=== PATIENT | female | born 1935 | race Caucasian/White ===

== ENCOUNTER 2016-06-17 16:22 | Inpatient (IN) | payer OTHER, MEDICARE ==
[~2016-06-17] VITALS: Ht 157.5 cm; Wt 62.6 kg
[~2016-06-17 16:22] MED LIST changes: -AMIT10TA6 PO; -CNC1KV IJ; -DICL100G18 TOP; -GABA-486 PO; -HYDR-3812 PO; -LOSA50TA36 PO; -OMEG-160 PO; -SERT50TA9 PO
[2016-06-17 16:45] VITALS: BP 135/76
[2016-06-17] MEDS ORDERED: ACETAMINOPHEN 500 MG TAB (TYLENOL) PO PRN (16:45)
[2016-06-17] MEDS ORDERED: ONDANSETRON 4 MG (ZOFRAN) ORAL DISSOLVE TAB PO PRN (16:45)
[2016-06-17] MEDS ORDERED: ALPRAZolam 0.25 MG (XANAX) TAB PO PRN (16:45)
[2016-06-17] MEDS ORDERED: ONDANSETRON 4 MG/2 ML (SDV) Z0FRAN IVP PRN (16:45)
--- OUTSIDE RECORDS SUMMARY | 2016-06-17 16:53 | XMS REPORT | Continuity of Care Document ---
Author Author [facility] Organization [facility] Address Unknown Phone Unavailable Care Team Providers Care Healthcare Customer Service Name Role Phone SHARLENE RUDOLPH DO PCP Insurance Providers Payer Name Policy Number Subscriber Name Relationship Wps Medicare [id number] Charla Holland 20 Self / Same As Patient Advance Directives Directive Response Recorded Date/Time Advance Directives No 02/19/15 8:21am Health Care Power of Loan And Credit Manager No 02/19/15 8:21am Organ Donor Yes 02/19/15 [...] Discharge/Depart Date Attending Provider Registered Clinic [facility] 02/06/16 7:25am BIJU ROJAS MD Registered Clinic [facility] 01/28/16 10:29am BIJU ROJAS MD Discharged Recurring [facility] 11/26/15 10:42am 11:59pm BIJU ROJAS MD
[2016-06-17] MEDS ORDERED: CATHETER FLUSH 10 ML SYR IV PRN (17:00)
[2016-06-17] MEDS ORDERED: NS IV 500 ML 500 ML ONE (17:23)
[2016-06-17] MEDS: fentaNYL INJECTION 100 MCG/2 ML AMP IVP PRN ×3 (17:37→21:58)
[2016-06-17] MEDS: NS IV 1000 ML 1,000 ML IV SCH (17:38)
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
[2016-06-17 18:17] LABS: BASOPHILS # (AUTO) 0.1 10^3/uL (0.0-0.1); BASOPHILS % (AUTO) 1 % (0-10); EOSINOPHILS # (AUTO) 0.2 10^3/uL (0.0-0.3); EOSINOPHILS % (AUTO) 2 % (0-10); LYMPHOCYTES # (AUTO) 1.1 X 10^3 (1.0-4.0); LYMPHOCYTES % (AUTO) 9 % (12-44); MEAN CORPUSCULAR HEMOGLOBIN 31 PG (25-34); MEAN CORPUSCULAR HGB CONC 34 G/DL (32-36); MEAN CORPUSCULAR VOLUME 92 FL (80-99); MEAN PLATELET VOLUME 9.3 FL (7.4-10.4); MONOCYTES % (AUTO) 8 % (0-12); NEUTROPHILS # (AUTO) 10.5 X 10^3 (1.8-7.8); NEUTROPHILS % (AUTO) 82 % (42-75); PLATELET COUNT 201 10^3/uL (130-400); RED BLOOD COUNT 4.47 10^6/uL (4.35-5.85); RED CELL DISTRIBUTION WIDTH 12.7 % (10.0-14.5); WHITE BLOOD COUNT 12.8 10^3/uL (4.3-11.0)
[2016-06-17 18:38] LABS: ALANINE AMINOTRANSFERASE 18 U/L (0-55); ALBUMIN 4.1 G/DL (3.2-4.5); ANION GAP 9 MMOL/L (5-14); ASPARTATE AMINO TRANSFERASE 15 U/L (5-34); BILIRUBIN,TOTAL 0.3 MG/DL (0.1-1.0); BLOOD UREA NITROGEN 15 MG/DL (7-18); BUN/CREATININE RATIO 22; CALCIUM 9.1 MG/DL (8.5-10.1); CARBON DIOXIDE 25 MMOL/L (21-32); CHLORIDE 106 MMOL/L (98-107); CREATININE SERUM 0.68 MG/DL (0.60-1.30); GFR ESTIMATED > 60; GLUCOSE 113 MG/DL (70-105); POTASSIUM 3.7 MMOL/L (3.6-5.0); SODIUM 140 MMOL/L (135-145); TOTAL PROTEIN 6.7 G/DL (6.4-8.2)
[2016-06-17 20:00] VITALS: BP 165/80
[2016-06-17] MEDS: HYDROcodone/APAP 5 MG/325 MG (LORTAB) TAB PO PRN (20:10)
[2016-06-17] MEDS: POLYETHYLENE GLYCOL 17 GM (MIRALAX) PACK PO SCH (21:00)
[2016-06-17] MEDS: BISACODYL 10 MG SUPP (DULCOLAX) PR SCH (21:00)
[2016-06-18] VITALS: BP 179/84
[2016-06-18 04:00] VITALS: BP 130/84
[2016-06-18 05:55] LABS: BASOPHILS # (AUTO) 0.1 10^3/uL (0.0-0.1); BASOPHILS % (AUTO) 1 % (0-10); EOSINOPHILS # (AUTO) 0.6 10^3/uL (0.0-0.3); EOSINOPHILS % (AUTO) 6 % (0-10); LYMPHOCYTES # (AUTO) 1.2 X 10^3 (1.0-4.0); LYMPHOCYTES % (AUTO) 12 % (12-44); MEAN CORPUSCULAR HEMOGLOBIN 32 PG (25-34); MEAN CORPUSCULAR HGB CONC 34 G/DL (32-36); MEAN CORPUSCULAR VOLUME 92 FL (80-99); MEAN PLATELET VOLUME 9.7 FL (7.4-10.4); MONOCYTES # (AUTO) 0.9 X 10^3 (0.0-1.0); MONOCYTES % (AUTO) 8 % (0-12); NEUTROPHILS # (AUTO) 7.9 X 10^3 (1.8-7.8); NEUTROPHILS % (AUTO) 74 % (42-75); PLATELET COUNT 172 10^3/uL (130-400); RED BLOOD COUNT 4.06 10^6/uL (4.35-5.85); RED CELL DISTRIBUTION WIDTH 12.5 % (10.0-14.5); WHITE BLOOD COUNT 10.7 10^3/uL (4.3-11.0)
[2016-06-18] MEDS: NS IV 1000 ML 1,000 ML IV SCH (06:18)
[2016-06-18 06:19] LABS: ALANINE AMINOTRANSFERASE 12 U/L (0-55); ALBUMIN 3.7 G/DL (3.2-4.5); ANION GAP 8 MMOL/L (5-14); ASPARTATE AMINO TRANSFERASE 12 U/L (5-34); BILIRUBIN,TOTAL 0.7 MG/DL (0.1-1.0); BLOOD UREA NITROGEN 9 MG/DL (7-18); BUN/CREATININE RATIO 15; CALCIUM 8.4 MG/DL (8.5-10.1); CARBON DIOXIDE 22 MMOL/L (21-32); CHLORIDE 109 MMOL/L (98-107); CREATININE SERUM 0.62 MG/DL (0.60-1.30); GFR ESTIMATED > 60; GLUCOSE 107 MG/DL (70-105); POTASSIUM 3.5 MMOL/L (3.6-5.0); SODIUM 139 MMOL/L (135-145); TOTAL PROTEIN 5.7 G/DL (6.4-8.2)
[2016-06-18] MEDS: fentaNYL INJECTION 100 MCG/2 ML AMP IVP PRN ×5 (06:25→22:42)
[2016-06-18 08:00] VITALS: BP 115/74
[2016-06-18] MEDS: POLYETHYLENE GLYCOL 17 GM (MIRALAX) PACK PO SCH ×2 (09:00→21:00)
[2016-06-18] MEDS: BISACODYL 10 MG SUPP (DULCOLAX) PR SCH ×2 (09:00→21:00)
[2016-06-18] MEDS ORDERED: amLODIPine 5 MG (NORVASC) TAB PO NR (09:15)
[2016-06-18] MEDS: NS W/KCL 20 MEQ/L 1,000 ML IV SCH ×2 (09:30→21:46)
[2016-06-18] MEDS ORDERED: OMEG-160 PO (09:41)
[2016-06-18] MEDS ORDERED: SERT50TA9 PO (09:41)
[2016-06-18] MEDS ORDERED: AMIT10TA6 PO (09:41)
[2016-06-18] MEDS ORDERED: LOSA50TA36 PO (09:41)
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
[2016-06-18] MEDS: HYDROcodone/APAP 5 MG/325 MG (LORTAB) TAB PO PRN (09:47)
[2016-06-18] MEDS ORDERED: CNC1KV IJ (09:50)
--- NOTE | 2016-06-18 10:50 | Consultation-Cardiology ---
HPI-Cardiology Cardiology Consultation: Date of Consultation 06/18/16 Date of Admission Attending Physician Solange Valentin DO Admitting Physician Justus Hammonds DO Consulting Physician Saúl BARNES MD HPI: Chief Complaint: hip fracture this is a 80-year-old lady with no significant past cardiac history. She presents with a mechanical fall resulting in right hip fracture. Hip surgery under general anesthesia is planned today. She has no cardiac symptoms. She specifically denies chest pain, shortness of breath, syncope, near syncope. She has decent functional capacity. Review of Systems-Cardiology Review of Systems Constitutional: No As described under HPI, No no symptoms reported, No chills, No fever, No lightheadedness, No malaise, No tiredness, No weight loss, No weight gain, No other Eyes: No As described under HPI, No no symptoms reported, No blindness, No blurred vision, No contact lenses, No drainage, No decreased acuity, No foreign body sensation, No glasses, No inflammation, No pain, No photophobia, No previous injury, No shadows, No tunnel vision, No other, No vision change Ears/Nose/Throat: No As described under HPI, No no symptoms reported, No chronic hearing loss, No epistaxis, No ear discharge, No ear pain, No loose teeth, No mouth pain, No mouth swelling, No nasal drainage, No nose pain, No recent hearing loss, No throat pain, No throat swelling, No ulcerations, No other Respiratory: No no symptoms reported, No As described under HPI, No cough, No orthopnea, No shortness of breath, No SOB with excertion, No SOB at rest, No stridor, No wheezing, No other Cardiovascular: No no symptoms reported, No As described under HPI, No chest pain, No edema, No irregular heart rate, No lightheadedness, No palpitations, No syncope, No other Gastrointestinal: No no symptoms reported, No As described under HPI, No abdomen distended, No abdominal pain, No blood streaked bowels, No constipation , No diarrhea, No difficulty swallowing, No nausea, No poor appetite, No poor fluid intake, No rectal bleeding, No vomiting, No other, No nausea/vomiting/ diarrhea, No stool coloration changes Musculoskeletal: joint pain Skin: No no symptoms reported, No As described under HPI, No change in color, No change in hair/nails, No dryness, No lesions, No lumps, No rash, No other, No skin related problems, No ulcerations, No rash on exposed areas, No ulcerations on exposed areas Psychiatric/Neurological: No As described under HPI, No anxiety, No depression , No emotional problems, No focal weakness, No headache, No no symptoms reported , No numbness, No other, No pre-existing deficit, No seizure, No syncope, No tingling, No tremors, No weakness Hematologic: No no symptoms reported, No As described under HPI, No anemia, No blood clots, No easy bleeding, No easy bruising, No swollen glands, No other, No bleeding abnormalities All Other Systems Reviewed Negative Unless Noted: Yes NWD-Cvdwud-Hzdrca Hx Patient Social History Alcohol Use: Denies Use Recreational Drug Use: No Smoking Status: Never a Smoker Recent Foreign Travel: No Recent Infectious Disease Expo: No Physical Abuse Screen: No Sexual Abuse: No Immunizations Up To Date Date of Pneumonia Vaccine: Jun 17, 2013 Date of Influenza Vaccine: Mar 07, 2016 Past Medical History PMH As described under Assessment. Family Medical History Family History: CORNARY THROMBOSIS 19 MOTHER FH: coronary thrombosis Allergies and Home Medications Allergies Coded Allergies: No Known Drug Allergies (Verified , 02/19/15) Home Medications Amitriptyline HCl 10 Mg Tablet 10 MG PO HS (Reported) Aspirin 81 Mg Tablet.dr 81 MG PO HS (Reported) Cholecalciferol (Vitamin D3) 2,000 Unit Capsule 2,000 UNIT PO DAILY (Reported) Cyanocobalamin 1,000 Mcg/Ml Inj 1,000 MCG IJ MONTHLY (Reported) Dicyclomine HCl 20 Mg Tablet 20 MG PO TID PRN PRN ABDOMINAL PAIN (Reported) Glucosa Porter 2Kcl/Chondroitin Porter 1 Each Capsule 1 CAP PO BID (Reported) Losartan Potassium 50 Mg Tablet 50 MG PO DAILY (Reported) Multivitamin with Minerals 1 Each Tablet 1 TAB PO DAILY (Reported) [place]-3/Dha/Epa/Fish Oil 1 Each Capsule 1,000 MG PO DAILY (Reported) Sertraline HCl 50 Mg Tablet 25 MG PO DAILY (Reported) TAKES 1/2 OF A (50 MG) TABLET Simvastatin 20 Mg Tablet 20 MG PO HS (Reported) Ubidecarenone 400 Mg Capsule 400 MG PO DAILY (Reported) Physical Exam-Cardiology Physical Exam Vital Signs/I&O Vital Sign - Last 12Hours 06/18/16 06/18/16 06/18/16 06/18/16 00:00 04:00 08:00 10:08 Temp 98.0 97.2 96.4 Pulse 104 86 78 Resp 18 20 18 B/P 179/84 130/84 115/74 Pulse Ox 91 97 92 88 O2 Delivery Room Air Room Air Room Air 06/18/16 10:28 Pulse Ox 92 O2 Delivery Nasal Cannula FiO2 2 Intake and Output 06/18/16 00:00 Intake Total 620 ml Output Total 500 ml Balance 120 ml Capillary Refill : Less Than 3 Seconds Constitutional: No appears stated age, No AAO x 3, No apparent distress (mild pain), No PERRL, No well-developed, No well-nourished, No other HEENT: No PERRL, No normal ENT inspection, No TMs normal, No pharynx normal, No scleral icterus (R), No scleral icterus (L), No pale conjunctivae (R), No pale conjunctivae (L), No photophobia, No TM abnormal (R), No TM abnormal (L), No pharyngeal erythema, No tonsillar exudate, No other, No discharge, No EOMI, No hearing is well preserved, No hard of hearing, No oral hygience is good, No ulceration, No xanthelasmas are seen Neck: No non-tender, No full range of motion, No supple, No normal inspection, No carotid bruit, No limited range of motion, No lymphadenopathy (R), No lymphadenopathy (L), No tender lateral, No tender midline, No thyromegaly, No other, No carotid pulses are 2 + bilaterally, No with good upstrokes Respiratory: No accessory muscle use, No respiratory distress, No chest tender , No chest expansion is symmetric, No chest is bilaterally symmetric, No lungs clear to percussion, No lungs clear to auscultation, No crackles, No rhonchi, No rales, No stridor, No wheezing, No pleural rub, No other Cardiovascular: No regular rate-rhythm, No irregularly irregular, No extra beats, No parasternal heave is noted, No JVD, No edema, No bradycardia, No tachycardia, No point of maximal impulse, No cardiac thrills are palpable, No S1 and S2, No gallop/S3, No gallop/S4, No diastolic murmur, No systolic murmur, No friction rub, No click, No other Gastrointestinal: No tender, No soft, No round, No distended, No pulsatile mass , No organomegaly, No guarding, No rebound, No tenderness, No hernia, No mass, No audible bowel sounds, No abnormal bowel sounds, No abdominal bruits, No spleenomegaly, No other Rectal: deferred Extremities: other (right hip pain) Neurologic/Psychiatric: No training mgr II-XII nml as tested, No no motor/sensory deficits, No alert, No normal mood/affect, No oriented x 3, No abnormal cerebellar tests, No abnormal training mgr II-XII, No abnormal gait, No aphasia, No EOM palsy, No facial droop, No motor weakness, No sensory deficit, No depressed affect, No disoriented x 3, No other, No grossly intact, No power is 5/5 both on sides Data Review Labs Laboratory Tests 06/17/16 18:00: Alanine Aminotransferase (ALT/SGPT) 18, Albumin 4.1, Alkaline Phosphatase 94, Anion Gap 9, Aspartate Amino Transf (AST/SGOT) 15, BUN/Creatinine Ratio 22, Basophils # (Auto) 0.1, Basophils (%) (Auto) 1, Blood Urea Nitrogen 15, Calcium Level 9.1, Carbon Dioxide Level 25, Chloride Level 106, Creatinine 0.68, Eosinophils # (Auto) 0.2, Eosinophils (%) (Auto) 2, Estimat Glomerular Filtration Rate > 60, Glucose Level 113H, Hematocrit 41, Hemoglobin 14.0, Lymphocytes # (Auto) 1.1, Lymphocytes (%) (Auto) 9L, Mean Corpuscular Hemoglobin 31, Mean Corpuscular Hemoglobin Concent 34, Mean Corpuscular Volume 92, Mean Platelet Volume 9.3, Monocytes # (Auto) 1.0, Monocytes (%) (Auto) 8, Neutrophils # (Auto) 10.5H, Neutrophils (%) (Auto) 82H, Platelet Count 201, Potassium Level 3.7, Red Blood Count 4.47, Red Cell Distribution Width 12.7, Sodium Level 140, Total Bilirubin 0.3, Total Protein 6.7, White Blood Count 12.8H 06/18/16 05:39: Alanine Aminotransferase (ALT/SGPT) 12, Albumin 3.7, Alkaline Phosphatase 87, Anion Gap 8, Aspartate Amino Transf (AST/SGOT) 12, BUN/Creatinine Ratio 15, Basophils # (Auto) 0.1, Basophils (%) (Auto) 1, Blood Urea Nitrogen 9, Calcium Level 8.4L, Carbon Dioxide Level 22, Chloride Level 109H, Creatinine 0.62, Eosinophils # (Auto) 0.6H, Eosinophils (%) (Auto) 6, Estimat Glomerular Filtration Rate > 60, Glucose Level 107H, Hematocrit 37, Hemoglobin 12.8, Lymphocytes # (Auto) 1.2, Lymphocytes (%) (Auto) 12, Mean Corpuscular Hemoglobin 32, Mean Corpuscular Hemoglobin Concent 34, Mean Corpuscular Volume 92, Mean Platelet Volume 9.7, Monocytes # (Auto) 0.9, Monocytes (%) (Auto) 8, Neutrophils # (Auto) 7.9H, Neutrophils (%) (Auto) 74, Platelet Count 172, Potassium Level 3.5L, Red Blood Count 4.06L, Red Cell Distribution Width 12.5, Sodium Level 139, Total Bilirubin 0.7, Total Protein 5.7L, White Blood Count 10.7 ECG Impression ECG Initial ECG Rhythm: Normal Sinus A/P-Cardiology Assessment/Admission Diagnosis preoperative cardiac assessment, hip fracture Plan no significant cardiac history. No cardiac symptoms. Decent functional capacity. This patient is at low to intermediate risk for perioperative major adverse cardiac events undergoing moderate risk noncardiac surgery. There is no cardiac contraindication for the above-mentioned procedure. Thank you for your consultation. Please call me if you have any questions. Guillermo Barnes MD, FACP, FACC, FSCAI, FHRS, CCDS Interventional Cardiology Cardiac Electrophysiology Vascular Medicine and Endovascular Interventions Clinical Quality Measures DVT/VTE Risk/Contraindication: Risk Factor Score Per Nursin RFS Level Per Nursing on Admit: 4+=Very High Contraindications-Pharm: Other *list below* Other: surgery Saúl BARNES MD Jun 18, 2016 10:50 am
--- NOTE | 2016-06-18 11:28 | Occ Therapy Progress Note ---
Therapy Progress Note OT order received. However, pt. going in for surgery today of ORIF of right femoral neck. Will evaluation in a.m. after surgery. [id number] JJ DURAND OT Jun 18, 2016 11:28
[2016-06-18] MEDS: RT-ALBUTEROL SULF 2.5 MG/3 ML PRE-MIX VIAL INH SCH ×3 (11:38→19:04)
--- NOTE | 2016-06-18 11:51 | Diagnostic Imaging Report ---
EXAMINATION: PA and lateral views of the chest. INDICATION: Fever. FINDINGS: The heart size is mildly enlarged with suggestion of mild pulmonary vascular congestion. There is minimal left basilar atelectasis. No effusion or pneumothorax. Mediastinum and suad appear unremarkable. IMPRESSION: Cardiomegaly with minimal vascular congestion. Subsegmental left basilar atelectasis. Dictated by: Dictated on workstation # [id number]
[2016-06-18 12:45] VITALS: BP 146/67
[2016-06-18] MEDS ORDERED: GENTAMICIN 40 MG/ML 2 ML INJ SDV ONE (13:49)
[2016-06-18] MEDS ORDERED: ROCURONIUM 50 MG/5 ML (ZEMURON) VIAL IV ONE (14:16)
[2016-06-18] MEDS ORDERED: LIDOCAINE PF 2% 10 ML (XYLOCAINE) AMP ONE (14:16)
[2016-06-18] MEDS ORDERED: fentaNYL INJECTION 100 MCG/2 ML AMP ONE (14:16)
[2016-06-18] MEDS ORDERED: proPOfol 200 MG/20 ML (DIPRIVAN) VIAL IV ONE (14:16)
[2016-06-18] MEDS ORDERED: ONDANSETRON 4 MG/2 ML (SDV) Z0FRAN ONE (14:16)
[2016-06-18] MEDS ORDERED: LACTATED RINGERS 1,000 ML IV ONE ×2 (14:16→15:47)
[2016-06-18] MEDS ORDERED: MIDAZOLAM 2 MG/2 ML (VERSED) VIAL ONE (14:17)
[2016-06-18] MEDS ORDERED: ceFAZolin 1,000 MG (ANCEF) VIAL ONE (14:38)
[2016-06-18] MEDS ORDERED: SEVOFLURANE (ULTANE) 15 ML INHAL SOLN ONE ×3 (14:53→15:47)
[2016-06-18] MEDS ORDERED: RT-ALBUTEROL SULF 2.5 MG/3 ML PRE-MIX VIAL INH PRN (15:00)
[2016-06-18] MEDS ORDERED: ONDANSETRON 4 MG/2 ML (SDV) Z0FRAN IV PRN ×3 (15:15→16:00)
[2016-06-18] MEDS ORDERED: morphine INJ 10 MG/ML 1ML (SYR OR VIAL) IV PRN (15:15)
[2016-06-18] MEDS ORDERED: ceFAZolin 1,000 MG (ANCEF) VIAL IVP SCH (15:15)
[2016-06-18] MEDS ORDERED: LACTATED RINGERS 1,000 ML IV SCH (15:15)
--- NOTE | 2016-06-18 15:53 | Progress Note-Post Operative ---
Post-Operative Progess Note Construction Manager Asael Smith PA-C Pre-Operative Diagnosis right femoral neck fracture Post-Operative Diagnosis same Post-Op Procedure Note Date of Procedure: Jun 18, 2016 Name of Procedure: Bipolar hemiarthroplasty right hip Procedure Note/Findings Right subcapital femoral neck fracture Anesthesia Type General Estimated blood loss (mL): 50 ml Packing: none Specimen(s) collected none KWAME VALENTIN MD Jun 18, 2016 15:53
[2016-06-18] MEDS ORDERED: morphine INJ 4 MG/ML 1 ML (VIAL/SYRINGE) IVP PRN (16:00)
[2016-06-18] MEDS ORDERED: morphine INJ 10 MG/ML 1ML (SYR OR VIAL) ONE (16:09)
--- NOTE | 2016-06-18 16:14 | Diagnostic Imaging Report ---
INDICATION: Right hip pain. FINDINGS: AP view pelvis shows postop changes from right hip arthroplasty. Prosthesis in good position. Alignment is normal. IMPRESSION: Postop changes of right hip arthroplasty. No acute abnormality seen. Dictated by: Dictated on workstation # [id number]
[2016-06-18] MEDS: morphine INJ 10 MG/ML 1ML (SYR OR VIAL) IV PRN ×2 (16:18→16:25)
[2016-06-18 17:00] VITALS: BP 166/79
[2016-06-18] MEDS: 1/2 NS IV SOLUTION 1,000 ML IV SCH ×2 (18:50→21:44)
[2016-06-18 19:10] VITALS: BP 172/72
[2016-06-18] MEDS: oxyCODONE/APAP 5/325MG (PERCOCET 5) TABLET PO PRN (20:06)
[2016-06-18] MEDS: DOCUSATE SODIUM 100 MG (COLACE) CAP PO SCH (21:43)
[2016-06-18] MEDS: ceFAZolin 2 GM IV (SDC ONLY) 50 ML IV SCH (21:43)
[2016-06-18] MEDS ORDERED: ceFAZolin 2 GM IV (SDC ONLY) 50 ML IV SCH (22:00)
[2016-06-19] VITALS: BP 168/74
[2016-06-19] MEDS: fentaNYL INJECTION 100 MCG/2 ML AMP IVP PRN ×2 (01:12→06:59)
[2016-06-19] MEDS: HYDROcodone/APAP 5 MG/325 MG (LORTAB) TAB PO PRN ×3 (02:13→12:17)
[2016-06-19 04:00] VITALS: BP 171/80
[2016-06-19] MEDS: ceFAZolin 2 GM IV (SDC ONLY) 50 ML IV SCH (05:18)
[2016-06-19] MEDS: ACETAMINOPHEN 325 MG TABLET/CAPLET (TYLENOL) PO PRN ×2 (05:18→20:00)
[2016-06-19 06:22] LABS: BASOPHILS % (AUTO) 0 % (0-10); EOSINOPHILS # (AUTO) 0.2 10^3/uL (0.0-0.3); EOSINOPHILS % (AUTO) 1 % (0-10); LYMPHOCYTES # (AUTO) 0.9 X 10^3 (1.0-4.0); LYMPHOCYTES % (AUTO) 7 % (12-44); MEAN CORPUSCULAR HEMOGLOBIN 31 PG (25-34); MEAN CORPUSCULAR HGB CONC 34 G/DL (32-36); MEAN CORPUSCULAR VOLUME 92 FL (80-99); MEAN PLATELET VOLUME 9.6 FL (7.4-10.4); MONOCYTES # (AUTO) 1.2 X 10^3 (0.0-1.0); MONOCYTES % (AUTO) 9 % (0-12); NEUTROPHILS # (AUTO) 10.5 X 10^3 (1.8-7.8); NEUTROPHILS % (AUTO) 82 % (42-75); PLATELET COUNT 163 10^3/uL (130-400); RED BLOOD COUNT 3.69 10^6/uL (4.35-5.85); RED CELL DISTRIBUTION WIDTH 12.3 % (10.0-14.5); WHITE BLOOD COUNT 12.8 10^3/uL (4.3-11.0)
[2016-06-19 06:44] LABS: ALANINE AMINOTRANSFERASE 16 U/L (0-55); ALBUMIN 3.5 G/DL (3.2-4.5); ANION GAP 9 MMOL/L (5-14); ASPARTATE AMINO TRANSFERASE 23 U/L (5-34); BILIRUBIN,TOTAL 0.8 MG/DL (0.1-1.0); BLOOD UREA NITROGEN 7 MG/DL (7-18); BUN/CREATININE RATIO 11; CALCIUM 8.3 MG/DL (8.5-10.1); CARBON DIOXIDE 23 MMOL/L (21-32); CHLORIDE 98 MMOL/L (98-107); CREATININE SERUM 0.61 MG/DL (0.60-1.30); GFR ESTIMATED > 60; GLUCOSE 143 MG/DL (70-105); POTASSIUM 3.2 MMOL/L (3.6-5.0); SODIUM 130 MMOL/L (135-145); TOTAL PROTEIN 5.6 G/DL (6.4-8.2)
[2016-06-19] MEDS: RT-ALBUTEROL SULF 2.5 MG/3 ML PRE-MIX VIAL INH SCH ×4 (07:00→20:25)
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
[2016-06-19 08:00] VITALS: BP 169/73
--- NOTE | 2016-06-19 08:18 | OPERATIVE REPORT ---
PROCEDURE PHYSICIAN: KWAME VALENTIN DATE OF PROCEDURE: 06/18/2016 PREOPERATIVE DIAGNOSIS: Right femoral neck fracture. POSTOPERATIVE DIAGNOSIS: Right femoral neck fracture. PROCEDURE: Bipolar hemiarthroplasty right hip. SURGEON: Iza ASSISTING: LARA Acosta. Fast Food Crew Member surgeon duties: Patient positioning, retraction, wound closure, use of total joint instrumentation, application sterile dressings. Use of refinery operator assistant is medically indicated. COMPLICATIONS: None. BLOOD LOSS: 50 mL. SPECIMENS: None. IMPLANTS: DePuy Tri-Lock standard offset press-fit femoral stem with a standard femoral head, neck length and a 44 mm bipolar head. PROCEDURE IN DETAIL: After informed consent, the patient was transported to over the operating she was placed on the operating table in the supine position. General anesthesia was induced. She was then turned to the left lateral decubitus position on the peg board. An axillary roll was placed. The right lower extremity was prepped with ChloraPrep and draped in the sterile fashion and [place] was placed on the skin. A curvilinear incision was made on the lateral aspect of the right hip. It was carried out through subcutaneous tissues down to the deep fascia. The fascia roosevelt and gluteus fascia were divided in line with skin incision and the gluteus argentina was bluntly split. The [place] self-retaining hip retractor was placed. The direct lateral approach was utilized. The hip was excellently rotated. The abductors were taken down anteriorly off of the greater trochanter reflecting the medius and minimus tendons anteriorly and protecting them for repair. The abductors were split anteriorly and superiorly toward the iliac crest so that the muscle bellies could be retracted anteriorly. The joint capsule was opened and excised. Fracture hematoma extruded. The fracture was noted and the femoral neck was resected with a sagittal saw. The femoral head was removed from the acetabulum. The femoral head was measured appeared to be a 44. The acetabulum appeared to have good articular cartilage with no degenerative joint disease. The canal finder was utilized followed by the T-handle reamer and broaches up to a number 3 broach which obtained a good press-fit in the canal. The broach was left in place. I trialed a standard offset femoral neck, a standard neck length femoral head and the 44 bipolar head. The hip was reduced. It did not appear to 50 too tight and the leg lengths appeared to be equal and the hip was stable. The hip then was dislocated. Trial components were removed. The hip was thoroughly irrigated and a number 3 Tri-Lock stem was impacted for a good press-fit. It was placed at 15 degrees of anteversion. Standard neck length femoral head and 44 bipolar head were impacted on the stem. The hip was again reduced felt to be stable. The joint was thoroughly irrigated with pulse lavage. Joint capsule was repaired with interrupted 5-0 Ethibond followed by interrupted 5-0 Ethibond to repair of the gluteus medius and minimus tendons to the remaining tendon at the greater trochanter and directly through the greater trochanter through drill holes. This was reinforced with interrupted number 1 Vicryl suture for good stable repair. The gluteus fascia and fascia roosevelt were closed with a running double layered number 2 SRATAFIX suture followed by running and interrupted 2-0 Vicryl in subcuticular 3-0 SRATAFIX on the skin. Steri-Strips and sterile dressings were applied. The patient was then transported to the recovery room in stable condition. Job ID: [id number] Dictated Date: 06/18/2016 15:46:41 Nut Tapper Date: 06/19/2016 08:06:29 / naomy
[2016-06-19] MEDS: POLYETHYLENE GLYCOL 17 GM (MIRALAX) PACK PO SCH ×2 (08:20→19:54)
[2016-06-19] MEDS: DOCUSATE SODIUM 100 MG (COLACE) CAP PO SCH ×2 (08:20→20:00)
[2016-06-19] MEDS: ENOXAPARIN 40 MG/0.4 ML (LOVENOX) SYR SC SCH (08:20)
[2016-06-19] MEDS: BISACODYL 10 MG SUPP (DULCOLAX) PR SCH ×2 (10:43→19:54)
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
--- NOTE | 2016-06-19 11:51 | Progress Note-Hospitalist ---
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 Pt has requested breathing treatments. Plan: CXR Blood Cx MAT protocol Scribed by Ubaldo Garcia under the direct supervision of Dr. Valentin. Progress Notes/Assess & Plan Date Seen 06/19/16 Admission Dx/Process acute right hip fracture Hypertension Coarse breath sounds in the bases with history of pneumonia and atelectasis of the left lower lobe Anxiety Diagonsis/Assessment & Plan Patient having difficulty motivating to even get out of bed today Noted fever but she is receiving nebulizer treatments twice a day and using incentive spirometer I did speak with her daughter who is aware that she is not motivating Inpatient rehabilitation candidate except the patient on Wednesday if so chooses to do that We'll recheck chest x-ray and placed on fluid restriction stop the one half normal saline IV fluids and recheck labs tomorrow Fever 101.5 earlier today Pleasant, frail, thin, flat affect Regular rate and rhythm, clear to auscultation bilaterally but decreased breath since the bases but much improved from yesterday No edema Laboratory Tests 06/19/16 06:06 Assessment: Acute right hip fracture s/p repair POD # 1 Hyponatremia Hypertension Coarse breath sounds in the bases with history of pneumonia and atelectasis of the left lower lobe now w/fever so ordered Nebs and IS Anxiety Poor motivation currently Nebulizer treatments CXR today use incentive spirometer PT/OT to motivate patient to get out of bed Fluid restriction STEWART VALENTIN DO Jun 19, 2016 11:51
[2016-06-19 12:00] VITALS: BP 137/83
[2016-06-19] MEDS: KCL 20 MEQ TAB (K-DUR) PO SCH ×2 (12:17→20:00)
--- NOTE | 2016-06-19 12:59 | Progress Note (SOAP) ---
Subjective Subjective/Events-last exam Postop day one bipolar hemiarthroplasty right hip. She is up in a chair doing exercises with PT. She seems anxious and says she does not want to be on a lot of pain meds or xanax because she feels "doped up. " When I told her I could just give her tylenol she said she is not ready to stop the pain medications yet. She is alert and awake. Objective Exam Vital Signs Date Time Temp Pulse Resp B/P Pulse Ox O2 Delivery O2 Flow Rate FiO2 06/19/16 10:58 98 Nasal Cannula 3.00 06/19/16 09:00 Nasal Cannula 3.00 06/19/16 08:20 99.7 06/19/16 08:00 100.4 101 20 169/73 96 Nasal Cannula 3.00 06/19/16 06:00 99.7 06/19/16 05:18 101.5 06/19/16 04:00 101.2 106 20 171/80 95 Nasal Cannula 3.00 06/19/16 00:00 100.8 108 20 168/74 95 Nasal Cannula 3.00 06/18/16 21:00 Nasal Cannula 3.00 06/18/16 19:10 99.0 99 18 172/72 95 Nasal Cannula 3.00 06/18/16 19:04 94 Nasal Cannula 3.00 06/18/16 17:00 97.6 95 20 166/79 99 Nasal Cannula 3.00 06/18/16 16:25 98.2 06/18/16 16:18 98.2 I & O 06/19/16 07:00 Intake Total 1100 ml Output Total 2300 ml Balance -1200 ml Capillary Refill : Less Than 3 Seconds General Appearance: Anxious Extremity: Normal Capillary Refill Normal Inspection Non Tender No Calf Tenderness Other (Incision healing well.) Neurologic/Psychiatric: Oriented x3 No Motor/Sensory Deficits Results Lab Laboratory Tests 06/19/16 06:06: Alanine Aminotransferase (ALT/SGPT) 16, Albumin 3.5, Alkaline Phosphatase 68, Anion Gap 9, Aspartate Amino Transf (AST/SGOT) 23, BUN/Creatinine Ratio 11, Basophils # (Auto) 0.0, Basophils (%) (Auto) 0, Blood Urea Nitrogen 7, Calcium Level 8.3L, Carbon Dioxide Level 23, Chloride Level 98, Creatinine 0.61, Eosinophils # (Auto) 0.2, Eosinophils (%) (Auto) 1, Estimat Glomerular Filtration Rate > 60, Glucose Level 143H, Hematocrit 34L, Hemoglobin 11.6, Lymphocytes # (Auto) 0.9L, Lymphocytes (%) (Auto) 7L, Mean Corpuscular Hemoglobin 31, Mean Corpuscular Hemoglobin Concent 34, Mean Corpuscular Volume 92, Mean Platelet Volume 9.6, Monocytes # (Auto) 1.2H, Monocytes (%) (Auto) 9, Neutrophils # (Auto) 10.5H, Neutrophils (%) (Auto) 82H, Platelet Count 163, Potassium Level 3.2L, Red Blood Count 3.69L, Red Cell Distribution Width 12.3, Sodium Level 130L, Total Bilirubin 0.8, Total Protein 5.6L, White Blood Count 12.8H Microbiology 06/17/16 MRSA Screen - Final, Complete MRSA not isolated Assessment/Plan Assessment/Plan Assess & Plan/Chief Complaint Right femoral neck fracture, postop hemiarthroplasty-- continue PT. Rehab consult. Daily dressing changes. Diagnosis/Problems: (1) Hip fracture, right Qualifiers: Qualified Code: S72.001D - Fracture of unspecified part of neck of right femur, subsequent encounter for closed fracture with routine healing Clinical Quality Measures DVT/VTE Risk/Contraindication: Risk Factor Score Per Nursin RFS Level Per Nursing on Admit: 4+=Very High Contraindications-Pharm: Other *list below* Other: surgery KWAME VALENTIN MD Jun 19, 2016 12:59
--- NOTE | 2016-06-19 13:28 | Physical Therapy Daily Note ---
PT Daily Note-Current Subjective Agrees. Prefers to stay up in the chair. Pain Numeric Pain Scale: 3 Location: Right Location Body Site: Hip Pain Description: Ache Transfers Functional [place] Measure 0=Not Assessed/NA 4=Minimal Assistance 1=Total Assistance 5=Supervision or Setup 2=Maximal Assistance 6=Modified [place] 3=Moderate Assistance 7=Complete IndependenceIRFPAI Quality Coding Scale 6 Independent with activity with or without an assistive device 5 Patient requires set up or clean up by helper. Patient completes activity by themselves 4 Supervision or touching assist (CGA). [place] provide cues , steadying assist 3 The helper provides less than half the effort to complete the activity 2 The helper provides more than half the effort to complete the activity 1 Dependent. The helper does all the effort to complete an activity 7 Patient refused to complete or attempt activity 9 The patient did not perform the activity before the current illness or injury 88 Not attempted due to Medical conditions or safety concerns sit to stand with CGA and cues; takes extra time to scoot forward in chair and relies heavily on B UE's to push to a stand. Sit to stand x 2 reps. WBAT. Gait Training Pt took 4-5 steps forward and then back to chair. WBAT. Exercises Seated Therapy Exercises: Ankle pumps, Long arc quads, Hamstring Curls Seated Reps: [address] Couch, standard hip precautions such as no hip flexion past 90 degrees, no IR and no adduction; he also requested no SLR. Assessment Current Status: Good Progress Progressing as expected. PT Railroad Wheels And Axles Inspector Goals Railroad Wheels And Axles Inspector Goals PT Usp Goals Time Frame: Jun 24, 2016 Transfers (B,C,W/C) (FIM): 5 Gait (FIM): 2 Gait distance (FIM): 1=up to 49 ft Gait Assistive Device: FWW PT Plan Problem List Problem List: Activity Tolerance, Functional Strength, Safety, Balance, Gait, Transfer, Bed Mobility Treatment/Plan Treatment Plan: Continue Plan of Care Treatment Plan: Bed Mobility, Education, Functional Activity Anup, Functional Strength, Gait, Safety, Therapeutic Exercise, Transfers Treatment Duration: Jun 24, 2016 Visits Per Week: 11-12 Safety Risks/Education Patient Education: Transfer Techniques Teaching Recipient: Patient Teaching Methods: Discussion Response to Teaching: Reinforcement Needed Time/GCodes Time In: 1240 Time Out: 1304 Total Billed Treatment Time: 24 Total Billed Treatment visit EX 10 FA 14 GINI ACEVES PT Jun 19, 2016 13:28
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
--- NOTE | 2016-06-19 14:20 | Anesthesia-General Post-Op ---
General Patient Condition Mental Status/LOC: Same as Preop Cardiovascular: Satisfactory Nausea/Vomiting: Absent Respiratory: Satisfactory Pain: Controlled Complications: Absent Post Op Complications Complications None Follow Up Care/Instructions Patient Instructions None needed. Anesthesia/Patient Condition Patient Condition Patient is doing well, no complaints, stable vital signs, no apparent adverse anesthesia problems. No complications reported per nursing. ROBYN GARCIA CRNA Jun 19, 2016 14:20
--- NOTE | 2016-06-19 15:37 | Diagnostic Imaging Report ---
INDICATION: Fever. TECHNIQUE: Two view chest 1:17 p.m. CORRELATION STUDY: 06/18/2016. FINDINGS: Heart size again noted to be enlarged. Vasculature is near normal on followup. Unchanged elevation of left hemidiaphragm. Some crowding of left lung base. No definitive infiltrate. Probable granuloma of the left lung base. No significant effusion. Significant gaseous distention of the stomach below the left hemidiaphragm with air-fluid level. IMPRESSION: 1. Stable cardiac enlargement with vasculature relatively normal on followup. No infiltrate or findings to suggest etiology for underlying fever. Dictated by: Dictated on workstation # [id number]
[2016-06-19 16:05] VITALS: BP 135/67
[2016-06-19 19:45] VITALS: BP 127/70
[2016-06-20] VITALS: BP 143/62
[2016-06-20] MEDS: HYDROcodone/APAP 5 MG/325 MG (LORTAB) TAB PO PRN ×4 (01:07→22:17)
[2016-06-20 04:00] VITALS: BP 138/84
[2016-06-20 06:44] LABS: BASOPHILS % (AUTO) 0 % (0-10); EOSINOPHILS # (AUTO) 0.3 10^3/uL (0.0-0.3); EOSINOPHILS % (AUTO) 3 % (0-10); LYMPHOCYTES # (AUTO) 1.2 X 10^3 (1.0-4.0); LYMPHOCYTES % (AUTO) 10 % (12-44); MEAN CORPUSCULAR HEMOGLOBIN 31 PG (25-34); MEAN CORPUSCULAR HGB CONC 33 G/DL (32-36); MEAN CORPUSCULAR VOLUME 93 FL (80-99); MEAN PLATELET VOLUME 9.6 FL (7.4-10.4); MONOCYTES # (AUTO) 1.4 X 10^3 (0.0-1.0); MONOCYTES % (AUTO) 11 % (0-12); NEUTROPHILS # (AUTO) 9.2 X 10^3 (1.8-7.8); NEUTROPHILS % (AUTO) 76 % (42-75); PLATELET COUNT 162 10^3/uL (130-400); RED BLOOD COUNT 3.66 10^6/uL (4.35-5.85); RED CELL DISTRIBUTION WIDTH 12.8 % (10.0-14.5); WHITE BLOOD COUNT 12.2 10^3/uL (4.3-11.0)
[2016-06-20] MEDS: RT-ALBUTEROL SULF 2.5 MG/3 ML PRE-MIX VIAL INH SCH ×4 (06:44→19:10)
[2016-06-20 07:03] LABS: ALANINE AMINOTRANSFERASE 17 U/L (0-55); ALBUMIN 3.4 G/DL (3.2-4.5); ANION GAP 8 MMOL/L (5-14); ASPARTATE AMINO TRANSFERASE 21 U/L (5-34); BLOOD UREA NITROGEN 10 MG/DL (7-18); BUN/CREATININE RATIO 15; CALCIUM 8.8 MG/DL (8.5-10.1); CARBON DIOXIDE 26 MMOL/L (21-32); CHLORIDE 100 MMOL/L (98-107); CREATININE SERUM 0.67 MG/DL (0.60-1.30); GFR ESTIMATED > 60; GLUCOSE 118 MG/DL (70-105); POTASSIUM 3.9 MMOL/L (3.6-5.0); SODIUM 134 MMOL/L (135-145); TOTAL PROTEIN 5.8 G/DL (6.4-8.2)
[2016-06-20 08:30] VITALS: BP 131/63
[2016-06-20] MEDS: DOCUSATE SODIUM 100 MG (COLACE) CAP PO SCH ×2 (08:32→21:04)
[2016-06-20] MEDS: ENOXAPARIN 40 MG/0.4 ML (LOVENOX) SYR SC SCH (08:32)
[2016-06-20] MEDS: KCL 20 MEQ TAB (K-DUR) PO SCH ×2 (08:32→21:04)
[2016-06-20] MEDS: POLYETHYLENE GLYCOL 17 GM (MIRALAX) PACK PO SCH ×2 (08:32→21:04)
[2016-06-20] MEDS: BISACODYL 10 MG SUPP (DULCOLAX) PR SCH ×2 (08:40→21:00)
--- NOTE | 2016-06-20 10:08 | Physical Therapy Daily Note ---
PT Daily Note-Current Subjective Pt. up in chair, agrees to therapy. Pt. reports "some" pain but says she recently had pain medication, does not give objective pain rating. Mental Status Patient Orientation: Person, Place, Time, Situation Transfers Functional [place] Measure 0=Not Assessed/NA 4=Minimal Assistance 1=Total Assistance 5=Supervision or Setup 2=Maximal Assistance 6=Modified [place] 3=Moderate Assistance 7=Complete IndependenceIRFPAI Quality Coding Scale 6 Independent with activity with or without an assistive device 5 Patient requires set up or clean up by helper. Patient completes activity by themselves 4 Supervision or touching assist (CGA). [place] provide cues , steadying assist 3 The helper provides less than half the effort to complete the activity 2 The helper provides more than half the effort to complete the activity 1 Dependent. The helper does all the effort to complete an activity 7 Patient refused to complete or attempt activity 9 The patient did not perform the activity before the current illness or injury 88 Not attempted due to Medical conditions or safety concerns Transfers (B, C, W/C) (FIM): 3 Supine to/from Sit: 3 Sit to/from Stand: 3 toilet transfer: mod A, dependent with pericare Weight Bearing Weight Bearing Restriction: Weight Bearing/Tolerated Gait Training Gait (FIM): 1 Distance (FIM): 1=up to 49 ft Distance: 10 ft Gait Level of Assist: 3 Gait Persons Needed: 1 Gait Assistive Device: FWW assist to advance R LE during gait Exercises Supine Ex: Ankle pumps Seated Therapy Exercises: Long arc quads Seated Reps: 10 Treatments toileting, transfers, gait Assessment Current Status: Good Progress Pt. is showing gradual improvement in mobility but continues to need mod-min A with transfers. She has difficulty advancing the R LE during transfers and gait. Pt. would be a good candidate for ARU for extended therapy. Pt. in bed post session with call light and all needs met. PT Mcc Goals Mcc Goals PT Mcc Goals Time Frame: Jun 24, 2016 Transfers (B,C,W/C) (FIM): 5 Gait (FIM): 2 Gait distance (FIM): 1=up to 49 ft Gait Assistive Device: FWW PT Plan Treatment/Plan Treatment Plan: Continue Plan of Care Treatment Plan: Bed Mobility, Education, Functional Activity Anup, Functional Strength, Gait, Safety, Therapeutic Exercise, Transfers Treatment Duration: Jun 24, 2016 Visits Per Week: 11-12 Time/GCodes Time In: 847 Time Out: 915 Total Billed Treatment Time: 28 Total Billed Treatment 1, FA x 28' KIANNA CUELLAR PT Jun 20, 2016 10:08
--- NOTE | 2016-06-20 10:27 | Progress Note (SOAP) ---
Subjective Subjective/Events-last exam Doing better today. She been up and walking twice this morning. Objective Exam Vital Signs Date Time Temp Pulse Resp B/P Pulse Ox O2 Delivery O2 Flow Rate FiO2 06/20/16 09:00 92 Room Air 06/20/16 08:30 97.8 105 20 131/63 92 Nasal Cannula 2.00 06/20/16 06:46 98 Nasal Cannula 2.00 06/20/16 04:00 97.8 82 17 138/84 94 Nasal Cannula 2.00 06/20/16 00:00 99.2 87 18 143/62 100 Nasal Cannula 2.00 06/19/16 21:10 97.5 06/19/16 21:09 97.5 06/19/16 21:00 Nasal Cannula 3.00 06/19/16 20:25 98 Nasal Cannula 2.00 06/19/16 20:00 100.6 06/19/16 19:45 100.6 95 16 127/70 99 Nasal Cannula 2.00 06/19/16 16:05 99.1 97 20 135/67 97 Nasal Cannula 2.00 06/19/16 15:20 96 Nasal Cannula 2.00 06/19/16 12:00 99.1 103 15 137/83 98 Nasal Cannula 3.00 06/19/16 10:58 98 Nasal Cannula 3.00 I & O 06/20/16 07:00 Intake Total 3160 ml Output Total 2850 ml Balance 310 ml Capillary Refill : Less Than 3 Seconds General Appearance: No Apparent Distress WD/WN Extremity: Normal Capillary Refill Normal Inspection Normal Range of Motion Non Tender No Calf Tenderness No Pedal Edema Other comments Dressing dry clean and intact with no drainage. Results Lab Laboratory Tests 06/20/16 06:31: Alanine Aminotransferase (ALT/SGPT) 17, Albumin 3.4, Alkaline Phosphatase 75, Anion Gap 8, Aspartate Amino Transf (AST/SGOT) 21, BUN/Creatinine Ratio 15, Basophils # (Auto) 0.0, Basophils (%) (Auto) 0, Blood Urea Nitrogen 10, Calcium Level 8.8, Carbon Dioxide Level 26, Chloride Level 100, Creatinine 0.67, Eosinophils # (Auto) 0.3, Eosinophils (%) (Auto) 3, Estimat Glomerular Filtration Rate > 60, Glucose Level 118H, Hematocrit 34L, Hemoglobin 11.4L, Lymphocytes # (Auto) 1.2, Lymphocytes (%) (Auto) 10L, Mean Corpuscular Hemoglobin 31, Mean Corpuscular Hemoglobin Concent 33, Mean Corpuscular Volume 93, Mean Platelet Volume 9.6, Monocytes # (Auto) 1.4H, Monocytes (%) (Auto) 11, Neutrophils # (Auto) 9.2H, Neutrophils (%) (Auto) 76H, Platelet Count 162, Potassium Level 3.9, Red Blood Count 3.66L, Red Cell Distribution Width 12.8, Sodium Level 134L, Total Bilirubin 1.0, Total Protein 5.8L, White Blood Count 12.2H Microbiology 06/18/16 Blood Culture - Preliminary, Resulted No growth 06/17/16 MRSA Screen - Final, Complete MRSA not isolated Assessment/Plan Assessment/Plan Assess & Plan/Chief Complaint Femoral neck fracture with hemiarthroplasty with bipolar Patient doing much better today and may go to SNU tomorrow. Diagnosis/Problems: Clinical Quality Measures DVT/VTE Risk/Contraindication: Risk Factor Score Per Nursin RFS Level Per Nursing on Admit: 4+=Very High Contraindications-Pharm: Other *list below* Other: surgery IRA MILLER Jun 20, 2016 10:27
--- NOTE | 2016-06-20 10:55 | Progress Note-Hospitalist ---
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 Pt has requested breathing treatments. Plan: CXR Blood Cx MAT protocol Scribed by Ubaldo Garcia under the direct supervision of Dr. Valentin. Date Seen 06/20/16 Subjective/Events-last exam she reports she's feeling better and voices no complaints of than right hip discomfort with movement. She denies chest pain cough shortness of breath. She denies increased urinary frequency or dysuria, denies abdominal pain. She had had some postoperative fever but had not felt unwell with it and had had no associated chills. Objective Exam Vital Signs Vital Sign - Last 12Hours 06/17/16 06/18/16 06/18/16 16:45 09:00 10:28 Temp 99.1 Pulse 87 Resp 16 B/P 135/76 Pulse Ox 94 O2 Delivery Room Air O2 Flow Rate 3.00 FiO2 1 Capillary Refill : Less Than 3 Seconds General Appearance: No Apparent Distress Respiratory: Chest Non Tender Lungs Clear Normal Breath Sounds No Accessory Muscle Use No Respiratory Distress Cardiovascular: Regular Rate, Rhythm No Edema No Gallop No JVD No Murmur Normal Peripheral Pulses Gastrointestinal: Normal Bowel Sounds No Organomegaly No Pulsatile Mass Non Tender Soft Extremity: No Pedal Edema Neurologic/Psychiatric: Alert Oriented x3 Comments Laboratory Tests 06/20/16 06:31 Results/Procedures Lab Laboratory Tests 06/20/16 06:31 Assessment/Plan Assessment and Plan Assess & Plan/Chief Complaint 1. Status post right hip replacement complicated by some postoperative fever. The fact the patient's blood sugar is not become elevated and that she has not felt unwell suggest we may not be dealing with an infectious etiology. Her white count is coming down as well. I did not see a UA so will obtain one. Chest x-ray reveals no acute infiltrates and her physical examination of than usual postop hip swelling is unremarkable. Diagnosis/Problems Diagnosis/Problems (1) Hip fracture, right Status: Acute Qualifiers: Qualified Code: S72.001D - Fracture of unspecified part of neck of right femur, subsequent encounter for closed fracture with routine healing WILLIAM BALDWIN MD Jun 20, 2016 10:55
[2016-06-20] MEDS: oxyCODONE/APAP 5/325MG (PERCOCET 5) TABLET PO PRN (10:59)
[2016-06-20 11:09] LABS: BILIRUBIN,URINE NEGATIVE (NEGATIVE); KETONES,URINE NEGATIVE (NEGATIVE); LEUKOCYTE ESTERASE ,URINE 1+ (NEGATIVE); NITRITE,URINE NEGATIVE (NEGATIVE); PH,URINE 7 (5-9); PROTEIN,URINE NEGATIVE (NEGATIVE); UROBILINOGEN,URINE NORMAL (NORMAL)
[2016-06-20 11:16] LABS: SQUAMOUS EPITHELIAL CELL,UR 0-2 /HPF; WBC,URINE 0-2 /HPF
[2016-06-20 12:15] VITALS: BP 132/62
[2016-06-20] MEDS ORDERED: SERTRALINE 50 MG (ZOLOFT) TABLET PO NR (12:58)
[2016-06-20 16:38] VITALS: BP 144/65
[2016-06-20 20:39] VITALS: BP 146/61
[2016-06-21] VITALS: BP 134/58
[2016-06-21] MEDS: HYDROcodone/APAP 5 MG/325 MG (LORTAB) TAB PO PRN ×2 (04:52→09:25)
[2016-06-21] MEDS: RT-ALBUTEROL SULF 2.5 MG/3 ML PRE-MIX VIAL INH SCH (07:14)
[2016-06-21 08:00] VITALS: BP 159/69
[2016-06-21] MEDS: BISACODYL 10 MG SUPP (DULCOLAX) PR SCH (09:00)
[2016-06-21] MEDS: POLYETHYLENE GLYCOL 17 GM (MIRALAX) PACK PO SCH (09:00)
[2016-06-21] MEDS: DOCUSATE SODIUM 100 MG (COLACE) CAP PO SCH (09:00)
--- NOTE | 2016-06-21 09:13 | Physical Therapy Daily Note ---
PT Daily Note-Current Subjective Pt. up in chair and agrees to PT. Pt. has no c/o pain prior to session, post session pt. requests a pain pill. Mental Status Patient Orientation: Normal For Age Transfers Functional [place] Measure 0=Not Assessed/NA 4=Minimal Assistance 1=Total Assistance 5=Supervision or Setup 2=Maximal Assistance 6=Modified [place] 3=Moderate Assistance 7=Complete IndependenceIRFPAI Quality Coding Scale 6 Independent with activity with or without an assistive device 5 Patient requires set up or clean up by helper. Patient completes activity by themselves 4 Supervision or touching assist (CGA). [place] provide cues , steadying assist 3 The helper provides less than half the effort to complete the activity 2 The helper provides more than half the effort to complete the activity 1 Dependent. The helper does all the effort to complete an activity 7 Patient refused to complete or attempt activity 9 The patient did not perform the activity before the current illness or injury 88 Not attempted due to Medical conditions or safety concerns Transfers (B, C, W/C) (FIM): 4 Sit to/from Stand: 4 toilet transfer: min A; dependent for pericare Weight Bearing Weight Bearing Restriction: Weight Bearing/Tolerated Location Restriction: R LE Gait Training Gait (FIM): 1 Distance (FIM): 1=up to 49 ft Distance: 20 ft Gait Level of Assist: 4 Gait Persons Needed: 1 Gait Assistive Device: FWW frequent cues needed for gait sequence and therapist assist to advance R LE Exercises Seated Therapy Exercises: Ankle pumps, Long arc quads Treatments gait, toileting Assessment Current Status: Good Progress Able to increase ambulation distance today but pt. continues to need assistance to advance R LE. Pt. is incontinent of bowel during ambulation, dependent for pericare. Pt. returned to bedside chair post session with call light and all needs met, nurse notified of pt. request for pain meds. Overall gradual improvement in transfers and gait this date. PT Cash Applications Specialist Goals Cash Applications Specialist Goals PT Mcfp Goals Time Frame: Jun 24, 2016 Transfers (B,C,W/C) (FIM): 5 Gait (FIM): 2 Gait distance (FIM): 1=up to 49 ft Gait Assistive Device: FWW PT Plan Treatment/Plan Treatment Plan: Continue Plan of Care Treatment Plan: Bed Mobility, Education, Functional Activity Anup, Functional Strength, Gait, Safety, Therapeutic Exercise, Transfers Treatment Duration: Jun 24, 2016 Visits Per Week: 11-12 Time/GCodes Time In: 835 Time Out: 900 Total Billed Treatment Time: 25 Total Billed Treatment 1, GT 15', FA 10' KIANNA CUELLAR PT Jun 21, 2016 09:13
[2016-06-21] MEDS: KCL 20 MEQ TAB (K-DUR) PO SCH (09:24)
[2016-06-21] MEDS: ENOXAPARIN 40 MG/0.4 ML (LOVENOX) SYR SC SCH (09:24)
[2016-06-21] MEDS ORDERED: HYDR-3812 PO (10:41)
--- NOTE | 2016-06-21 10:47 | Discharge Summary-Hospitalist ---
Diagnosis/Chief Complaint Date of Admission Jun 17, 2016 at 16:49 Date of Discharge Discharge Date: Jun 21, 2016 Admission Diagnosis acute right hip fracture Hypertension Coarse breath sounds in the bases with history of pneumonia and atelectasis of the left lower lobe Anxiety Discharge Diagnosis 1. Status post right hip replacement complicated by some postoperative fever. The fact the patient's blood sugar is not become elevated and that she has not felt unwell suggest we may not be dealing with an infectious etiology. Her white count is coming down as well. I did not see a UA so will obtain one. Chest x-ray reveals no acute infiltrates and her physical examination of than usual postop hip swelling is unremarkable. (1) Hip fracture, right Status: Acute Reason Hospital Visit/Course patient apparently fell at home suffering a right subcapital hip fracture. Dr. Couch was consulted and the patient underwent right bipolar hip arthroplasty without significant complication. She had symptoms compatible with bronchitis with a chest x-ray revealing no acute abnormalities. She had some low-grade temperature postoperatively that cleared. Other than soreness at the surgery site she voices no other complaints on the day of her discharge. She was transferred to acute rehabilitation to continue postoperative rehabilitation. Previous home medications were continued in addition to when necessary 5/325 hydrocodone. Discharge Summary Discharge Physical Examination Allergies: Coded Allergies: No Known Drug Allergies (Verified , 02/19/15) Vitals & I&Os Vital Signs Date Time Temp Pulse Resp B/P Pulse Ox O2 Delivery O2 Flow Rate FiO2 06/21/16 08:00 96.2 90 22 159/69 93 Nasal Cannula 2.00 06/18/16 11:38 1 Hospital Course Labs (last 24 hrs) Laboratory Tests 06/20/16 10:50: Urine Bacteria NEGATIVE, Urine Bilirubin NEGATIVE, Urine Casts NONE, Urine Clarity CLEAR, Urine Color YELLOW, Urine Crystals NONE, Urine Culture Indicated NO, Urine Glucose (UA) NEGATIVE, Urine Ketones NEGATIVE, Urine Leukocyte Esterase 1+H, Urine Mucus NEGATIVE, Urine Nitrite NEGATIVE, Urine Protein NEGATIVE, Urine RBC RARE, Urine RBC (Auto) 1+H, Urine Specific [place] 1.005L, Urine Squamous Epithelial Cells 0-2, Urine Urobilinogen NORMAL, Urine WBC 0-2, Urine pH 7 06/21/16 04:42: Hematocrit 33L, Hemoglobin 11.1L Microbiology 06/18/16 Blood Culture - Preliminary, Resulted No growth 06/17/16 MRSA Screen - Final, Complete MRSA not isolated Pending Labs Laboratory Tests 06/21/16 04:42: Hematocrit 33, Hemoglobin 11.1 Discharge Home Medications: Active Scripts Active Hydrocodon -Acetaminophen 5-325 (Hydrocodone/Acetaminophen) 1 Each Tablet 1 Each PO Q4H PRN Reported Cyanocobalamin Injection (Cyanocobalamin) 1,000 Mcg/Ml Inj 1,000 Mcg IJ MONTHLY Amitriptyline HCl 10 Mg Tablet 10 Mg PO HS Fish Oil 1,000 mg Softgel ([place]-3/Dha/Epa/Fish Oil) 1 Each Capsule 1,000 Mg PO DAILY Losartan Potassium 50 Mg Tablet 50 Mg PO DAILY Sertraline HCl 50 Mg Tablet 25 Mg PO DAILY TAKES 1/2 OF A (50 MG) TABLET Vitamin D-3 (Cholecalciferol (Vitamin D3)) 2,000 Unit Capsule 2,000 Unit PO DAILY Aspirin EC (Aspirin) 81 Mg Tablet.dr 81 Mg PO HS Co Q-10 (Ubidecarenone) 400 Mg Capsule 400 Mg PO DAILY Glucosamine & Chondroitin Cap (Glucosa [place] 2Kcl/Chondroitin [place]) 1 Each Capsule 1 Cap PO BID Multiple Vitamin (Multivitamin with Minerals) 1 Each Tablet 1 Tab PO DAILY Zocor (Simvastatin) 20 Mg Tablet 20 Mg PO HS Dicyclomine HCl 20 Mg Tablet 20 Mg PO TID PRN Instructions to patient/family Please see electonic discharge instructions given to patient. Clinical Quality Measures DVT/VTE Risk/Contraindication: Risk Factor Score Per Nursin RFS Level Per Nursing on Admit: 4+=Very High Contraindications-Pharm: Other *list below* Other: surgery Copy Copies To 2: SHARLENE RUDOLPH DO Problem Qualifiers (1) Hip fracture, right: Encounter type: subsequent encounter Fracture type: closed Fracture healing : with routine healing Qualified Code: S72.001D - Fracture of unspecified part of neck of right femur, subsequent encounter for closed fracture with routine healing WILLIAM BALDWIN MD Jun 21, 2016 10:47
--- NOTE | 2016-06-21 13:03 | Progress Note (SOAP) ---
Subjective Subjective/Events-last exam Hospital day #4/Postop day #3 Bipolar hemiarthroplasty right hip She is without complaints. Her pain is controlled. Her anxiety is better. She asked about going on Zoloft for anxiety which is what she takes at home. She is making good progress with PT. Objective Exam Vital Signs Date Time Temp Pulse Resp B/P Pulse Ox O2 Delivery O2 Flow Rate FiO2 06/21/16 08:00 96.2 90 22 159/69 93 Nasal Cannula 2.00 06/21/16 07:17 94 06/21/16 07:15 94 Room Air 06/21/16 04:00 94 Room Air 06/21/16 00:00 99.5 103 20 134/58 92 Nasal Cannula 2.00 06/20/16 20:39 98.1 94 22 146/61 100 Nasal Cannula 2.00 06/20/16 20:10 94 Room Air 06/20/16 19:11 93 Room Air 06/20/16 16:38 97.4 108 22 144/65 95 Nasal Cannula 2.00 06/20/16 14:05 95 Nasal Cannula 0.50 I & O 06/21/16 07:00 Intake Total 2830 ml Output Total 3230 ml Balance -400 ml Capillary Refill : Less Than 3 Seconds General Appearance: No Apparent Distress WD/WN Extremity: Normal Capillary Refill Normal Range of Motion Non Tender No Calf Tenderness Other (Right hip incision healing with no drainage noted.) Neurologic/Psychiatric: Oriented x3 No Motor/Sensory Deficits Skin: Normal Color Warm/Dry Results Lab Laboratory Tests 06/21/16 04:42: Hematocrit 33L, Hemoglobin 11.1L Microbiology 06/18/16 Blood Culture - Preliminary, Resulted No growth 06/17/16 MRSA Screen - Final, Complete MRSA not isolated Assessment/Plan Assessment/Plan Assess & Plan/Chief Complaint Right femoral neck fracture, postop hemiarthroplasty-- Doing excellent. Will continue PT. Rehab consult. I told her I would look into the Zoloft for her. Diagnosis/Problems: (1) Hip fracture, right Qualifiers: Qualified Code: S72.001D - Fracture of unspecified part of neck of right femur, subsequent encounter for closed fracture with routine healing Clinical Quality Measures DVT/VTE Risk/Contraindication: Risk Factor Score Per Nursin RFS Level Per Nursing on Admit: 4+=Very High Contraindications-Pharm: Other *list below* Other: surgery KWAME VALENTIN MD Jun 21, 2016 13:03
[2016-06-21 13:05] VITALS: BP 159/69
[2016-06-21] MEDS ORDERED: RT-ALBUTEROL/IPRATROPIUM 3 ML (DUONEB) VIAL INH SCH (15:00)
[2016-07-01] MEDS ORDERED: DICL100G18 TOP (08:54)
[2016-07-01] MEDS ORDERED: HYDR-3812 PO (08:54)
[2016-07-01] MEDS ORDERED: GABA-486 PO (08:54)
== END 2016-06-21 13:30 | DRG 470 ==
LOC: 4TH 16:49
PROVIDERS: ADMIT Internal Medicine; ATTEND Internal Medicine
PROC: 0SRR01A Replacement of Right Hip Joint, Femoral Surface with Metal Synthetic Substitute, Uncemented, Open Approach (ICD-10-PCS; principal; 2016-06-18 14:29)
DX: S72.011A Unspecified intracapsular fracture of right femur, initial encounter for closed fracture (principal); S50.311A Abrasion of right elbow, initial encounter; I10 Essential (primary) hypertension; M19.90 Unspecified osteoarthritis, unspecified site; F41.9 Anxiety disorder, unspecified; E87.6 Hypokalemia; E83.51 Hypocalcemia; E78.00 Pure hypercholesterolemia, unspecified; E87.1 Hypo-osmolality and hyponatremia; W20.8XXA Other cause of strike by thrown, projected or falling object, initial encounter; J98.11 Atelectasis; W19.XXXA Unspecified fall, initial encounter; Y92.29 Other specified public building as the place of occurrence of the external cause
CPT/HCPCS: 36415; 71020; 72170; 73502; 73562; 73700; 80053; 81000; 83605; 85014; 85018; 85025; 87040; 87081; 94640; 94664; 94760

== ENCOUNTER → 2016-06-17 | Outpatient (CLI) | payer MEDICARE ==
[~2016-06-17] MED LIST: AMIT10TA6 PO; ASPI-983 PO; CHOL20002 PO; CNC1KV IJ; DICL100G18 TOP; DICY20TA10 PO; DOCU-143 PO; GABA-486 PO; GLUC1CAP37 PO; HYDR-3812 PO; HYOS0.1283 SL; LOSA100T28 PO; LOSA50TA36 PO; MULT-593 PO; OMEG-160 PO; SERT25TA PO; SERT50TA9 PO; SIMV20TA PO; UBID400C6 PO
--- OUTSIDE RECORDS SUMMARY | 2016-06-17 14:25 | XMS REPORT | Continuity of Care Document ---
Author Author [facility] Organization [facility] Address Unknown Phone Unavailable Care Team Providers Care Production Line Technician Name Role Phone SHARLENE RUDOLPH DO PCP Insurance Providers Payer Name Policy Number Subscriber Name Relationship W[employer] Medicare [id number] Charla Holland 20 Self / Same As Patient Advance Directives Directive Response Recorded Date/Time Advance Directives No 02/19/15 8:21am Health Care Power of Chemist Instrumentation No 02/19/15 8:21am Organ Donor Yes 02/19/15 8:21am Problems No problem information available. Medications Current Home Medications Medication Dose Units Route Directions Days/Qty Instructions Start Date Sertraline Hcl 25 Mg 25 Mg Oral Daily 02/19/15 Dicyclomine Hcl 20 Mg 20 Mg Oral Three Times A Day 02/19/15 Simvastatin 20 Mg 20 Mg Oral Daily 02/19/15 Losartan Potassium 100 Mg 100 Mg Oral Daily 02/19/15 Multivitamin With Minerals 1 Each 1 Each Oral Daily 02/19/15 Glucosa Porter 2KCL/Chondroitin Porter 1 Each 1 Each Oral Twice A Day Ubidecarenone 400 Mg 400 Mg Oral Daily 02/19/15 Aspirin 81 Mg 81 Mg Oral Daily 02/19/15 Cholecalciferol (Vitamin D3) 2,000 Unit 2,000 Unit Oral Daily Hyoscyamine Sulfate 0.125 Mg 0.125 Mg Sublingual Every 4HRS as needed for Cramps 02/19/15 Docusate Sodium 100 Mg 100 Mg Oral Bedtime 02/19/15 Social History Social History Problem Response Recorded Date/Time Recent Foreign Travel No 02/06/2016 7:24am Do you dip or chew tobacco? No 02/19/2015 8:26am Hospital Discharge Instructions Current inpatient/outpatient. Discharge instructions are currently unavailable. Plan of Care Prescriptions Functional Status No functional status results. Allergies, Adverse Reactions, Alerts No known allergies. Immunizations No immunization records. Vital Signs No known vital signs results. Results Laboratory Results Test Name Result Units Flags Reference Collection Date/Time Result Date/ Time Comments White Blood Count 9.5 10^3/uL 4.3-11.0 11/19/2015 11:11/19/2015 11 :25am Red Blood Count 4.55 10^6/uL 4.35-5.85 11/19/2015 11:11/19/2015 11 :25am Hemoglobin 14.2 G/DL 11.5-16.0 11/19/2015 11:11/19/2015 11:25am Hematocrit 42 % 35-52 11/19/2015 11:11/19/2015 11:25am Mean Corpuscular Volume 93 FL 80-99 11/19/2015 11:11/19/2015 11: 25am Mean Corpuscular Hemoglobin 31 PG 25-34 11/19/2015 11:11/19/2015 11:25am Mean Corpuscular Hemoglobin Concent 34 G/DL 32-36 11/19/2015 11: 11:25am Red Cell Distribution Width 13.6 % 10.0-14.5 11/19/2015 11:2015 11:25am Platelet Count 242 10^3/uL 130-400 11/19/2015 11:11/19/2015 11: 25am Mean Platelet Volume 9.6 FL 7.4-10.4 11/19/2015 11:11/19/2015 11: 25am Neutrophils (%) (Auto) 62 % 42-75 11/19/2015 11:11/19/2015 11: 25am Lymphocytes (%) (Auto) 24 % 12-44 11/19/2015 11:11/19/2015 11: 25am Monocytes (%) (Auto) 9 % 0-12 11/19/2015 11:11/19/2015 11:25am Eosinophils (%) (Auto) 3 % 0-10 11/19/2015 11:11/19/2015 11:25am Basophils (%) (Auto) 1 % 0-10 11/19/2015 11:11/19/2015 11:25am Neutrophils # (Auto) 5.9 X 10^3 1.8-7.8 11/19/2015 11:11/19/2015 11:25am Lymphocytes # (Auto) 2.3 X 10^3 1.0-4.0 11/19/2015 11:11/19/2015 11:25am Monocytes # (Auto) 0.8 X 10^3 0.0-1.0 11/19/2015 11:11/19/2015 11: 25am Eosinophils # (Auto) 0.3 10^3/uL 0.0-0.3 11/19/2015 11:11/19/2015 11:25am Basophils # (Auto) 0.1 10^3/uL 0.0-0.1 11/19/2015 11:11/19/2015 11 :25am Sodium Level 142 MMOL/L 135-145 11/19/2015 11:11/19/2015 11:53am Potassium Level 3.8 MMOL/L 3.6-5.0 11/19/2015 11:11/19/2015 11: 53am Chloride Level 104 MMOL/L 98-107 11/19/2015 11:11/19/2015 11:53am Carbon Dioxide Level 31 MMOL/L 21-11/19/2015 11:11/19/2015 11: 53am Anion Gap 7 MMOL/L -14 11/19/2015 11:11/19/2015 11:53am Blood Urea Nitrogen 11 MG/DL -11/19/2015 11:11/19/2015 11: 53am Creatinine 0.75 MG/DL 0.60-1.30 11/19/2015 11:11/19/2015 11:53am BUN/Creatinine Ratio 15 11/19/2015 11:11/19/2015 11:53am Estimat Glomerular Filtration Rate > 60 11/19/2015 11:24am 2015 11:53am GFR INTERPRETIVE DATA UNITS FOR ESTIMATED GFR (eGFR): mL/min/1.73 M2 REFERENCE RANGE FOR ESTIMATED GFR (eGFR) eGFR NORMAL eGFR >60 MODERATELY DECREASED eGFR 30-59 SEVERLY DECREASED eGFR 15-29 KIDNEY FAILURE <15 (OR DIALYSIS) Glucose Level 94 MG/DL 70-105 11/19/2015 11:24am 11/19/2015 11:53am Calcium Level 9.8 MG/DL 8.5-10.1 11/19/2015 11:24am 11/19/2015 11:53am Total Bilirubin 0.5 MG/DL 0.1-1.0 11/19/2015 11:24am 11/19/2015 11: 53am Alkaline Phosphatase 94 U/L 40-136 11/19/2015 11:24am 11/19/2015 11: 53am Aspartate Amino Transf (AST/SGOT) 15 U/L 5-34 11/19/2015 11:24am 2015 11:53am Alanine Aminotransferase (ALT/SGPT) 14 U/L 0-55 11/19/2015 11:24am 11:53am Total Protein 6.7 G/DL 6.4-8.2 11/19/2015 11:24am 11/19/2015 11:53am Albumin 4.3 G/DL 3.2-4.5 11/19/2015 11:24am 11/19/2015 11:53am Procedures No known history of procedures. Encounters Encounter Location Arrival/Admit Date Discharge/Depart Date Attending Provider Registered Clinic [facility] 02/06/16 7:25am BIJU ROJAS MD Registered Clinic [facility] 01/28/16 10:29am BIJU ROJAS MD Discharged Recurring [facility] 11/26/15 10:42am 11:59pm BIJU ROJAS MD
--- NOTE | 2016-06-17 15:07 | Diagnostic Imaging Report ---
EXAMINATION: Three views of the right knee. INDICATION: Injury. FINDINGS: No fracture, dislocation, or radiopaque foreign body. There are prominent lateral compartment osteophytes and osteophyte formation in the patellofemoral compartment without significant joint space loss identified. There is no radiopaque foreign body. No suprapatellar effusion seen. IMPRESSION: Ltld-fs-ymabrawr osteoarthritic changes, mostly involving the lateral and patellofemoral compartments. Dictated by: Dictated on workstation # [id number]
--- NOTE | 2016-06-17 15:22 | Diagnostic Imaging Report ---
EXAMINATION: AP view of the pelvis. INDICATION: Injury. The right hip pain. FINDINGS: There is a subtle sclerotic line seen at the subcapital right femoral neck. A nondisplaced fracture is not ruled out. There is no dislocation or radiopaque foreign body. The hip joints demonstrate mild degenerative changes, bilaterally. There is lower lumbar spine fusion hardware seen. IMPRESSION: Indeterminate sclerotic line of the right femoral neck. A nondisplaced fracture is not ruled out. Evaluation with CT is recommended. Findings were discussed with with Ms. Hammonds, the nurse practitioner taking care of the patient, by Dr. Howard at time of dictation. Dictated by: Dictated on workstation # [id number]
--- NOTE | 2016-06-17 15:22 | Diagnostic Imaging Report ---
EXAMINATION: AP and frog-leg lateral views of the right hip. INDICATION: Right hip pain after injury. FINDINGS: There is a subtle sclerotic line seen at the femoral neck, indeterminate with no displaced fracture seen. No dislocation or radiopaque foreign body. IMPRESSION: Indeterminate sclerotic line at the subcapital femoral neck. A nondisplaced fracture is not ruled out. CT evaluation is suggested. Findings were called and discussed with Ms. Hammonds, the nurse practitioner taking care of the patient, by Dr. Osuna at the time of dictation. Dictated by: Dictated on workstation # [id number]
--- NOTE | 2016-06-17 16:32 | Diagnostic Imaging Report ---
PROCEDURE: CT right lower extremity without contrast. TECHNIQUE: An axially acquired CT was obtained through the right lower extremity without intravenous contrast. Coronal and sagittal reformations were also performed. INDICATION: Injury. Right hip pain. FINDINGS: There is a minimally impacted nondisplaced subcapital right femoral neck fracture. There is no dislocation. There are mild degenerative changes. The SI joint is normally aligned with minimal degenerative sclerosis. Minimal degenerative sclerosis is seen also in the symphysis pubis. There is no significant soft tissue abnormality or large hematoma identified. IMPRESSION: Minimally impacted nondisplaced subcapital right femoral neck fracture. The findings were called to Dr. Justus Hammonds by Dr. Osuna at the time of dictation. Dictated by: Dictated on workstation # [id number]
== END ==
LOC: RAD 14:17
PROVIDERS: ATTEND Internal Medicine
DX: S72.011A Unspecified intracapsular fracture of right femur, initial encounter for closed fracture (principal); S89.91XA Unspecified injury of right lower leg, initial encounter; W19.XXXA Unspecified fall, initial encounter; Y92.248 Other public administrative building as the place of occurrence of the external cause; Y99.8 Other external cause status
CPT/HCPCS: 72170; 73502; 73562; 73700

== ENCOUNTER → 2016-06-17 | Outpatient (CLI) | payer MEDICARE ==
--- OUTSIDE RECORDS SUMMARY | 2016-06-17 15:45 | XMS REPORT | Continuity of Care Document ---
Author Author [facility] Organization [facility] Address Unknown Phone Unavailable Care Team Providers Care Automobile Parker Name Role Phone SHARLENE RUDOLPH DO PCP Insurance Providers Payer Name Policy Number Subscriber Name Relationship [employer] [id number] Charla Holland 20 Self / Same As Patient Advance Directives Directive Response Recorded Date/Time Advance Directives No 02/19/15 8:21am Health Care Power of Paper Carrier No 02/19/15 8:21am Organ Donor Yes 02/19/15 [...] Discharge/Depart Date Attending Provider Registered Clinic [facility] 02/06/16 7:25am BIJU ROJAS MD Registered Clinic [facility] 01/28/16 10:29am BIJU ROJAS MD Discharged Recurring [facility] 11/26/15 10:42am 11:59pm BIJU ROAJS MD
== END ==
LOC: RAD 15:40
PROVIDERS: ATTEND Nurse Practitioner Family
DX: R93.7 Abnormal findings on diagnostic imaging of other parts of musculoskeletal system (principal)

== ENCOUNTER 2016-06-21 13:55 | Inpatient (IN) | payer OTHER, MEDICARE ==
[~2016-06-21] VITALS: Ht 157.5 cm; Wt 65.1 kg
[2016-06-21 13:45] VITALS: BP 126/65
[~2016-06-21 13:55] MED LIST changes: +AMIT10TA6 PO; +CNC1KV IJ; +HYDR-3812 PO; +LOSA50TA36 PO; +OMEG-160 PO; +SERT50TA9 PO
--- OUTSIDE RECORDS SUMMARY | 2016-06-21 14:11 | XMS REPORT | Continuity of Care Document ---
Author Author [facility] Organization [facility] Address Unknown Phone Unavailable Care Team Providers Care Naphthalene Operator Name Role Phone SHARLENE RUDOLPH DO PCP Insurance Providers Payer Name Policy Number Subscriber Name Relationship [employer] [id number] Charla Holland 18 Self / Same As Patient Advance Directives Directive Response Recorded Date/Time Advance Directives No 02/19/15 8:21am Health Care Power of Instructor Modeling No 02/19/15 8:21am Organ Donor Yes 02/19/15 [...] Discharge/Depart Date Attending Provider Registered Clinic [facility] 02/06/16 7:25am BIJU ROJAS MD Registered Clinic [facility] 01/28/16 10:29am BIJU ROJAS MD Discharged Recurring [facility] 11/26/15 10:42am 11:59pm BIJU ROJAS MD
[2016-06-21] MEDS ORDERED: DICYCLOMINE 10 MG (BENTYL) CAP PO PRN (14:30)
[2016-06-21] MEDS: HYDROcodone/APAP 5 MG/325 MG (LORTAB) TAB PO PRN ×2 (15:50→20:31)
[2016-06-21 18:00] VITALS: BP 151/67
[2016-06-21] MEDS: DOCUSATE SODIUM 100 MG (COLACE) CAP PO SCH (20:28)
[2016-06-21] MEDS: SIMvastatin 20 MG (ZOCOR) TAB PO SCH (20:28)
[2016-06-21] MEDS: AMITRIPTYLINE 10 MG (ELAVIL) TAB PO SCH (20:28)
[2016-06-22] MEDS: HYDROcodone/APAP 5 MG/325 MG (LORTAB) TAB PO PRN ×4 (03:41→17:12)
[2016-06-22 06:00] VITALS: BP 155/79
[2016-06-22] MEDS: MULTIVIT W/MINERALS TAB (THERAGRAN M) PO SCH (06:45)
[2016-06-22] MEDS: VITAMIN D3 1,000 UNITS (CHOLECALCIFEROL) TABLET PO SCH (08:46)
[2016-06-22] MEDS: ENOXAPARIN 40 MG/0.4 ML (LOVENOX) SYR SC SCH (08:46)
[2016-06-22] MEDS: LOSARTAN 50 MG (COZAAR) TAB PO SCH (08:46)
[2016-06-22] MEDS: OMEGA 3 (FISH OIL) 1000 MG CAP PO SCH (08:47)
[2016-06-22] MEDS: ASPIRIN E.C. 81 MG (ECOTRIN) TAB PO SCH (08:47)
[2016-06-22] MEDS: SERTRALINE 50 MG (ZOLOFT) TABLET PO SCH (08:47)
[2016-06-22] MEDS: DOCUSATE SODIUM 100 MG (COLACE) CAP PO SCH ×2 (08:47→19:39)
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
--- NOTE | 2016-06-22 10:24 | ST Cognitive Linguistic Eval ---
Speech Evaluation-General Medical Diagnosis Right Hip Fracture Onset Date: Jun 21, 2016 Therapy Diagnosis Therapy Diagnosis: Questionable Cognitive Impairment Precautions Precautions/Isolations: Fall Prevention, Standard Precautions Referral Referring Physician: Dr. Balta Horner Reason for Referral: Evaluation/Treatment Cognitive Screen Medical History Pertinent Medical History: Arthritis, HTN, OA Reviewed History: Yes Speech PLF-Current Status Prior Level of Function The patient denied cognitive linguistic challenges prior to admission. The patient kept a notebook with her and wrote reminders throughout the assessment. Subjective The patient was recently admitted to [facility] with a diagnosis of a right hip fracture. The patient greeted the clinician appropriately and agreed to participate in the cognitive assessment on this date. Language Eval: Auditory Comprehends Simple Yes/No Ques: Functional Indent/Objects Multiple [place]: Functional Ident/Pics in Multiple [place]: Functional Follows 1-Step Commands: Functional Follows General Conversations: Functional Language Eval: Verbal Language Completes Spontaneous Greeting: Functional Produces Auto, Serial Info: Functional Imitates Simple Words/Phrases: Functional Word Finding: Functional Requests Basic Needs: Functional States Basic Personal Info: Functional Expresses Complex Ideas: Functional Cognitive Patient Orientation The patient was oriented to location, month, day of week, year, and date independently. Objective Cognitive Domain Attention: WNL Memory: WNL Problem Solving: Functional Objective Impression The patient demonstrated cognitive linguistic skills grossly within normal limits for completion of ADL's. Communication/Social Cognition Comprehension: 6 Expression: 6 Social Interaction: 6 Problem Solvin Memory: 6 Speech Patient Assess Expression of Ideas/Wants: Expression (4) Understanding [place] Content: Understands (4) Brief Interview-Mental Status: Yes Repetition of Three Words: Three (3) Temporal Orientation: Year: Correct (3) Temporal Orientation: Day: Correct (1) Recall : Wear: Yes, no cue required (2) Recall : Color: Yes, no cue required (2) Recall : Bed: Yes, no cue required (2) Speech-Plan Treatment Plan Speech Therapy Treatment Plan: Discontinue ST (Eval, only.) Rehab Potential: Good Safety Risks/Education Teaching Recipient: Patient Teaching Methods: Discussion Response to Teaching: Verbalize Understanding Education Topics Provided: Plan of Care Time Speech Therapy Time In: 08:45 Speech Therapy Time Out: 09:00 Total Billed Time: 15 Billed Treatment Time 1, JOSUE BELLO Jun 22, 2016 10:24
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
--- NOTE | 2016-06-22 12:43 | Occupational Therapy Eval ---
OT Evaluation-General/PLF Medical Diagnosis Admission Date Jun 21, 2016 at 13:55 Medical Diagnosis: Right Hip Fracture Onset Date: Jun 21, 2016 Therapy Diagnosis Therapy Diagnosis: decreased self care Height/Weight Height (Feet): 5 Height (Inches): 2.00 Weight (Pounds): 143 Weight (Ounces): 8.0 Precautions Precautions/Isolations: Fall Prevention, Standard Precautions Comments Hip precautions Weight Bear Status Weight Bearing Restriction: Weight Bearing/Tolerated Location Restriction: R LE Referral Physician: Evens Medical History Pertinent Medical History: Arthritis, HTN, OA Additional Medical History Anxiety, 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 Had bipolar hemiarthroplasty on 05-23 Reviewed History: Yes Social History Home: Apartment Current Living Status: Alone Entry Into Home: Level Entry ADL-Prior Level of Function ADL PLOF Comments Pt states she lives in [facility] [address]ments. Does her own cooking and cleaning. Drives. Does not use any assistive devices for mobility. DME/Equipment: Bath Chair, Grab Bars, Shower Hose Box Fabricator, Tub/Shower Drive Self: Yes OT Current Status Subjective Pt sitting in chair, agrees to treatment. Pt reports 7/10 pain in right hip. Mental Status/Objective Patient Orientation: Person, Place, Situation Current Glasses/Contacts: Yes (reading) Hearing Aids: No Dentures/Partials: Yes Hand Dominance: Right Upper Extremity ROM Grossly WFL Upper Extremity Coordination Intact Upper Extremity Strength Grossly 4/5 ADL-Treatment ADL-Current Pt sit to stand and transfer to [facility] with FWW, increased time for mobility. Pt requires assist for toileting hygiene and clothing management. Pt requests shower this morning. Transfer to walk in shower with bench with minimal assistance and cues for safety using grab bars. Pt able to bathe upper body with set up. Stood with minimal assistance for balance while washing buttocks and radha area. Pt able to wash bilateral upper legs, but unable to wash lower legs/feet without adaptive equipment. Pt donned button up shirt with set up. Pt requires assist to start pants over feet. Sit to stand with minimal assistance for pant hike. Assist required to pull pants up over hips. Pt has decreased balance during task. Pt unable to don socks without adaptive equipment, requires assist for task. Pt combed hair after set up. Pt states she has already cleaned dentures and is able to complete task after set up. Pt requests to return to bed after session. Sit to supine with assist for bilateral LE. Pt requires increased time for all ADLs and mobility. Pt in bed with needs met after session. Functional [place] Measure 0=Not Assessed/NA 4=Minimal Assistance 1=Total Assistance 5=Supervision or Setup 2=Maximal Assistance 6=Modified [place] 3=Moderate Assistance 7=Complete IndependenceIRFPAI Quality Coding Scale 6 Independent with activity with or without an assistive device 5 Patient requires set up or clean up by helper. Patient completes activity by themselves 4 Supervision or touching assist (CGA). [place] provide cues , steadying assist 3 The helper provides less than half the effort to complete the activity 2 The helper provides more than half the effort to complete the activity 1 Dependent. The helper does all the effort to complete an activity 7 Patient refused to complete or attempt activity 9 The patient did not perform the activity before the current illness or injury 88 Not attempted due to Medical conditions or safety concerns Eating (FIM): 5 Eating (QC): 5 Grooming (FIM): 5 Oral Hygiene (QC): 5 Bathing (FIM): 3 Bathing Location: L Arm, R Arm, L Upper Leg, R Upper Leg, Chest, Abdomen Shower/Bathe Self (QC): 3 Upper Body Dressing (FIM): 5 Upper Body Dressing (QC): 5 Lower Body Dressing (FIM): 2 Lower Body Dressing (QC): 2 On/Off Footwear (QC): 1 Toileting (FIM): 1 Toileting Hygiene (QC): 1 Toilet/Commode Transfer (FIM): 4 Toilet Transfer (QC): 3 Shower Transfer (FIM): 4 Education OT Patient Education: Rehab process Teaching Recipient: Patient Teaching Methods: Discussion Response to Teaching: Verbalize Understanding OT Short Term Goals Short Term Goals Time Frame: Jun 29, 2016 Bathing(FIM): 4 Lower Body Dressing(FIM): 3 Toileting(FIM): 3 Tub Transfer(FIM): 4 (CGA) Additional Short Term Goals: 1-Demonstrate ADL Tasks, 2-Verbalize Understanding , 3-ImproveStrength/Anup 1=Demonstrate adherence to instructed precautions during ADL tasks. 2=Patient will verbalize/demonstrate understanding of assistive devices/ modifications for ADL. 3=Patient will improve strength/tolerance for activity to enable patient to perform ADL's. OT [facility] Goals [facility] Goals Time Frame: Jul 13, 2016 Eating (FIM): 6 Eating (QC): 6 Oral Hygiene (QC): 6 Grooming(FIM): 6 Bathing(FIM): 5 Shower/Bathe Self (QC): 5 Upper Body Dressing(FIM): 6 Upper Body Dressing (QC): 6 Lower Body Dressing(FIM): 5 Lower Body Dressing (QC): 5 On/Off Footwear (QC): 6 Toileting(FIM): 5 Toileting Hygiene (QC): 5 Toilet/Commode Transfer(FIM): 6 Toilet/Commode Transfer (QC): 6 Shower Transfer(FIM): 5 Additional Goals: 1-Demonstrate ADL Tasks, 2-Verbalize Understanding, 3- ImproveStrength/Anup 1=Demonstrate adherence to instructed precautions during ADL tasks. 2=Patient will verbalize/demonstrate understanding of assistive devices/ modifications for ADL. 3=Patient will improve strength/tolerance for activity to enable patient to perform ADL's. Goals established to increase functional performance and allow safe discharge. OT Education/Plan Problem List/Assessment Assessment: Decreased Activ Tolerance, Decreased Safety Aware, Dependent Transfers, Impaired Self-Care Skills Pt to benefit from skilled OT intervention for ADL training, transfers, strengthening, and adaptive equipment education to maximize level of function and allow safe discharge. Discharge Recommendations Plan/Recommendations: Continue POC Treatment Plan/Plan of Care Treatment,Training & Education: Yes Patient would benefit from OT for education, treatment and training to promote independence in ADL's, mobility, safety and/or upper extremity function for ADL' s. Plan of Care: ADL Retraining, Functional Mobility, Group Exercise/Act as Ind, UE Funct Exercise/Act Treatment Duration: Jul 13, 2016 # of days/week 5-6 Minutes/Day (M-F): 60-90 Minutes/Day (Sat/Porter): PRN Agreement: Yes Rehab Potential: Fair Time/GCodes Start Time: 09:00 Stop Time: 10:30 Total Time Billed (hr/min): 90 Billed Treatment Time 1 visit, EVL(15minutes), ADLx5(75minutes) SHAWN WHITEHEAD OT Jun 22, 2016 12:43
--- NOTE | 2016-06-22 14:06 | Physical Therapy Daily Note ---
PT Daily Note-Current Subjective Agreeable. "Let me show you what I can do!" Mental Status Patient Orientation: Person, Place, Time, Situation Transfers Functional [place] Measure 0=Not Assessed/NA 4=Minimal Assistance 1=Total Assistance 5=Supervision or Setup 2=Maximal Assistance 6=Modified [place] 3=Moderate Assistance 7=Complete IndependenceIRFPAI Quality Coding Scale 6 Independent with activity with or without an assistive device 5 Patient requires set up or clean up by helper. Patient completes activity by themselves 4 Supervision or touching assist (CGA). [place] provide cues , steadying assist 3 The helper provides less than half the effort to complete the activity 2 The helper provides more than half the effort to complete the activity 1 Dependent. The helper does all the effort to complete an activity 7 Patient refused to complete or attempt activity 9 The patient did not perform the activity before the current illness or injury 88 Not attempted due to Medical conditions or safety concerns Pt able to transfer sup to sit EOB with SBA, slowly, but does so without assist. sit to stand x 5 reps with FWW with SB-CGA and skilled cues for hand placement and sequencing. Requires cues to not "plop" into chair when sitting. Weight Bearing Weight Bearing Restriction: Weight Bearing/Tolerated Location Restriction: R LE Gait Training Pt ambulated 40 ft with FWW with CGA and skilled cues for sequencing of steps with walker. Pt tends to walk on her toes on the right and take short steps with the right. Treatments Bed mobility, transfers and functional gait. Pt slow with activity and takes extra time to complete. Assessment Current Status: Good Progress Progressing. PT Short Term Goals Short Term Goals Time Frame: Jun 29, 2016 Gait (FIM): 2 Gait Distance Comment: 50' Gait Level of Assist: 4 Gait Assistive Device: FWW Wheelchair (FIM): 4 Wheelchair Distance: 150' Wheelchair Level of Assist: 4 (cga) PT Recovery Auditor Goals Recovery Auditor Goals PT Recovery Auditor Goals Time Frame: Jul 13, 2016 Transfers (B,C,W/C) (FIM): 5 Sit to Lying (QC): 4 Lying-Sitting on Side/Bed(QC): 4 Sit to Stand (QC): 4 Rollin Roll Left to Right (QC): 4 Chair/Veu-jj-Txtek Xfer(QC): 4 Car Transfer (QC): 4 Does the Patient Walk: Yes Gait (FIM): 5 Distance: 150' Walk 10 feet (QC): 4 Walk 10ft-Uneven Surface(QC): 4 Walk 50ft with 2 Turns (QC): 4 Walk 150 ft (QC): 4 Gait Level of Assist: 5 Gait Assistive Device: FWW Wheelchair (FIM): 6 Distance: 150' Wheel 50 feet with 2 turns (QC: 6 Stairs (FIM): 2 # of Steps: 4 1 Step (curb) (QC): 4 4 Steps (QC): 4 12 Steps (QC): 88 Stairs Level Of Assist: 4 (CGA) Picking up an Object (QC): 88 PT Plan Problem List Problem List: Activity Tolerance, Functional Strength, Safety, Balance, Gait, Transfer, Bed Mobility Treatment/Plan Treatment Plan: Continue Plan of Care Treatment Plan: Bed Mobility, Education, Functional Activity Anup, Functional Strength, Group Therapy, Gait, Safety, Therapeutic Exercise, Transfers Treatment Duration: Jul 13, 2016 Visits Per Week: 10-11 Minutes/Day (M-F): 60-90 Minutes/Day (Sat/Porter): 15-30 Safety Risks/Education Patient Education: Transfer Techniques Teaching Recipient: Patient Teaching Methods: Discussion Response to Teaching: Reinforcement Needed Time/GCodes Time In: 1315 Time Out: 1345 Total Billed Treatment Time: 30 Total Billed Treatment vsiit GT 30 GINI ACEVES PT Jun 22, 2016 14:06
[2016-06-22 18:15] VITALS: BP 128/61
[2016-06-22] MEDS: SIMvastatin 20 MG (ZOCOR) TAB PO SCH (19:38)
[2016-06-22] MEDS: AMITRIPTYLINE 10 MG (ELAVIL) TAB PO SCH (19:39)
[2016-06-22] MEDS: ACETAMINOPHEN 500 MG TAB (TYLENOL) PO PRN (19:41)
[2016-06-22] MEDS: DICLOFENAC 1% GEL 100 GM (VOLTAREN) TUBE TOP SCH (20:23)
[2016-06-23] MEDS: HYDROcodone/APAP 5 MG/325 MG (LORTAB) TAB PO PRN ×4 (00:30→18:37)
[2016-06-23 06:00] VITALS: BP 133/73
[2016-06-23] MEDS: MULTIVIT W/MINERALS TAB (THERAGRAN M) PO SCH (06:01)
--- NOTE | 2016-06-23 08:53 | Progress Note-Hospitalist ---
Progress Note Progress Notes/Assess & Plan Date Seen 06/23/16 Diagonsis/Assessment & Plan Patient doing very well overall Has loose stools after constipation resolved No fever Coarse breath sounds in left lower lobe is still noted but still working on IS and no evidence of pneumonia On fluid restriction so we'll check labs AFVSS, Ple[place], O x 3 RRR, CTAB except coarse BS LLL No edema Laboratory Tests 06/22/16 12:20 Assessment: acute right hip fracture POD # 5 Hypertension Coarse breath sounds in the bases with history of pneumonia and atelectasis of the left lower lobe Anxiety Plan: Check labs in order to entertain discontinuation of fluid restriction due to hyponatremia STEWART RASHEED DO Jun 23, 2016 08:53
[2016-06-23] MEDS: OMEGA 3 (FISH OIL) 1000 MG CAP PO SCH (08:56)
[2016-06-23] MEDS: ENOXAPARIN 40 MG/0.4 ML (LOVENOX) SYR SC SCH (08:56)
[2016-06-23] MEDS: ASPIRIN E.C. 81 MG (ECOTRIN) TAB PO SCH (08:56)
[2016-06-23] MEDS: VITAMIN D3 1,000 UNITS (CHOLECALCIFEROL) TABLET PO SCH (08:57)
[2016-06-23] MEDS: DOCUSATE SODIUM 100 MG (COLACE) CAP PO SCH ×2 (08:57→20:00)
[2016-06-23] MEDS: SERTRALINE 50 MG (ZOLOFT) TABLET PO SCH (08:57)
[2016-06-23] MEDS: LOSARTAN 50 MG (COZAAR) TAB PO SCH (08:57)
[2016-06-23] MEDS: DICLOFENAC 1% GEL 100 GM (VOLTAREN) TUBE TOP SCH ×5 (08:58→20:00)
[2016-06-23 09:41] LABS: BASOPHILS # (AUTO) 0.1 10^3/uL (0.0-0.1); BASOPHILS % (AUTO) 1 % (0-10); EOSINOPHILS # (AUTO) 0.5 10^3/uL (0.0-0.3); EOSINOPHILS % (AUTO) 6 % (0-10); LYMPHOCYTES # (AUTO) 1.6 X 10^3 (1.0-4.0); LYMPHOCYTES % (AUTO) 18 % (12-44); MEAN CORPUSCULAR HEMOGLOBIN 31 PG (25-34); MEAN CORPUSCULAR HGB CONC 33 G/DL (32-36); MEAN CORPUSCULAR VOLUME 95 FL (80-99); MEAN PLATELET VOLUME 9.4 FL (7.4-10.4); MONOCYTES % (AUTO) 11 % (0-12); NEUTROPHILS # (AUTO) 5.8 X 10^3 (1.8-7.8); NEUTROPHILS % (AUTO) 64 % (42-75); PLATELET COUNT 241 10^3/uL (130-400); RED BLOOD COUNT 3.57 10^6/uL (4.35-5.85); RED CELL DISTRIBUTION WIDTH 12.8 % (10.0-14.5); WHITE BLOOD COUNT 9.1 10^3/uL (4.3-11.0)
[2016-06-23 10:13] LABS: ALANINE AMINOTRANSFERASE 37 U/L (0-55); ALBUMIN 3.4 G/DL (3.2-4.5); ANION GAP 11 MMOL/L (5-14); ASPARTATE AMINO TRANSFERASE 25 U/L (5-34); BILIRUBIN,TOTAL 0.7 MG/DL (0.1-1.0); BLOOD UREA NITROGEN 15 MG/DL (7-18); BUN/CREATININE RATIO 20; CALCIUM 8.8 MG/DL (8.5-10.1); CARBON DIOXIDE 25 MMOL/L (21-32); CHLORIDE 101 MMOL/L (98-107); CREATININE SERUM 0.74 MG/DL (0.60-1.30); GFR ESTIMATED > 60; GLUCOSE 90 MG/DL (70-105); POTASSIUM 3.7 MMOL/L (3.6-5.0); SODIUM 137 MMOL/L (135-145); TOTAL PROTEIN 5.9 G/DL (6.4-8.2)
--- NOTE | 2016-06-23 12:06 | Physical Therapy Daily Note ---
PT Daily Note-Current Subjective Pt. c/o she is tired but is willing to participate in Rx. Denies pain a t this time Pain Numeric Pain Scale: 0-No Pain Mental Status Patient Orientation: Normal For Age Transfers Functional [place] Measure 0=Not Assessed/NA 4=Minimal Assistance 1=Total Assistance 5=Supervision or Setup 2=Maximal Assistance 6=Modified [place] 3=Moderate Assistance 7=Complete IndependenceIRFPAI Quality Coding Scale 6 Independent with activity with or without an assistive device 5 Patient requires set up or clean up by helper. Patient completes activity by themselves 4 Supervision or touching assist (CGA). [place] provide cues , steadying assist 3 The helper provides less than half the effort to complete the activity 2 The helper provides more than half the effort to complete the activity 1 Dependent. The helper does all the effort to complete an activity 7 Patient refused to complete or attempt activity 9 The patient did not perform the activity before the current illness or injury 88 Not attempted due to Medical conditions or safety concerns Transfers (B, C, W/C) (FIM): 4 Scootin Rollin Supine to/from Sit: 4 Sit to/from Stand: 5 Bed to/from Chair: 5 Weight Bearing Weight Bearing Restriction: Weight Bearing/Tolerated Location Restriction: R LE Gait Training Does the Patient Walk?: Yes Gait (FIM): 2 Distance (FIM): 2=473-53 ft (50ft,25ft) Gait Level of Assist: 4 Gait Persons Needed: 1 Gait Assistive Device: FWW Exercises Supine Ex: Ankle pumps, Quad Set, Rolling, Glut sets, Heel Slides, Short Arc Quads, Scooting, Straight leg raise (assist), Hip abd/add (assist) Supine Reps: 20 Assessment Current Status: Good Progress fatigued PT Short Term Goals Short Term Goals Time Frame: Jun 29, 2016 Gait (FIM): 2 Gait Distance Comment: 50' Gait Level of Assist: 4 Gait Assistive Device: FWW Wheelchair (FIM): 4 Wheelchair Distance: 150' Wheelchair Level of Assist: 4 (cga) PT [facility] Goals Fpc Goals PT [facility] Goals Time Frame: Jul 13, 2016 Transfers (B,C,W/C) (FIM): 5 Sit to Lying (QC): 4 Lying-Sitting on Side/Bed(QC): 4 Sit to Stand (QC): 4 Rollin Roll Left to Right (QC): 4 Chair/Xsl-tz-Sqprc Xfer(QC): 4 Car Transfer (QC): 4 Does the Patient Walk: Yes Gait (FIM): 5 Distance: 150' Walk 10 feet (QC): 4 Walk 10ft-Uneven Surface(QC): 4 Walk 50ft with 2 Turns (QC): 4 Walk 150 ft (QC): 4 Gait Level of Assist: 5 Gait Assistive Device: FWW Wheelchair (FIM): 6 Distance: 150' Wheel 50 feet with 2 turns (QC: 6 Stairs (FIM): 2 # of Steps: 4 1 Step (curb) (QC): 4 4 Steps (QC): 4 12 Steps (QC): 88 Stairs Level Of Assist: 4 (CGA) Picking up an Object (QC): 88 PT Plan Treatment/Plan Treatment Plan: Continue Plan of Care Treatment Plan: Bed Mobility, Education, Functional Activity Anup, Functional Strength, Group Therapy, Gait, Safety, Therapeutic Exercise, Transfers Treatment Duration: Jul 13, 2016 Visits Per Week: 10-11 Minutes/Day (M-F): 60-90 Minutes/Day (Sat/Porter): 15-30 Safety Risks/Education Patient Education: Gait Training, Transfer Techniques, Issued Written HEP, Correct Positioning, Disease Process, Safety Issues Teaching Recipient: Patient Teaching Methods: Demonstration, Discussion Response to Teaching: Return Demonstration, Reinforcement Needed Time/GCodes Time In: 110 Time Out: 1200 Total Billed Treatment Time: 60 Total Billed Treatment 1,EX25m,FA35m G Codes Necessary: BRITTON Pfeiffer HOSE MAKER Jun 23, 2016 12:06
--- NOTE | 2016-06-23 13:42 | Physical Therapy Daily Note ---
PT Daily Note-Current Subjective Pt. agrees to Rx. States she is fatigued but stats she has learned so much about how to "walk again" Pain Numeric Pain Scale: 0-No Pain Mental Status Patient Orientation: Normal For Age Transfers Functional [place] Measure 0=Not Assessed/NA 4=Minimal Assistance 1=Total Assistance 5=Supervision or Setup 2=Maximal Assistance 6=Modified [place] 3=Moderate Assistance 7=Complete IndependenceIRFPAI Quality Coding Scale 6 Independent with activity with or without an assistive device 5 Patient requires set up or clean up by helper. Patient completes activity by themselves 4 Supervision or touching assist (CGA). [place] provide cues , steadying assist 3 The helper provides less than half the effort to complete the activity 2 The helper provides more than half the effort to complete the activity 1 Dependent. The helper does all the effort to complete an activity 7 Patient refused to complete or attempt activity 9 The patient did not perform the activity before the current illness or injury 88 Not attempted due to Medical conditions or safety concerns sit to stand with cuing and reminders to push from the surface she is sitting on etc. sup to sit with min to CGA RLE Weight Bearing Weight Bearing Restriction: Weight Bearing/Tolerated Location Restriction: R LE Gait Training Does the Patient Walk?: Yes Gait (FIM): 2 Distance (FIM): 7=136-81 ft ([id number]) Gait Level of Assist: 5 Gait Persons Needed: 1 Gait Assistive Device: FWW needs skilled verbal instruction for sequence and heel strike etc. Exercises Seated Therapy Exercises: Ankle pumps, Sit to stand, Long arc quads, Hip abd/ add Seated Reps: 12 Assessment Current Status: Good Progress fatigued, in bed after Rx PT Short Term Goals Short Term Goals Time Frame: Jun 29, 2016 Gait (FIM): 2 Gait Distance Comment: 50' Gait Level of Assist: 4 Gait Assistive Device: FWW Wheelchair (FIM): 4 Wheelchair Distance: 150' Wheelchair Level of Assist: 4 (cga) PT Senior Care Goals Manager [employer] Goals PT Manager [employer] Goals Time Frame: Jul 13, 2016 Transfers (B,C,W/C) (FIM): 5 Sit to Lying (QC): 4 Lying-Sitting on Side/Bed(QC): 4 Sit to Stand (QC): 4 Rollin Roll Left to Right (QC): 4 Chair/Dhj-oa-Syajj Xfer(QC): 4 Car Transfer (QC): 4 Does the Patient Walk: Yes Gait (FIM): 5 Distance: 150' Walk 10 feet (QC): 4 Walk 10ft-Uneven Surface(QC): 4 Walk 50ft with 2 Turns (QC): 4 Walk 150 ft (QC): 4 Gait Level of Assist: 5 Gait Assistive Device: FWW Wheelchair (FIM): 6 Distance: 150' Wheel 50 feet with 2 turns (QC: 6 Stairs (FIM): 2 # of Steps: 4 1 Step (curb) (QC): 4 4 Steps (QC): 4 12 Steps (QC): 88 Stairs Level Of Assist: 4 (CGA) Picking up an Object (QC): 88 PT Plan Treatment/Plan Treatment Plan: Continue Plan of Care Treatment Plan: Bed Mobility, Education, Functional Activity Anup, Functional Strength, Group Therapy, Gait, Safety, Therapeutic Exercise, Transfers Treatment Duration: Jul 13, 2016 Visits Per Week: 10-11 Minutes/Day (M-F): 60-90 Minutes/Day (Sat/Porter): 15-30 Safety Risks/Education Patient Education: Gait Training, Transfer Techniques, Correct Positioning, Disease Process, Safety Issues Teaching Recipient: Patient Teaching Methods: Demonstration, Discussion Response to Teaching: Verbalize Understanding, Return Demonstration, Reinforcement Needed Time/GCodes Time In: 1300 Time Out: 1330 Total Billed Treatment Time: 30 Total Billed Treatment 1,EX12,GT13 G Codes Necessary: BRITTON Pfeiffer ELECTRONICS REPAIR TECHNICIAN Jun 23, 2016 13:42
--- NOTE | 2016-06-23 14:37 | Occupational Ther Daily Note ---
OT Current Status-Daily Note Subjective Pt sitting in chair, agrees to treatment. Pt reports 9/10 right hip pain, RN notified and provided pain medication when it was due. Pt reports decrease in pain to 7/10. Mental Status/Objective Functional [place] Measure 0=Not Assessed/NA 4=Minimal Assistance 1=Total Assistance 5=Supervision or Setup 2=Maximal Assistance 6=Modified [place] 3=Moderate Assistance 7=Complete [place] ADL-Treatment Pt declined bathing today, but requests to get dressed. Pt donned bra and pullover shirt with set up. Instruction provided in use of adaptive equipment for LE dressing. Pt donned pants with minimal assistance to start pants over feet using shearing machine operator. Stood with minimal assistance for balance during pant hike. Pt doffed socks with SBA using dressing stick. Donned socks with SBA and verbal cues using sock aid. Increased time for LE dressing. Transfer to [facility] with minimal assistance. Pt able to pull pants down and complete toileting hygiene, but requires some assist to pull pants back up. Uses FWW for balance and safety. Transfer to w/c with CGA using FWW. Functional [place] Measure 0=Not Assessed/NA 4=Minimal Assistance 1=Total Assistance 5=Supervision or Setup 2=Maximal Assistance 6=Modified [place] 3=Moderate Assistance 7=Complete IndependenceIRFPAI Quality Coding Scale 6 Independent with activity with or without an assistive device 5 Patient requires set up or clean up by helper. Patient completes activity by themselves 4 Supervision or touching assist (CGA). [place] provide cues , steadying assist 3 The helper provides less than half the effort to complete the activity 2 The helper provides more than half the effort to complete the activity 1 Dependent. The helper does all the effort to complete an activity 7 Patient refused to complete or attempt activity 9 The patient did not perform the activity before the current illness or injury 88 Not attempted due to Medical conditions or safety concerns Upper Body (FIM): 5 Lower Body Dressing (FIM): 4 Toileting (FIM): 3 Toilet/Commode Transfer (FIM): 4 Other Treatment Pt performed w/c mobility to therapy gym with increased time. Arm bike x8 minutes to increase overall strength and activity tolerance needed for functional tasks. Pt performed task with minimal resistance and steady pace. No rest breaks needed. Pt completed bilateral UE exercises to increase strength needed for ADLs and transfers. Pt performed shoulder flexion, forward press, biceps curls, and wrist flex/ext x20 reps with dowel brea. Rest breaks between exercises. Graded clothespin activity with bilateral hands to increase inspector machine cut glass/ pinch strength. Putty activity to increase hand strength and coordination. Pt able to remove small beads from putty using bilateral hands. Pt returned to room , sitting in w/c with needs met after session. Education OT Patient Education: Modified ADL techniques Teaching Recipient: Patient Teaching Methods: Demonstration, Discussion Response to Teaching: Verbalize Understanding OT Short Term Goals Short Term Goals Time Frame: Jun 29, 2016 Bathing(FIM): 4 Lower Body Dressing(FIM): 3 Toileting(FIM): 3 Tub Transfer(FIM): 4 (CGA) Additional Short Term Goals: 1-Demonstrate ADL Tasks, 2-Verbalize Understanding , 3-ImproveStrength/Anup 1=Demonstrate adherence to instructed precautions during ADL tasks. 2=Patient will verbalize/demonstrate understanding of assistive devices/ modifications for ADL. 3=Patient will improve strength/tolerance for activity to enable patient to perform ADL's. OT Cath Lab Radiological Technologist Goals Shelter Goals Time Frame: Jul 13, 2016 Eating (FIM): 6 Eating (QC): 6 Oral Hygiene (QC): 6 Grooming(FIM): 6 Bathing(FIM): 5 Shower/Bathe Self (QC): 5 Upper Body Dressing(FIM): 6 Upper Body Dressing (QC): 6 Lower Body Dressing(FIM): 5 Lower Body Dressing (QC): 5 On/Off Footwear (QC): 6 Toileting(FIM): 5 Toileting Hygiene (QC): 5 Toilet/Commode Transfer(FIM): 6 Toilet/Commode Transfer (QC): 6 Shower Transfer(FIM): 5 Additional Goals: 1-Demonstrate ADL Tasks, 2-Verbalize Understanding, 3- ImproveStrength/Anup 1=Demonstrate adherence to instructed precautions during ADL tasks. 2=Patient will verbalize/demonstrate understanding of assistive devices/ modifications for ADL. 3=Patient will improve strength/tolerance for activity to enable patient to perform ADL's. OT Education/Plan Problem List/Assessment Pt to benefit from skilled OT intervention for ADL training, transfers, strengthening, and adaptive equipment education to maximize level of function and allow safe discharge. Discharge Recommendations Plan/Recommendations: Continue POC Treatment Plan/Plan of Care Patient would benefit from OT for education, treatment and training to promote independence in ADL's, mobility, safety and/or upper extremity function for ADL' s. Plan of Care: ADL Retraining, Functional Mobility, Group Exercise/Act as Ind, UE Funct Exercise/Act Treatment Duration: Jul 13, 2016 Minutes/Day (M-F): 60-90 Minutes/Day (Sat/Porter): PRN Agreement: Yes Rehab Potential: Fair Time/GCodes Start Time: 09:30 Stop Time: 11:00 Total Time Billed (hr/min): 90 Billed Treatment Time 1 visit, ADLx3(45minutes), EXx3(45minutes) SHAWN WHITEHEAD OT Jun 23, 2016 14:37
[2016-06-23 18:07] VITALS: BP 145/78
--- NOTE | 2016-06-23 18:17 | PM & R (SOAP) Progress Note ---
Subjective Subjective/Events-last exam Patient was seen in her room this noonhour Appreciate Dr Hendrix notes and current labs Patient min assist for gait Patient feels that Voltaran gel helping with rt knee pain Objective Exam Last Set of Vital Signs Vital Signs Date Time Temp Pulse Resp B/P Pulse Ox O2 Delivery O2 Flow Rate FiO2 06/23/16 09:00 Room Air 06/23/16 06:00 98.3 99 18 133/73 97 Capillary Refill : Less Than 3 Seconds I&O Intake and Output 06/23/16 00:00 Intake Total 900 ml Balance 900 ml Intake Oral 900 ml # Voids 4 # Bowel Movements 3 General: Alert, Oriented X3, Cooperative, No Acute Distress HEENT: Atraumatic, PERRLA, EOMI, Mucous Memb Moist/[place] Neck: Supple, No JVD Lungs: Other (course breath sounds left base) Heart: Regular Rate Abdomen: Normal Bowel Sounds, Soft, No Tenderness Extremities: Other (trace edema rt ankle) Neuro: Other (decreased strength rt hip) Results Lab Laboratory Tests 06/22/16 12:20: Potassium Level 4.3 06/23/16 09:30: Potassium Level 3.7, Alanine Aminotransferase (ALT/SGPT) 37, Albumin 3.4, Alkaline Phosphatase 95, Anion Gap 11, Aspartate Amino Transf (AST/SGOT) 25, BUN /Creatinine Ratio 20, Basophils # (Auto) 0.1, Basophils (%) (Auto) 1, Blood Urea Nitrogen 15, Calcium Level 8.8, Carbon Dioxide Level 25, Chloride Level 101 , Creatinine 0.74, Eosinophils # (Auto) 0.5H, Eosinophils (%) (Auto) 6, Estimat Glomerular Filtration Rate > 60, Glucose Level 90, Hematocrit 34L, Hemoglobin 11.2L, Lymphocytes # (Auto) 1.6, Lymphocytes (%) (Auto) 18, Mean Corpuscular Hemoglobin 31, Mean Corpuscular Hemoglobin Concent 33, Mean Corpuscular Volume 95, Mean Platelet Volume 9.4, Monocytes # (Auto) 1.0, Monocytes (%) (Auto) 11, Neutrophils # (Auto) 5.8, Neutrophils (%) (Auto) 64, Platelet Count 241, Red Blood Count 3.57L, Red Cell Distribution Width 12.8, Sodium Level 137, Total Bilirubin 0.7, Total Protein 5.9L, White Blood Count 9.1 Assessment/Plan Assessment rt hip frx s/p repair Ortho Postop anemia DJD rt knee HTN controlled DVT prophylaxis on Lovenox SQ Plan Continue PT/OT Team Conference tomorrow Pain management Continue Current meds. Hyponatremia resolved. STACEY DUMONT MD Jun 23, 2016 18:17
--- NOTE | 2016-06-23 18:24 | Individualized Plan of Care ---
Individualized Plan of Care Rehab Nursing IPOC Order Admission Date Jun 21, 2016 at 13:55 Current Orders Orders-STACEY DUMONT MD Patient Visit (06/22/16 ) Speech Sound Ralph Comp (06/22/16 ) Patient Visit (06/22/16 ) Pt Eval Low Complexity (06/22/16 ) Wheelchair Mgmt/Propulsn 15min (06/22/16 ) Functional Activities, Ea 15 (06/22/16 ) Gait Training, Ea 15 Min (06/22/16 ) Patient Visit (06/22/16 ) Gait Training, Ea 15 Min (06/22/16 ) Admission-Acute Rehab Unit (06/22/16 19:29) Diclofenac 1% Gel (Voltaren 1% Gel) (06/22/16 21:00) Patient Visit (06/23/16 ) Exercise Therap, Ea 15 Min (06/23/16 ) Functional Activities, Ea 15 (06/23/16 ) Gait Training, Ea 15 Min (06/23/16 ) PT IPOC Problem List: Activity Tolerance, Functional Strength, Safety, Balance, Gait, Transfer, Bed Mobility Treatment Plan: Continue Plan of Care Bed Mobility, Education, Functional Activity Anup, Functional Strength, Group Therapy, Gait, Safety, Therapeutic Exercise, Transfers Treatment Duration: Jul 13, 2016 Visits Per Week: 10-11 Minutes/Day (M-F): 60-90 Minutes/Day (Sat/Porter): 15-30 OT IPOC Problems: Decreased Activ Tolerance, Decreased Safety Aware, Dependent Transfers, Impaired Self-Care Skills OT Problems Pt to benefit from skilled OT intervention for ADL training, transfers, strengthening, and adaptive equipment education to maximize level of function and allow safe discharge. Plan of Care: ADL Retraining, Functional Mobility, Group Exercise/Act as Ind, UE Funct Exercise/Act Treatment Duration: Jul 13, 2016 Visits Per Week: 10-11 Minutes/Day (M-F): 60-90 Minutes/Day (Sat/Porter): PRN ST IPOC Speech Therapy Treatment Plan: Discontinue ST (Eval, only.) Physician IPOC Medical Issues being managed closely and that require the 24 hour availability of a physician:Hyponatremia Pain management HTN Medical Issues: DVT Prophylaxis, Falls Precautions, Fluid/Electrolyte/ Nutrition Balance, Infection Protection, Pain Management, Wound Care, Other ( List) (as per above) Brief Synthesis of Preadmission Screen, Post-Admission Evaluation, and Therapy Evaluations: 80 yo female who had been Independent and living in community who fell after being hit by an outside door with resulting hip frx had repair with ortho referred to IRU due to decline in functional [place] [facility] Prognosis: good Anticipated Length of Stay: 2 weeks Rehab Goals Modified [place] for adls and mobility skills or supervision as needed prior to discharge to home with family and [facility] Has supportive family that live nearby Anticipated discharge destinat: Home with [facility] STACEY DUMONT MD Jun 23, 2016 18:24
[2016-06-23] MEDS: SIMvastatin 20 MG (ZOCOR) TAB PO SCH (20:00)
[2016-06-23] MEDS: AMITRIPTYLINE 10 MG (ELAVIL) TAB PO SCH (20:00)
[2016-06-24] MEDS: HYDROcodone/APAP 5 MG/325 MG (LORTAB) TAB PO PRN ×3 (01:57→20:15)
[2016-06-24 04:33] VITALS: BP 158/77
[2016-06-24] MEDS: MULTIVIT W/MINERALS TAB (THERAGRAN M) PO SCH (06:47)
[2016-06-24] MEDS: DICLOFENAC 1% GEL 100 GM (VOLTAREN) TUBE TOP SCH ×4 (06:54→20:15)
[2016-06-24] MEDS: LOSARTAN 50 MG (COZAAR) TAB PO SCH (08:11)
[2016-06-24] MEDS: ENOXAPARIN 40 MG/0.4 ML (LOVENOX) SYR SC SCH (08:12)
[2016-06-24] MEDS: DOCUSATE SODIUM 100 MG (COLACE) CAP PO SCH ×2 (08:12→20:15)
[2016-06-24] MEDS: VITAMIN D3 1,000 UNITS (CHOLECALCIFEROL) TABLET PO SCH (08:12)
[2016-06-24] MEDS: SERTRALINE 50 MG (ZOLOFT) TABLET PO SCH (08:12)
[2016-06-24] MEDS: OMEGA 3 (FISH OIL) 1000 MG CAP PO SCH (08:12)
[2016-06-24] MEDS: ASPIRIN E.C. 81 MG (ECOTRIN) TAB PO SCH (08:13)
--- NOTE | 2016-06-24 09:15 | Occupational Ther Daily Note ---
OT Current Status-Daily Note Subjective Pt alert, sitting in recliner with legs up. Pt agreed to therapy. C/o pain, rated 9/10, nrsg brought pain meds then during therapy pain rated at 7/10 Mental Status/Objective Functional [place] Measure 0=Not Assessed/NA 4=Minimal Assistance 1=Total Assistance 5=Supervision or Setup 2=Maximal Assistance 6=Modified [place] 3=Moderate Assistance 7=Complete [place] ADL-Treatment Pt ambulated into bathroom with CGA using FWW. Pt transferred onto toilet using FWW and grabbars with CGA then toileted self with CGA. Pt transferred into shower with CGA using grabbars, FWW and shower bench. Pt asked about her hip precautions for confirmation before her shower. Pt was able to bathe self using long handle sponge, bench, hand held shower and grabbars SBA then when standing CGA. Pt able to doff pants and socks with compliance quality performance analyst then used sock aide to don socks and compliance quality performance analyst to don pants with CGA. OT donned TEOFILO hose. Pt was able to maintain hip precautions, she did ask if she was doing it correctly. After therapy, pt sitting up in recliner with call light/phone in reach. All needs met in room. Functional [place] Measure 0=Not Assessed/NA 4=Minimal Assistance 1=Total Assistance 5=Supervision or Setup 2=Maximal Assistance 6=Modified [place] 3=Moderate Assistance 7=Complete IndependenceIRFPAI Quality Coding Scale 6 Independent with activity with or without an assistive device 5 Patient requires set up or clean up by helper. Patient completes activity by themselves 4 Supervision or touching assist (CGA). [place] provide cues , steadying assist 3 The helper provides less than half the effort to complete the activity 2 The helper provides more than half the effort to complete the activity 1 Dependent. The helper does all the effort to complete an activity 7 Patient refused to complete or attempt activity 9 The patient did not perform the activity before the current illness or injury 88 Not attempted due to Medical conditions or safety concerns Toileting Hygiene (QC): 4 Bathing (FIM): 4 Bathing Location: L Arm, R Arm, L Upper Leg, R Upper Leg, L Lower Leg ( including foot), R Lower Leg (including foot), Chest, Abdomen, Buttocks, Perineal Area Upper Body (FIM): 5 Lower Body Dressing (FIM): 4 Toileting (FIM): 4 Transfers (B, C, W/C) (FIM): 4 Toilet/Commode Transfer (FIM): 4 Shower Transfer(FIM): 4 Education OT Patient Education: Modified ADL techniques, Reviewed precautions Teaching Recipient: Patient Teaching Methods: Demonstration, Discussion Response to Teaching: Verbalize Understanding, Return Demonstration OT Short Term Goals Short Term Goals Time Frame: Jun 29, 2016 Bathing(FIM): 4 Lower Body Dressing(FIM): 3 Toileting(FIM): 3 Tub Transfer(FIM): 4 (CGA) Additional Short Term Goals: 1-Demonstrate ADL Tasks, 2-Verbalize Understanding , 3-ImproveStrength/Anup 1=Demonstrate adherence to instructed precautions during ADL tasks. 2=Patient will verbalize/demonstrate understanding of assistive devices/ modifications for ADL. 3=Patient will improve strength/tolerance for activity to enable patient to perform ADL's. OT Half-Way Goals Manager Front Office Goals Time Frame: Jul 13, 2016 Eating (FIM): 6 Eating (QC): 6 Oral Hygiene (QC): 6 Grooming(FIM): 6 Bathing(FIM): 5 Shower/Bathe Self (QC): 5 Upper Body Dressing(FIM): 6 Upper Body Dressing (QC): 6 Lower Body Dressing(FIM): 5 Lower Body Dressing (QC): 5 On/Off Footwear (QC): 6 Toileting(FIM): 5 Toileting Hygiene (QC): 5 Toilet/Commode Transfer(FIM): 6 Toilet/Commode Transfer (QC): 6 Shower Transfer(FIM): 5 Additional Goals: 1-Demonstrate ADL Tasks, 2-Verbalize Understanding, 3- ImproveStrength/Anup 1=Demonstrate adherence to instructed precautions during ADL tasks. 2=Patient will verbalize/demonstrate understanding of assistive devices/ modifications for ADL. 3=Patient will improve strength/tolerance for activity to enable patient to perform ADL's. OT Education/Plan Problem List/Assessment Pt to benefit from skilled OT intervention for ADL training, transfers, strengthening, and adaptive equipment education to maximize level of function and allow safe discharge. Discharge Recommendations Plan/Recommendations: Continue POC Treatment Plan/Plan of Care Patient would benefit from OT for education, treatment and training to promote independence in ADL's, mobility, safety and/or upper extremity function for ADL' s. Plan of Care: ADL Retraining, Functional Mobility, Group Exercise/Act as Ind, UE Funct Exercise/Act Treatment Duration: Jul 13, 2016 Visits Per Week: 10-11 Minutes/Day (M-F): 60-90 Minutes/Day (Sat/Porter): PRN Agreement: Yes Rehab Potential: Fair Time/GCodes Start Time: 08:00 Stop Time: 09:00 Total Time Billed (hr/min): 60 Billed Treatment Time 1 visit-ADL 4 (60 min) GINI DELONG Jun 24, 2016 09:15
--- NOTE | 2016-06-24 10:16 | Physical Therapy Daily Note ---
PT Daily Note-Current Subjective Pt. c/o 9/10 pain in right knee christel with attempts to bend it as well as in conjunction with her hip. Pain Numeric Pain Scale: 9 Location: Right Location Body Site: Knee Pain Description: Pressure Mental Status Patient Orientation: Normal For Age Transfers Functional [place] Measure 0=Not Assessed/NA 4=Minimal Assistance 1=Total Assistance 5=Supervision or Setup 2=Maximal Assistance 6=Modified [place] 3=Moderate Assistance 7=Complete IndependenceIRFPAI Quality Coding Scale 6 Independent with activity with or without an assistive device 5 Patient requires set up or clean up by helper. Patient completes activity by themselves 4 Supervision or touching assist (CGA). [place] provide cues , steadying assist 3 The helper provides less than half the effort to complete the activity 2 The helper provides more than half the effort to complete the activity 1 Dependent. The helper does all the effort to complete an activity 7 Patient refused to complete or attempt activity 9 The patient did not perform the activity before the current illness or injury 88 Not attempted due to Medical conditions or safety concerns Transfers (B, C, W/C) (FIM): 4 Scootin Rollin Supine to/from Sit: 4 Sit to/from Stand: 5 Bed to/from Chair: 5 assist for RLE required in out bed Weight Bearing Weight Bearing Restriction: Weight Bearing/Tolerated Location Restriction: R LE Gait Training Does the Patient Walk?: Yes Gait (FIM): 2 Distance (FIM): 7=362-91 ft (100x3) Gait Level of Assist: 5 Gait Persons Needed: 1 Gait Assistive Device: FWW Exercises Supine Ex: Heel Slides (with assist), Short Arc Quads, Straight leg raise ( with assist), Hip abd/add (with assit) Supine Reps: 12 Seated Therapy Exercises: Ankle pumps, Sit to stand, Long arc quads Seated Reps: 15 Assessment Current Status: Fair Progress pain in right knee limits ther ex PT Short Term Goals Short Term Goals Time Frame: Jun 29, 2016 Gait (FIM): 2 Gait Distance Comment: 50' Gait Level of Assist: 4 Gait Assistive Device: FWW Wheelchair (FIM): 4 Wheelchair Distance: 150' Wheelchair Level of Assist: 4 (cga) PT Halfway Goals Rv Service Technician Goals PT Halfway Goals Time Frame: Jul 13, 2016 Transfers (B,C,W/C) (FIM): 5 Sit to Lying (QC): 4 Lying-Sitting on Side/Bed(QC): 4 Sit to Stand (QC): 4 Rollin Roll Left to Right (QC): 4 Chair/Olh-yd-Kotsj Xfer(QC): 4 Car Transfer (QC): 4 Does the Patient Walk: Yes Gait (FIM): 5 Distance: 150' Walk 10 feet (QC): 4 Walk 10ft-Uneven Surface(QC): 4 Walk 50ft with 2 Turns (QC): 4 Walk 150 ft (QC): 4 Gait Level of Assist: 5 Gait Assistive Device: FWW Wheelchair (FIM): 6 Distance: 150' Wheel 50 feet with 2 turns (QC: 6 Stairs (FIM): 2 # of Steps: 4 1 Step (curb) (QC): 4 4 Steps (QC): 4 12 Steps (QC): 88 Stairs Level Of Assist: 4 (CGA) Picking up an Object (QC): 88 PT Plan Treatment/Plan Treatment Plan: Continue Plan of Care Treatment Plan: Bed Mobility, Education, Functional Activity Anup, Functional Strength, Group Therapy, Gait, Safety, Therapeutic Exercise, Transfers Treatment Duration: Jul 13, 2016 Visits Per Week: 10-11 Minutes/Day (M-F): 60-90 Minutes/Day (Sat/Porter): 15-30 Safety Risks/Education Patient Education: Gait Training, Transfer Techniques, Issued Written HEP, Correct Positioning, Disease Process, Safety Issues Teaching Recipient: Patient Teaching Methods: Demonstration, Discussion Response to Teaching: Verbalize Understanding, Return Demonstration, Reinforcement Needed Time/GCodes Time In: 915 Time Out: 1015 Total Billed Treatment Time: 60 Total Billed Treatment 1,GT30m,EX30m G Codes Necessary: BRITTON Pfeiffer SENIOR SSIS DEVELOPER Jun 24, 2016 10:16
--- NOTE | 2016-06-24 11:04 | Progress Note-Hospitalist ---
Progress Note Progress Notes/Assess & Plan Date Seen 06/24/16 Diagonsis/Assessment & Plan Chart Review: Na+ 137 Max fever 100 but none currently WBC and CMP normal yesterday first line production supervisor: Dr. Valentin informs RN of fluid restriction DC Patient Interview: Pt has been ambulating. Pt states that she still has pain in her right knee. Pt states that Dr. Hammonds saw pt yesterday and discussed getting a shot in her knee for the pain. Pt would not like to have an injection now, but may in the near future. Physical exam was stable. Pt states that she is no longer taking bowel meds because she is having regular BMs. Pt is still taking breathing treatments. Scribed by Ubaldo Garcia under the direct supervision of Dr. Valentin. AFVSS, [place], O x 3 RRR, CTAB except coarse BS LLL but much improved No edema Assessment: acute right hip fracture POD # 7 Hypertension Coarse breath sounds in the bases with history of pneumonia and atelectasis of the left lower lobe much improved Anxiety Plan: DC fluid restriction Continue breathing treatments STEWART VALENTIN DO Jun 24, 2016 11:04 the left lower lobe Anxiety Plan: Check labs in order to entertain discontinuation of fluid restriction due to hyponatremia STEWART VALENTIN DO Jun 24, 2016 11:04
--- NOTE | 2016-06-24 14:19 | PM & R (SOAP) Progress Note ---
Subjective Subjective/Events-last exam Patient was seen in her room this AM Appreciate DR Hendrix note and current labs and orders.Patient min assist for transfers.Feels that the Voltaran gel is helping with pain Objective Exam Last Set of Vital Signs Vital Signs Date Time Temp Pulse Resp B/P Pulse Ox O2 Delivery O2 Flow Rate FiO2 06/24/16 09:00 Room Air 06/24/16 04:33 97.4 91 16 158/77 96 Capillary Refill : Less Than 3 Seconds I&O Intake and Output 06/24/16 00:00 Intake Total 1160 ml Balance 1160 ml Intake Oral 1160 ml # Voids 7 # Bowel Movements 3 General: Alert, Oriented X3, Cooperative, No Acute Distress HEENT: Atraumatic, PERRLA, EOMI, Mucous Memb Moist/[place] Neck: Supple, No JVD Lungs: Other (course breath sounds left base) Heart: Regular Rate Abdomen: Normal Bowel Sounds, Soft, No Tenderness Extremities: Other (trace edema rt ankle) Neuro: Other (decreased strength rt hip) Results Lab Laboratory Tests 06/22/16 12:20: Potassium Level 4.3 06/23/16 09:30: Potassium Level 3.7, Alanine Aminotransferase (ALT/SGPT) 37, Albumin 3.4, Alkaline Phosphatase 95, Anion Gap 11, Aspartate Amino Transf (AST/SGOT) 25, BUN /Creatinine Ratio 20, Basophils # (Auto) 0.1, Basophils (%) (Auto) 1, Blood Urea Nitrogen 15, Calcium Level 8.8, Carbon Dioxide Level 25, Chloride Level 101 , Creatinine 0.74, Eosinophils # (Auto) 0.5H, Eosinophils (%) (Auto) 6, Estimat Glomerular Filtration Rate > 60, Glucose Level 90, Hematocrit 34L, Hemoglobin 11.2L, Lymphocytes # (Auto) 1.6, Lymphocytes (%) (Auto) 18, Mean Corpuscular Hemoglobin 31, Mean Corpuscular Hemoglobin Concent 33, Mean Corpuscular Volume 95, Mean Platelet Volume 9.4, Monocytes # (Auto) 1.0, Monocytes (%) (Auto) 11, Neutrophils # (Auto) 5.8, Neutrophils (%) (Auto) 64, Platelet Count 241, Red Blood Count 3.57L, Red Cell Distribution Width 12.8, Sodium Level 137, Total Bilirubin 0.7, Total Protein 5.9L, White Blood Count 9.1 Assessment/Plan Assessment rt hip frx s/p repair Ortho Postop anemia DJD rt knee HTN controlled DVT prophylaxis on Lovenox SQ Hyponatremia improved Plan Continue PT/OT Pain management Continue Current meds. Hyponatremia resolved.-fluid restriction d/cd Team Conference held earlier today -See report for full functional update and POC and STACEY ROBERTS MD Jun 24, 2016 14:18
--- NOTE | 2016-06-24 14:40 | Therapy Group Daily Note ---
Therapy Daily Group Note Patient Education Topic Home Safety, Fall Prevention, Exercises, Other List Below (ARU expectations and description) Exercises LE Seated Exercise, UE Exercise Other/Notes Pt ambulated to therapy [facility], [facility], [facility]. Pt participated in peer interaction, socializing by introducing self and place of currently living. Problem solving used to answer questions to complete cognitive activity. UE,LE exercise seated in chair. Balloon used for eye hand coordination. Pt ambulated back to room, [facility], [facility]. Pt lest sitting up right in recliner, call light in reach. All needs met. Start Time: 13:00 Stop Time: 14:00 Total Billed Treatment Time: 60 Total Billed Treatment 1-GRP GINI DELONG Jun 24, 2016 14:40
[2016-06-24 18:00] VITALS: BP 166/68
[2016-06-24] MEDS: SIMvastatin 20 MG (ZOCOR) TAB PO SCH (20:15)
[2016-06-24] MEDS: AMITRIPTYLINE 10 MG (ELAVIL) TAB PO SCH (20:15)
[2016-06-25 06:00] VITALS: BP 157/75
[2016-06-25] MEDS: MULTIVIT W/MINERALS TAB (THERAGRAN M) PO SCH (06:11)
[2016-06-25] MEDS: HYDROcodone/APAP 5 MG/325 MG (LORTAB) TAB PO PRN ×2 (06:47→15:43)
[2016-06-25] MEDS: DICLOFENAC 1% GEL 100 GM (VOLTAREN) TUBE TOP SCH ×4 (08:15→21:18)
[2016-06-25] MEDS: ASPIRIN E.C. 81 MG (ECOTRIN) TAB PO SCH (08:25)
[2016-06-25] MEDS: ENOXAPARIN 40 MG/0.4 ML (LOVENOX) SYR SC SCH (08:25)
[2016-06-25] MEDS: LOSARTAN 50 MG (COZAAR) TAB PO SCH (08:25)
[2016-06-25] MEDS: VITAMIN D3 1,000 UNITS (CHOLECALCIFEROL) TABLET PO SCH (08:25)
[2016-06-25] MEDS: SERTRALINE 50 MG (ZOLOFT) TABLET PO SCH (08:25)
[2016-06-25] MEDS: OMEGA 3 (FISH OIL) 1000 MG CAP PO SCH (08:25)
[2016-06-25] MEDS: DOCUSATE SODIUM 100 MG (COLACE) CAP PO SCH ×2 (08:25→21:00)
--- NOTE | 2016-06-25 09:16 | Occupational Ther Daily Note ---
OT Current Status-Daily Note Subjective Pt alert, sitting in recliner with feet up. Pt agreed to therapy. C/o pain in R hip and knee, 02/14. Pt stated that she had pain meds already, but needed her cream on her knee. Nrsg called then nrsg applied cream. Mental Status/Objective Patient Orientation: Person, Place, Time, Situation Functional [place] Measure 0=Not Assessed/NA 4=Minimal Assistance 1=Total Assistance 5=Supervision or Setup 2=Maximal Assistance 6=Modified [place] 3=Moderate Assistance 7=Complete [place] ADL-Treatment Pt declined bathing today. Pt requested to use toilet. Ambulated to bathroom with CGA due to increased pain in knee. Pt able to transfer on/off toilet using FWW and grabbars with SBA. SBA for toileting hygiene. After set up, pt able to don/doff socks and pants using AE. SBA when standing to hike pants over hips. OT donned TEOFILO hose. Pt did not like what she chose to wear so she changed her outfit. After therapy, pt sitting in recliner with feet up. Call light/phone in reach. All needs met in room. Functional [place] Measure 0=Not Assessed/NA 4=Minimal Assistance 1=Total Assistance 5=Supervision or Setup 2=Maximal Assistance 6=Modified [place] 3=Moderate Assistance 7=Complete IndependenceIRFPAI Quality Coding Scale 6 Independent with activity with or without an assistive device 5 Patient requires set up or clean up by helper. Patient completes activity by themselves 4 Supervision or touching assist (CGA). [place] provide cues , steadying assist 3 The helper provides less than half the effort to complete the activity 2 The helper provides more than half the effort to complete the activity 1 Dependent. The helper does all the effort to complete an activity 7 Patient refused to complete or attempt activity 9 The patient did not perform the activity before the current illness or injury 88 Not attempted due to Medical conditions or safety concerns Upper Body (FIM): 5 Lower Body Dressing (FIM): 5 Toileting (FIM): 5 Transfers (B, C, W/C) (FIM): 4 Toilet/Commode Transfer (FIM): 5 OT Short Term Goals Short Term Goals Time Frame: Jun 29, 2016 Bathing(FIM): 4 Lower Body Dressing(FIM): 3 Toileting(FIM): 3 Tub Transfer(FIM): 4 (CGA) Additional Short Term Goals: 1-Demonstrate ADL Tasks, 2-Verbalize Understanding , 3-ImproveStrength/Anup 1=Demonstrate adherence to instructed precautions during ADL tasks. 2=Patient will verbalize/demonstrate understanding of assistive devices/ modifications for ADL. 3=Patient will improve strength/tolerance for activity to enable patient to perform ADL's. OT Barber Shop Manager Goals Halfway Goals Time Frame: Jul 13, 2016 Eating (FIM): 6 Eating (QC): 6 Oral Hygiene (QC): 6 Grooming(FIM): 6 Bathing(FIM): 5 Shower/Bathe Self (QC): 5 Upper Body Dressing(FIM): 6 Upper Body Dressing (QC): 6 Lower Body Dressing(FIM): 5 Lower Body Dressing (QC): 5 On/Off Footwear (QC): 6 Toileting(FIM): 5 Toileting Hygiene (QC): 5 Toilet/Commode Transfer(FIM): 6 Toilet/Commode Transfer (QC): 6 Shower Transfer(FIM): 5 Additional Goals: 1-Demonstrate ADL Tasks, 2-Verbalize Understanding, 3- ImproveStrength/Anup 1=Demonstrate adherence to instructed precautions during ADL tasks. 2=Patient will verbalize/demonstrate understanding of assistive devices/ modifications for ADL. 3=Patient will improve strength/tolerance for activity to enable patient to perform ADL's. OT Education/Plan Problem List/Assessment Pt to benefit from skilled OT intervention for ADL training, transfers, strengthening, and adaptive equipment education to maximize level of function and allow safe discharge. Discharge Recommendations Plan/Recommendations: Continue POC Treatment Plan/Plan of Care Patient would benefit from OT for education, treatment and training to promote independence in ADL's, mobility, safety and/or upper extremity function for ADL' s. Plan of Care: ADL Retraining, Functional Mobility, Group Exercise/Act as Ind, UE Funct Exercise/Act Treatment Duration: Jul 13, 2016 Visits Per Week: 10-11 Minutes/Day (M-F): 60-90 Minutes/Day (Sat/Porter): PRN Agreement: Yes Rehab Potential: Fair Time/GCodes Start Time: 08:00 Stop Time: 09:00 Total Time Billed (hr/min): 60 Billed Treatment Time 1 visit-ADL 4 (60 min) GINI DELONG Jun 25, 2016 09:15
--- NOTE | 2016-06-25 10:10 | Physical Therapy Daily Note ---
PT Daily Note-Current Subjective Pt. initially states that she doesnt feel as well as she did yesterday, and that her right knee still giving her problems. States she is hoping to have Ortho consult on her knee about possible injection Pain Numeric Pain Scale: 3 Location: Right Location Body Site: Knee Pain Description: Ache Mental Status Patient Orientation: Normal For Age Transfers Functional [place] Measure 0=Not Assessed/NA 4=Minimal Assistance 1=Total Assistance 5=Supervision or Setup 2=Maximal Assistance 6=Modified [place] 3=Moderate Assistance 7=Complete IndependenceIRFPAI Quality Coding Scale 6 Independent with activity with or without an assistive device 5 Patient requires set up or clean up by helper. Patient completes activity by themselves 4 Supervision or touching assist (CGA). [place] provide cues , steadying assist 3 The helper provides less than half the effort to complete the activity 2 The helper provides more than half the effort to complete the activity 1 Dependent. The helper does all the effort to complete an activity 7 Patient refused to complete or attempt activity 9 The patient did not perform the activity before the current illness or injury 88 Not attempted due to Medical conditions or safety concerns Transfers (B, C, W/C) (FIM): 4 Scootin Rollin Supine to/from Sit: 4 Sit to/from Stand: 5 Bed to/from Chair: 5 pt. required min assist RLE sup to sit. sit to sup is SBA , slow careful Weight Bearing Weight Bearing Restriction: Weight Bearing/Tolerated Location Restriction: R LE Gait Training Does the Patient Walk?: Yes Gait (FIM): 5 Distance (FIM): 3=150 ft (x2) Gait Level of Assist: 5 Gait Persons Needed: 1 Gait Assistive Device: FWW slow, careful w/c to f/u Exercises Supine Ex: Ankle pumps, Quad Set, Rolling, Glut sets, Heel Slides, Short Arc Quads, Scooting, Straight leg raise, Hip abd/add Supine Reps: 15 Seated Therapy Exercises: Ankle pumps, Sit to stand, Long arc quads Seated Reps: 10 Assessment Current Status: Good Progress pt. felt some pain relief after moving and having therapy, discussed the importance of activity in preventing other problems etc PT Short Term Goals Short Term Goals Time Frame: Jun 29, 2016 Gait (FIM): 2 Gait Distance Comment: 50' Gait Level of Assist: 4 Gait Assistive Device: FWW Wheelchair (FIM): 4 Wheelchair Distance: 150' Wheelchair Level of Assist: 4 (cga) PT Speech Clinician Goals Speech Clinician Goals PT Speech Clinician Goals Time Frame: Jul 13, 2016 Transfers (B,C,W/C) (FIM): 5 Sit to Lying (QC): 4 Lying-Sitting on Side/Bed(QC): 4 Sit to Stand (QC): 4 Rollin Roll Left to Right (QC): 4 Chair/Cza-np-Rikos Xfer(QC): 4 Car Transfer (QC): 4 Does the Patient Walk: Yes Gait (FIM): 5 Distance: 150' Walk 10 feet (QC): 4 Walk 10ft-Uneven Surface(QC): 4 Walk 50ft with 2 Turns (QC): 4 Walk 150 ft (QC): 4 Gait Level of Assist: 5 Gait Assistive Device: FWW Wheelchair (FIM): 6 Distance: 150' Wheel 50 feet with 2 turns (QC: 6 Stairs (FIM): 2 # of Steps: 4 1 Step (curb) (QC): 4 4 Steps (QC): 4 12 Steps (QC): 88 Stairs Level Of Assist: 4 (CGA) Picking up an Object (QC): 88 PT Plan Treatment/Plan Treatment Plan: Continue Plan of Care Treatment Plan: Bed Mobility, Education, Functional Activity Anup, Functional Strength, Group Therapy, Gait, Safety, Therapeutic Exercise, Transfers Treatment Duration: Jul 13, 2016 Visits Per Week: 10-11 Minutes/Day (M-F): 60-90 Minutes/Day (Sat/Porter): 15-30 Safety Risks/Education Patient Education: Gait Training, Transfer Techniques, Correct Positioning, Disease Process, Safety Issues Teaching Recipient: Patient Teaching Methods: Demonstration, Discussion Response to Teaching: Verbalize Understanding, Return Demonstration, Reinforcement Needed Time/GCodes Time In: 915 Time Out: 1015 Total Billed Treatment Time: 60 Total Billed Treatment 1,EX30m,GT15m, FA15m G Codes Necessary: BRITTON Pfeiffer UNIT EDUCATOR Jun 25, 2016 10:10
--- NOTE | 2016-06-25 10:19 | PM & R (SOAP) Progress Note ---
Subjective Subjective/Events-last exam Patient was seen in her room this AM Progressing well with therapies Patient min assist for transfers Ortho to f/u repossible rt knee injection for painful OA In the meanwhile Voltaran gel helping.Discussed case with Patients daughter this AM re patient resuming her home supplement of chondroitin sulfate. Review of Systems Musculoskeletal: : leg pain Objective Exam Last Set of Vital Signs Vital Signs Date Time Temp Pulse Resp B/P Pulse Ox O2 Delivery O2 Flow Rate FiO2 06/25/16 07:31 98.9 06/25/16 06:00 90 20 157/75 97 Room Air Capillary Refill : Less Than 3 Seconds I&O Intake and Output 06/25/16 00:00 Intake Total 1010 ml Balance 1010 ml Intake Oral 1010 ml # Voids 6 # Bowel Movements 1 General: Alert, Oriented X3, Cooperative, No Acute Distress HEENT: Atraumatic, PERRLA, EOMI, Mucous Memb Moist/[place] Neck: Supple, No JVD Lungs: Other (course breath sounds left base) Heart: Regular Rate Abdomen: Normal Bowel Sounds, Soft, No Tenderness Extremities: Other (trace edema rt ankle) Neuro: Other (decreased strength rt hip) Results Lab Laboratory Tests 06/22/16 12:20: Potassium Level 4.3 06/23/16 09:30: Potassium Level 3.7, Alanine Aminotransferase (ALT/SGPT) 37, Albumin 3.4, Alkaline Phosphatase 95, Anion Gap 11, Aspartate Amino Transf (AST/SGOT) 25, BUN /Creatinine Ratio 20, Basophils # (Auto) 0.1, Basophils (%) (Auto) 1, Blood Urea Nitrogen 15, Calcium Level 8.8, Carbon Dioxide Level 25, Chloride Level 101 , Creatinine 0.74, Eosinophils # (Auto) 0.5H, Eosinophils (%) (Auto) 6, Estimat Glomerular Filtration Rate > 60, Glucose Level 90, Hematocrit 34L, Hemoglobin 11.2L, Lymphocytes # (Auto) 1.6, Lymphocytes (%) (Auto) 18, Mean Corpuscular Hemoglobin 31, Mean Corpuscular Hemoglobin Concent 33, Mean Corpuscular Volume 95, Mean Platelet Volume 9.4, Monocytes # (Auto) 1.0, Monocytes (%) (Auto) 11, Neutrophils # (Auto) 5.8, Neutrophils (%) (Auto) 64, Platelet Count 241, Red Blood Count 3.57L, Red Cell Distribution Width 12.8, Sodium Level 137, Total Bilirubin 0.7, Total Protein 5.9L, White Blood Count 9.1 Assessment/Plan Assessment rt hip frx s/p repair Ortho Postop anemia DJD rt knee HTN controlled DVT prophylaxis on Lovenox SQ Hyponatremia improved Plan Continue PT/OT Pain management Continue Current meds. Hyponatremia resolved.-fluid restriction d/cd Team Conference held yesterday -See report for full functional update and POC and ELOS Possible f/u with ortho re injection rt knee for painful OA STACEY DUMONT MD Jun 25, 2016 10:19
[2016-06-25] MEDS: GLUCOSAMINE PO SCH ×2 (12:17→21:00)
[2016-06-25] MEDS: CHONDROITIN PO SCH ×2 (12:17→21:00)
--- NOTE | 2016-06-25 13:58 | Occupational Ther Daily Note ---
OT Current Status-Daily Note Subjective Pt alert, sitting in recliner. Pt stated that she had thought that she had to go to longterm from ARU, staff corrected her that she would be able to go home as long as she was safe enough to do so. Pt agreed to therapy. Mental Status/Objective Patient Orientation: Person, Place, Time, Situation Functional [place] Measure 0=Not Assessed/NA 4=Minimal Assistance 1=Total Assistance 5=Supervision or Setup 2=Maximal Assistance 6=Modified [place] 3=Moderate Assistance 7=Complete [place] ADL-Treatment Pt requested to go to bathroom and don shoes prior to going to therapy gym. Pt was able to ambulated with CGA using FWW then SBA for transfer to toilet using grabbars. Pt then was able to cleanse self and manipulate clothing with SBA. Pt ambulated to sink to wash hands using FWW for stability. Pt then ambulated back to chair to doff socks with nuclear control operator then slid own foot into each shoe. Pt then ambulated to therapy ARU kitchen and was able to reach into cabinet to retrieve cup standing at counter with close SBA. Pt then poured own cup of coffee and placed lid for transportation to table. Close SBA when ambulating to table while using FWW and carrying coffee cup. Functional [place] Measure 0=Not Assessed/NA 4=Minimal Assistance 1=Total Assistance 5=Supervision or Setup 2=Maximal Assistance 6=Modified [place] 3=Moderate Assistance 7=Complete IndependenceIRFPAI Quality Coding Scale 6 Independent with activity with or without an assistive device 5 Patient requires set up or clean up by helper. Patient completes activity by themselves 4 Supervision or touching assist (CGA). [place] provide cues , steadying assist 3 The helper provides less than half the effort to complete the activity 2 The helper provides more than half the effort to complete the activity 1 Dependent. The helper does all the effort to complete an activity 7 Patient refused to complete or attempt activity 9 The patient did not perform the activity before the current illness or injury 88 Not attempted due to Medical conditions or safety concerns Other Treatment Pt then complete red (medium resistance) theraputty to increase strength for men's basketball coach, wrist and forearm, 10x's each hand. Then ambulated back to room to sit in recliner. Call light/phone in reach. All needs met in room. OT Short Term Goals Short Term Goals Time Frame: Jun 29, 2016 Bathing(FIM): 4 Lower Body Dressing(FIM): 3 Toileting(FIM): 3 Tub Transfer(FIM): 4 (CGA) Additional Short Term Goals: 1-Demonstrate ADL Tasks, 2-Verbalize Understanding , 3-ImproveStrength/Anup 1=Demonstrate adherence to instructed precautions during ADL tasks. 2=Patient will verbalize/demonstrate understanding of assistive devices/ modifications for ADL. 3=Patient will improve strength/tolerance for activity to enable patient to perform ADL's. OT Shelter Goals Webbing Inspector Goals Time Frame: Jul 13, 2016 Eating (FIM): 6 Eating (QC): 6 Oral Hygiene (QC): 6 Grooming(FIM): 6 Bathing(FIM): 5 Shower/Bathe Self (QC): 5 Upper Body Dressing(FIM): 6 Upper Body Dressing (QC): 6 Lower Body Dressing(FIM): 5 Lower Body Dressing (QC): 5 On/Off Footwear (QC): 6 Toileting(FIM): 5 Toileting Hygiene (QC): 5 Toilet/Commode Transfer(FIM): 6 Toilet/Commode Transfer (QC): 6 Shower Transfer(FIM): 5 Additional Goals: 1-Demonstrate ADL Tasks, 2-Verbalize Understanding, 3- ImproveStrength/Anup 1=Demonstrate adherence to instructed precautions during ADL tasks. 2=Patient will verbalize/demonstrate understanding of assistive devices/ modifications for ADL. 3=Patient will improve strength/tolerance for activity to enable patient to perform ADL's. OT Education/Plan Problem List/Assessment Pt to benefit from skilled OT intervention for ADL training, transfers, strengthening, and adaptive equipment education to maximize level of function and allow safe discharge. Discharge Recommendations Plan/Recommendations: Continue POC Treatment Plan/Plan of Care Patient would benefit from OT for education, treatment and training to promote independence in ADL's, mobility, safety and/or upper extremity function for ADL' s. Plan of Care: ADL Retraining, Functional Mobility, Group Exercise/Act as Ind, UE Funct Exercise/Act Treatment Duration: Jul 13, 2016 Visits Per Week: 10-11 Minutes/Day (M-F): 60-90 Minutes/Day (Sat/Porter): PRN Agreement: Yes Rehab Potential: Fair Time/GCodes Start Time: 11:30 Stop Time: 12:00 Total Time Billed (hr/min): 30 Billed Treatment Time 1 visit-FA 2 (30 min) GINI DELONG Jun 25, 2016 13:58
--- NOTE | 2016-06-25 15:31 | Physical Therapy Daily Note ---
PT Daily Note-Current Subjective Pt. states she is feeling much better. Her knee is much better, less pain and she is much encouraged b/c she now realizes she can make it back home. Pain Numeric Pain Scale: 0-No Pain Mental Status Patient Orientation: Normal For Age Transfers Functional [place] Measure 0=Not Assessed/NA 4=Minimal Assistance 1=Total Assistance 5=Supervision or Setup 2=Maximal Assistance 6=Modified [place] 3=Moderate Assistance 7=Complete IndependenceIRFPAI Quality Coding Scale 6 Independent with activity with or without an assistive device 5 Patient requires set up or clean up by helper. Patient completes activity by themselves 4 Supervision or touching assist (CGA). [place] provide cues , steadying assist 3 The helper provides less than half the effort to complete the activity 2 The helper provides more than half the effort to complete the activity 1 Dependent. The helper does all the effort to complete an activity 7 Patient refused to complete or attempt activity 9 The patient did not perform the activity before the current illness or injury 88 Not attempted due to Medical conditions or safety concerns all TRFs slow but SBA Gait Training Gait Assistive Device: FWW 160 ft x2 FWW WBAT RLE with improved heels strike , knee flexion and toe off improved , better flow with gait, pt. does still heavy wt bear on UEs Stair Training Stair Training: Handrails/: 2 handrails Stairs (FIM): 5 #of Steps: 4 Stairs: Pattern: Step to Level of Assist: 5 household exception, skilled verbal instruction for sequence and safety , pt. very proud she achieved this goal Treatments up in chair after Rx , joshi at hand Assessment Current Status: Good Progress pt. is motivated, progress noted all aspects of Rx PT Short Term Goals Short Term Goals Time Frame: Jun 29, 2016 Gait (FIM): 2 Gait Distance Comment: 50' Gait Level of Assist: 4 Gait Assistive Device: FWW Wheelchair (FIM): 4 Wheelchair Distance: 150' Wheelchair Level of Assist: 4 (cga) PT Forestry Faculty Member Goals Forestry Faculty Member Goals PT Forestry Faculty Member Goals Time Frame: Jul 13, 2016 Transfers (B,C,W/C) (FIM): 5 Sit to Lying (QC): 4 Lying-Sitting on Side/Bed(QC): 4 Sit to Stand (QC): 4 Rollin Roll Left to Right (QC): 4 Chair/Qvw-dg-Ellum Xfer(QC): 4 Car Transfer (QC): 4 Does the Patient Walk: Yes Gait (FIM): 5 Distance: 150' Walk 10 feet (QC): 4 Walk 10ft-Uneven Surface(QC): 4 Walk 50ft with 2 Turns (QC): 4 Walk 150 ft (QC): 4 Gait Level of Assist: 5 Gait Assistive Device: FWW Wheelchair (FIM): 6 Distance: 150' Wheel 50 feet with 2 turns (QC: 6 Stairs (FIM): 2 # of Steps: 4 1 Step (curb) (QC): 4 4 Steps (QC): 4 12 Steps (QC): 88 Stairs Level Of Assist: 4 (CGA) Picking up an Object (QC): 88 PT Plan Treatment/Plan Treatment Plan: Continue Plan of Care Treatment Plan: Bed Mobility, Education, Functional Activity Anup, Functional Strength, Group Therapy, Gait, Safety, Therapeutic Exercise, Transfers Treatment Duration: Jul 13, 2016 Visits Per Week: 10-11 Minutes/Day (M-F): 60-90 Minutes/Day (Sat/Porter): 15-30 Safety Risks/Education Patient Education: Gait Training, Transfer Techniques, Steps, Correct Positioning, Safety Issues Teaching Recipient: Patient Teaching Methods: Demonstration, Discussion Response to Teaching: Verbalize Understanding, Return Demonstration, Reinforcement Needed Time/GCodes Time In: 1405 Time Out: 1435 Total Billed Treatment Time: 30 Total Billed Treatment 1,GT20m,FA10m G Codes Necessary: BRITTON Pfeiffer BLUE LINE TRIMMER Jun 25, 2016 15:31
--- NOTE | 2016-06-25 16:41 | Consultation ---
History of Present Illness History of Present Illness Patient Consulted On([place]/time) 06/25/16 16:36 Date of Admission Reason for Visit: Right knee pain History of Present Illness Charla is a 80 year old female who is s/p ORIF Right hip fracture who is now complaining of right knee pain. Her pain began nearly 3 days prior and has been intermittent since. She says her knee pain runs all the way down her leg and at times is even on the left side, but mostly focused in her right knee. Orthopedics was consulted addictions counselor assistant Wednesday06/24/2016 for evaluation of this knee pain. Knee films were reviewed and show advanced arthritis of the left knee. Allergies and Home Medications Allergies Coded Allergies: No Known Drug Allergies (Verified , 02/19/15) Home Medications Amitriptyline HCl 10 Mg Tablet 10 MG PO HS (Reported) Aspirin 81 Mg Tablet.dr 81 MG PO HS (Reported) Cholecalciferol (Vitamin D3) 2,000 Unit Capsule 2,000 UNIT PO DAILY (Reported) Cyanocobalamin 1,000 Mcg/Ml Inj 1,000 MCG IJ MONTHLY (Reported) Dicyclomine HCl 20 Mg Tablet 20 MG PO TID PRN PRN ABDOMINAL PAIN (Reported) Hydrocodone/Acetaminophen 1 Each Tablet #20 1 EACH PO Q4H PRN PRN PAIN Prescribed by: WILLIAM BALDWIN on 06/21/16 1041 Losartan Potassium 50 Mg Tablet 50 MG PO DAILY (Reported) Multivitamin with Minerals 1 Each Tablet 1 TAB PO DAILY (Reported) [place]-3/Dha/Epa/Fish Oil 1 Each Capsule 1,000 MG PO DAILY (Reported) Sertraline HCl 50 Mg Tablet 25 MG PO DAILY (Reported) TAKES 1/2 OF A (50 MG) TABLET Simvastatin 20 Mg Tablet 20 MG PO HS (Reported) Past Dtuguzj-Nmiegl-Xljzyw Hx Patient Social History Alcohol Use: Denies Use Recreational Drug Use: No Smoking Status: Never a Smoker Recent Foreign Travel: No Contact w/Someone Who Travel: No Recent Infectious Disease Expo: No Physical Abuse Screen: No Sexual Abuse: No Immunizations Up To Date PED Vaccines UTD: No Date of Pneumonia Vaccine: Jun 17, 2013 Date of Influenza Vaccine: Mar 07, 2016 Seasonal Allergies Seasonal Allergies: No Surgeries HX Surgeries: No Respiratory Hx Respiratory Disorders: Yes Respiratory Disorders: Pneumonia Cardiovascular Hx Cardiac Disorders: Yes Cardiac Disorders: High Cholesterol, Hypertension Neurological Hx Neurological Disorders: No Reproductive System Sexually Transmitted Disease: No HIV/AIDS: No Genitourinary Hx Genitourinary Disorders: No Gastrointestinal Hx Gastrointestinal Disorders: No Musculoskeletal Hx Musculoskeletal Disorders: No Musculoskeletal Disorders: Osteoporosis Endocrine Hx Endocrine Disorders: No HEENT HX ENT Disorders: No HEENT Disorders: Cataract Cancer Hx Cancer: No Cancer: Breast Psychosocial Behavioral Health Disorders: Anxiety Family Medical History Family Medial History: CORNARY THROMBOSIS 19 MOTHER FH: coronary thrombosis Physical Exam-General Problems Physical Exam Vital Signs Vital Sign - Last 12Hours 06/21/16 13:45 Temp 98.9 Pulse 104 Resp 20 B/P 126/65 Pulse Ox 92 O2 Delivery Room Air Capillary Refill : Less Than 3 Seconds General Appearance: WD/WN no apparent distress Extremities: normal range of motion no calf tenderness other (Tenderness to medial and lateral palpation of Right knee, right knee effussion, positive crepitus, no pain IR/ER Right hip, positive stright leg raise right LE) Skin: normal color warm/dry Assessment/Plan Assessment/Plan Admission Diagnosis/Plan A) Right knee OA Right knee effussion L5 radiculopathy bilaterally, worse on the Right P) Right knee IAS injection Add neurontin 100mg po q TID for radiculopathy Clinical Quality Measures DVT/VTE Risk/Contraindication: Risk Factor Score Per Nursin RFS Level Per Nursing on Admit: 4+=Very High JUDITH DAVIDSON Jun 25, 2016 16:41
[2016-06-25] MEDS ORDERED: LIDOCAINE 1% INJ 20 ML (XYLOCAINE) VIAL INJ NR (16:45)
[2016-06-25] MEDS ORDERED: BETAMETHASONE ACE/NA PHOS 6 MG/ML (CELESTONE SOLUSPAN) IM ONE (16:45)
--- NOTE | 2016-06-25 16:50 | Procedure Note ---
Procedure Note Vital Signs Vital Signs Date Time Temp Pulse Resp B/P Pulse Ox O2 Delivery O2 Flow Rate FiO2 06/25/16 07:31 98.9 06/25/16 06:00 90 20 157/75 97 Room Air Procedure Note The right knee anterolateral arthroscopic port was prepped in sterile fashion with chlorhexidine swab and allowed to dry. A 25g needle was then introduced and 6 mg of betamethasone and 2 cc of 1% lidocaine were injected into the knee. The needle was then removed and the knee was cleaned of prep with an alcohol swab. Finally, a band-aid was applied to the injection site. The patient tolerated this procedure well with no complications. JUDITH DAVIDSON Jun 25, 2016 16:50
[2016-06-25 18:32] VITALS: BP 107/58
[2016-06-25] MEDS: SIMvastatin 20 MG (ZOCOR) TAB PO SCH (21:16)
[2016-06-25] MEDS: GABAPENTIN 100 MG (NEURONTIN) CAP PO SCH (21:16)
[2016-06-25] MEDS: AMITRIPTYLINE 10 MG (ELAVIL) TAB PO SCH (21:16)
[2016-06-26] MEDS: MULTIVIT W/MINERALS TAB (THERAGRAN M) PO SCH (06:22)
[2016-06-26] MEDS: HYDROcodone/APAP 5 MG/325 MG (LORTAB) TAB PO PRN ×2 (06:23→12:47)
[2016-06-26 06:45] VITALS: BP 126/77
[2016-06-26] MEDS: ENOXAPARIN 40 MG/0.4 ML (LOVENOX) SYR SC SCH (08:16)
[2016-06-26] MEDS: DOCUSATE SODIUM 100 MG (COLACE) CAP PO SCH ×2 (08:17→20:25)
[2016-06-26] MEDS: ASPIRIN E.C. 81 MG (ECOTRIN) TAB PO SCH (08:17)
[2016-06-26] MEDS: LOSARTAN 50 MG (COZAAR) TAB PO SCH (08:17)
[2016-06-26] MEDS: OMEGA 3 (FISH OIL) 1000 MG CAP PO SCH (08:17)
[2016-06-26] MEDS: VITAMIN D3 1,000 UNITS (CHOLECALCIFEROL) TABLET PO SCH (08:18)
[2016-06-26] MEDS: GABAPENTIN 100 MG (NEURONTIN) CAP PO SCH ×3 (08:18→20:25)
[2016-06-26] MEDS: GLUCOSAMINE PO SCH ×2 (08:18→20:24)
[2016-06-26] MEDS: CHONDROITIN PO SCH ×2 (08:18→20:24)
[2016-06-26] MEDS: SERTRALINE 50 MG (ZOLOFT) TABLET PO SCH (08:19)
[2016-06-26] MEDS: DICLOFENAC 1% GEL 100 GM (VOLTAREN) TUBE TOP SCH ×4 (08:19→20:25)
--- NOTE | 2016-06-26 08:33 | PM & R (SOAP) Progress Note ---
Subjective Subjective/Events-last exam Patient was seen in her room this am and reports that injection rt knee has helped with pain down.Appreciate ortho procedure note. Patient min assist for transfers Objective Exam Last Set of Vital Signs Vital Signs Date Time Temp Pulse Resp B/P Pulse Ox O2 Delivery O2 Flow Rate FiO2 06/26/16 06:45 98.7 99 18 126/77 Room Air 06/25/16 18:32 97 Capillary Refill : Less Than 3 Seconds I&O Intake and Output 06/26/16 00:00 Intake Total 1100 ml Balance 1100 ml Intake Oral 1100 ml # Voids 9 # Bowel Movements 3 General: Alert, Oriented X3, Cooperative, No Acute Distress HEENT: Atraumatic, PERRLA, EOMI, Mucous Memb Moist/[place]ck: Supple, No JVD Lungs: Other (course breath sounds left base) Heart: Regular Rate Abdomen: Normal Bowel Sounds, Soft, No Tenderness Extremities: Other (trace edema rt ankle) Neuro: Other (decreased strength rt hip) Results Lab Laboratory Tests 06/23/16 09:30: Alanine Aminotransferase (ALT/SGPT) 37, Albumin 3.4, Alkaline Phosphatase 95, Anion Gap 11, Aspartate Amino Transf (AST/SGOT) 25, BUN/Creatinine Ratio 20, Basophils # (Auto) 0.1, Basophils (%) (Auto) 1, Blood Urea Nitrogen 15, Calcium Level 8.8, Carbon Dioxide Level 25, Chloride Level 101, Creatinine 0.74, Eosinophils # (Auto) 0.5H, Eosinophils (%) (Auto) 6, Estimat Glomerular Filtration Rate > 60, Glucose Level 90, Hematocrit 34L, Hemoglobin 11.2L, Lymphocytes # (Auto) 1.6, Lymphocytes (%) (Auto) 18, Mean Corpuscular Hemoglobin 31, Mean Corpuscular Hemoglobin Concent 33, Mean Corpuscular Volume 95, Mean Platelet Volume 9.4, Monocytes # (Auto) 1.0, Monocytes (%) (Auto) 11, Neutrophils # (Auto) 5.8, Neutrophils (%) (Auto) 64, Platelet Count 241, Potassium Level 3.7, Red Blood Count 3.57L, Red Cell Distribution Width 12.8, Sodium Level 137, Total Bilirubin 0.7, Total Protein 5.9L, White Blood Count 9.1 Assessment/Plan Assessment rt hip frx s/p repair Ortho Postop anemia DJD rt knee with pain improved with injection HTN controlled DVT prophylaxis on Lovenox SQ Hyponatremia improved Plan Continue PT/OT Pain management Continue Current meds. Hyponatremia resolved.-fluid restriction d/cd Team Conference held 06-24-16-See report for full functional update and POC and STACEY ROBERTS MD Jun 26, 2016 08:33
--- NOTE | 2016-06-26 10:17 | Physical Therapy Daily Note ---
PT Daily Note-Current Subjective Pt. feels well, still having some slight pain in her right knee but had an injection last night. Pt. expresses frustration with gait training and equalizing step length Mental Status Patient Orientation: Normal For Age Transfers Functional [place] Measure 0=Not Assessed/NA 4=Minimal Assistance 1=Total Assistance 5=Supervision or Setup 2=Maximal Assistance 6=Modified [place] 3=Moderate Assistance 7=Complete IndependenceIRFPAI Quality Coding Scale 6 Independent with activity with or without an assistive device 5 Patient requires set up or clean up by helper. Patient completes activity by themselves 4 Supervision or touching assist (CGA). [place] provide cues , steadying assist 3 The helper provides less than half the effort to complete the activity 2 The helper provides more than half the effort to complete the activity 1 Dependent. The helper does all the effort to complete an activity 7 Patient refused to complete or attempt activity 9 The patient did not perform the activity before the current illness or injury 88 Not attempted due to Medical conditions or safety concerns Transfers (B, C, W/C) (FIM): 5 Scootin Rollin Supine to/from Sit: 5 Sit to/from Stand: 5 Bed to/from Chair: 5 Weight Bearing Weight Bearing Restriction: Weight Bearing/Tolerated Location Restriction: R LE Gait Training Does the Patient Walk?: Yes Gait (FIM): 5 Distance (FIM): 3=150 ft (200x3) Gait Level of Assist: 5 Gait Persons Needed: 1 Gait Assistive Device: FWW worked a great deal this date on attempt to equalize step length. pt. takes large step right foot and much less left and hag difficulty noting her antalgia and assymetry of gait Stair Training Stair Training: Handrails/: 2 handrails Stairs (FIM): 5 #of Steps: 4 Stairs: Pattern: Step to Level of Assist: 5 household exception Exercises Supine Ex: Ankle pumps, Quad Set, Rolling, Glut sets, Heel Slides, Short Arc Quads, Scooting, Straight leg raise, Hip abd/add Supine Reps: 15 Treatments TEOFILO acevedo mod to max assist Assessment Current Status: Good Progress progressing well PT Short Term Goals Short Term Goals Time Frame: Jun 29, 2016 Gait (FIM): 2 Gait Distance Comment: 50' Gait Level of Assist: 4 Gait Assistive Device: FWW Wheelchair (FIM): 4 Wheelchair Distance: 150' Wheelchair Level of Assist: 4 (cga) PT Environmental Compliance Officer Goals Jail Goals PT Environmental Compliance Officer Goals Time Frame: Jul 13, 2016 Transfers (B,C,W/C) (FIM): 5 Sit to Lying (QC): 4 Lying-Sitting on Side/Bed(QC): 4 Sit to Stand (QC): 4 Rollin Roll Left to Right (QC): 4 Chair/Mpd-id-[place] Xfer(QC): 4 Car Transfer (QC): 4 Does the Patient Walk: Yes Gait (FIM): 5 Distance: 150' Walk 10 feet (QC): 4 Walk 10ft-Uneven Surface(QC): 4 Walk 50ft with 2 Turns (QC): 4 Walk 150 ft (QC): 4 Gait Level of Assist: 5 Gait Assistive Device: FWW Wheelchair (FIM): 6 Distance: 150' Wheel 50 feet with 2 turns (QC: 6 Stairs (FIM): 2 # of Steps: 4 1 Step (curb) (QC): 4 4 Steps (QC): 4 12 Steps (QC): 88 Stairs Level Of Assist: 4 (CGA) Picking up an Object (QC): 88 PT Plan Treatment/Plan Treatment Plan: Continue Plan of Care Treatment Plan: Bed Mobility, Education, Functional Activity Anup, Functional Strength, Group Therapy, Gait, Safety, Therapeutic Exercise, Transfers Treatment Duration: Jul 13, 2016 Visits Per Week: 10-11 Minutes/Day (M-F): 60-90 Minutes/Day (Sat/Porter): 15-30 Safety Risks/Education Patient Education: Gait Training, Transfer Techniques, Steps Teaching Recipient: Patient Teaching Methods: Demonstration, Discussion Response to Teaching: Verbalize Understanding, Return Demonstration, Reinforcement Needed Time/GCodes Time In: 915 Time Out: 1015 Total Billed Treatment Time: 60 Total Billed Treatment 1,GT40,EX20 G Codes Necessary: BRITTON Pfeiffer PACKAGE DELIVERY ROOM SERVICE RUNNER Jun 26, 2016 10:17
--- NOTE | 2016-06-26 10:23 | Occupational Ther Daily Note ---
OT Current Status-Daily Note Subjective Pt alert, sitting in recliner. Pt agreed to therapy. Pt stated that she felt really good today. Pt stated that she got a shot in her knee last night. Mental Status/Objective Patient Orientation: Person, Place, Time, Situation Functional [place] Measure 0=Not Assessed/NA 4=Minimal Assistance 1=Total Assistance 5=Supervision or Setup 2=Maximal Assistance 6=Modified [place] 3=Moderate Assistance 7=Complete [place] ADL-Treatment Pt used FWW to retrieve clothing and ambulate to bathroom with SBA. Pt combed hair while sitting in recliner. After therapy, pt sitting in recliner with call light/phone in reach. All needs met in room. Functional [place] Measure 0=Not Assessed/NA 4=Minimal Assistance 1=Total Assistance 5=Supervision or Setup 2=Maximal Assistance 6=Modified [place] 3=Moderate Assistance 7=Complete IndependenceIRFPAI Quality Coding Scale 6 Independent with activity with or without an assistive device 5 Patient requires set up or clean up by helper. Patient completes activity by themselves 4 Supervision or touching assist (CGA). [place] provide cues , steadying assist 3 The helper provides less than half the effort to complete the activity 2 The helper provides more than half the effort to complete the activity 1 Dependent. The helper does all the effort to complete an activity 7 Patient refused to complete or attempt activity 9 The patient did not perform the activity before the current illness or injury 88 Not attempted due to Medical conditions or safety concerns Bathing (FIM): 5 (Using hand held shower, grabbar, long handle sponge and bench pt is able to complete bathing with SBA when standing to cleanse radha area and buttocks.) Bathing Location: L Arm, R Arm, L Upper Leg, R Upper Leg, L Lower Leg ( including foot), R Lower Leg (including foot), Chest, Abdomen, Buttocks, Perineal Area Upper Body (FIM): 5 (Using FWW, pt retrieved clothes with 1 LOB and steadied self with FWW and dressed with SBA.) Lower Body Dressing (FIM): 5 (Using FWW, pt retrieved clothes with 1 LOB and steadied self with FWW and dressed with SBA using AE to adhere to hip precautions.) Toileting (FIM): 5 (Using FWW and grabbar, pt is able to complete with supervision.) Transfers (B, C, W/C) (FIM): 5 (Using FWW, pt is able to complete with SBA.) Toilet/Commode Transfer (FIM): 5 (Using FWW and grabbars, pt is able to complete with SBA.) Shower Transfer(FIM): 5 (Using FWW, grabbar and bench pt is able to complete with SBA.) OT Short Term Goals Short Term Goals Time Frame: Jun 29, 2016 Bathing(FIM): 4 (met-06/26/16) Lower Body Dressing(FIM): 3 (met-06/26/16) Toileting(FIM): 3 (met-06/26/16) Tub Transfer(FIM): 4 (CGA) Additional Short Term Goals: 1-Demonstrate ADL Tasks, 2-Verbalize Understanding , 3-ImproveStrength/Anup 1=Demonstrate adherence to instructed precautions during ADL tasks. 2=Patient will verbalize/demonstrate understanding of assistive devices/ modifications for ADL. 3=Patient will improve strength/tolerance for activity to enable patient to perform ADL's. OT Prison Goals Director Of Mobile Marketing Goals Time Frame: Jul 13, 2016 Eating (FIM): 6 Eating (QC): 6 Oral Hygiene (QC): 6 Grooming(FIM): 6 Bathing(FIM): 5 (met-06/26/16) Shower/Bathe Self (QC): 5 Upper Body Dressing(FIM): 6 Upper Body Dressing (QC): 6 Lower Body Dressing(FIM): 5 Lower Body Dressing (QC): 5 On/Off Footwear (QC): 6 Toileting(FIM): 5 (met-06/26/16) Toileting Hygiene (QC): 5 Toilet/Commode Transfer(FIM): 6 Toilet/Commode Transfer (QC): 6 Shower Transfer(FIM): 5 (met-06/26/16) Additional Goals: 1-Demonstrate ADL Tasks, 2-Verbalize Understanding, 3- ImproveStrength/Anup 1=Demonstrate adherence to instructed precautions during ADL tasks. 2=Patient will verbalize/demonstrate understanding of assistive devices/ modifications for ADL. 3=Patient will improve strength/tolerance for activity to enable patient to perform ADL's. OT Education/Plan Problem List/Assessment Pt to benefit from skilled OT intervention for ADL training, transfers, strengthening, and adaptive equipment education to maximize level of function and allow safe discharge. Discharge Recommendations Plan/Recommendations: Continue POC Treatment Plan/Plan of Care Patient would benefit from OT for education, treatment and training to promote independence in ADL's, mobility, safety and/or upper extremity function for ADL' s. Plan of Care: ADL Retraining, Functional Mobility, Group Exercise/Act as Ind, UE Funct Exercise/Act Treatment Duration: Jul 13, 2016 Visits Per Week: 10-11 Minutes/Day (M-F): 60-90 Minutes/Day (Sat/Porter): PRN Agreement: Yes Rehab Potential: Fair Time/GCodes Start Time: 08:00 Stop Time: 09:00 Total Time Billed (hr/min): 60 Billed Treatment Time 1 visit-ADL 4 (60 min) GINI DELONG Jun 26, 2016 10:23
--- NOTE | 2016-06-26 14:19 | Physician Query-General Query ---
Physician Query-General Query to Physician: IP stay indicated a rt subcapital hip fracture. Please clarify whether or not this is correct. See Progress note 06/30/16 PHYSICIAN RESPONSE: Based on the clinical findings in the record, please respond to the query above on this document as an addendum. Possible, probable, or questionable diagnosis can be coded for INPATIENTS ONLY. Physician Response: See progress note 06/30/16 Physician Response See progress note 07/01/16 If you have questions please contact: Machine Set Up: Stephanie Ext: [phone] Thank you for your time and cooperation. Clinical Secretary Of Police/Machine Set Up This is a permanent part of the medical record STEPHANIE ALLEN Jun 26, 2016 14:19 STACEY DUMONT MD Jun 30, 2016 12:00
--- NOTE | 2016-06-26 14:57 | Therapy Group Daily Note ---
Therapy Daily Group Note Exercises Fine Motor, Other (dynamic core stability, reaching) Other/Notes Pt. attended PT OT group this date. Pt. ambulated to and from with SBA FWW . Socialization was initiated through introductions and conversation. This pt. was thrilled to attend a social gathering and expressed herself well as well as encouraging others. She was stimulated cognitively by the challenge of the [employer] game and demonstrated that it challenged her critical thinking skills and problem solving . Pt smiled, laughed and was pleasant with everyone. Pt. shared a one word encouragement to others at end..."michelle". Pt. to room after group . Settled in bed, joshi at hand Start Time: 13:00 Stop Time: 14:00 Total Billed Treatment Time: 60 Total Billed Treatment 1,GRP BRITTON GALLARDO REQUISITION APPROVER Jun 26, 2016 14:56
[2016-06-26 18:14] VITALS: BP 121/64
[2016-06-26] MEDS: AMITRIPTYLINE 10 MG (ELAVIL) TAB PO SCH (20:25)
[2016-06-26] MEDS: SIMvastatin 20 MG (ZOCOR) TAB PO SCH (20:25)
[2016-06-27 06:00] VITALS: BP 150/79
[2016-06-27] MEDS: HYDROcodone/APAP 5 MG/325 MG (LORTAB) TAB PO PRN ×3 (06:43→19:59)
[2016-06-27] MEDS: MULTIVIT W/MINERALS TAB (THERAGRAN M) PO SCH (06:43)
[2016-06-27] MEDS: DOCUSATE SODIUM 100 MG (COLACE) CAP PO SCH ×2 (09:00→19:58)
[2016-06-27] MEDS: ASPIRIN E.C. 81 MG (ECOTRIN) TAB PO SCH (09:02)
[2016-06-27] MEDS: LOSARTAN 50 MG (COZAAR) TAB PO SCH (09:02)
[2016-06-27] MEDS: GABAPENTIN 100 MG (NEURONTIN) CAP PO SCH ×3 (09:02→19:58)
[2016-06-27] MEDS: OMEGA 3 (FISH OIL) 1000 MG CAP PO SCH (09:02)
[2016-06-27] MEDS: ENOXAPARIN 40 MG/0.4 ML (LOVENOX) SYR SC SCH (09:02)
[2016-06-27] MEDS: VITAMIN D3 1,000 UNITS (CHOLECALCIFEROL) TABLET PO SCH (09:02)
[2016-06-27] MEDS: CHONDROITIN PO SCH ×2 (09:03→20:07)
[2016-06-27] MEDS: SERTRALINE 50 MG (ZOLOFT) TABLET PO SCH (09:03)
[2016-06-27] MEDS: DICLOFENAC 1% GEL 100 GM (VOLTAREN) TUBE TOP SCH ×4 (09:03→20:07)
[2016-06-27] MEDS: GLUCOSAMINE PO SCH ×2 (09:03→20:07)
--- NOTE | 2016-06-27 11:21 | Physical Therapy Daily Note ---
PT Daily Note-Current Subjective Agrees to PT and wants to walk. Reports her right hip is stiff today. Pain Numeric Pain Scale: 4 Location: Right Location Body Site: Hip ("stiff") Comment: Pt requested and took pain meds Mental Status Patient Orientation: Person, Place, Time, Situation Transfers Functional [place] Measure 0=Not Assessed/NA 4=Minimal Assistance 1=Total Assistance 5=Supervision or Setup 2=Maximal Assistance 6=Modified [place] 3=Moderate Assistance 7=Complete IndependenceIRFPAI Quality Coding Scale 6 Independent with activity with or without an assistive device 5 Patient requires set up or clean up by helper. Patient completes activity by themselves 4 Supervision or touching assist (CGA). [place] provide cues , steadying assist 3 The helper provides less than half the effort to complete the activity 2 The helper provides more than half the effort to complete the activity 1 Dependent. The helper does all the effort to complete an activity 7 Patient refused to complete or attempt activity 9 The patient did not perform the activity before the current illness or injury 88 Not attempted due to Medical conditions or safety concerns SBA with sit to from stand transfer; tends to drop into chair when sitting; acknowledged understanding when cued not to do so. Gait Training Gait (FIM): 5 Distance (FIM): 3=150 ft Gait Assistive Device: FWW Pt ambulated x 250 ft with FWW with SBA. Pt stood at nurses desk with SBA to request pain meds then able to turn and return to room. Exercises Seated Therapy Exercises: Ankle pumps, Long arc quads, Hamstring Curls, Hip abd /add Seated Reps: 10 (ther ex for functional strength to promote mod indep gait and transfers) Assessment Current Status: Good Progress Pt making functional gains and needs very little assist with functional mobility. PT Short Term Goals Short Term Goals Time Frame: Jun 29, 2016 Gait (FIM): 2 (met 06/27/16) Gait Distance Comment: 50' Gait Level of Assist: 4 Gait Assistive Device: FWW Wheelchair (FIM): 4 Wheelchair Distance: 150' Wheelchair Level of Assist: 4 (cga) PT Long-Term Goals Certified Ophthalmic Medical Technician Goals PT Certified Ophthalmic Medical Technician Goals Time Frame: Jul 13, 2016 Transfers (B,C,W/C) (FIM): 5 Sit to Lying (QC): 4 Lying-Sitting on Side/Bed(QC): 4 Sit to Stand (QC): 4 Rollin Roll Left to Right (QC): 4 Chair/Peb-rw-Uvmyh Xfer(QC): 4 Car Transfer (QC): 4 Does the Patient Walk: Yes Gait (FIM): 5 Distance: 150' Walk 10 feet (QC): 4 Walk 10ft-Uneven Surface(QC): 4 Walk 50ft with 2 Turns (QC): 4 Walk 150 ft (QC): 4 Gait Level of Assist: 5 Gait Assistive Device: FWW Wheelchair (FIM): 6 Distance: 150' Wheel 50 feet with 2 turns (QC: 6 Stairs (FIM): 2 # of Steps: 4 1 Step (curb) (QC): 4 4 Steps (QC): 4 12 Steps (QC): 88 Stairs Level Of Assist: 4 (CGA) Picking up an Object (QC): 88 PT Plan Problem List Problem List: Activity Tolerance, Functional Strength, Safety, Balance, Gait, Transfer Treatment/Plan Treatment Plan: Continue Plan of Care Treatment Plan: Bed Mobility, Education, Functional Activity Anup, Functional Strength, Group Therapy, Gait, Safety, Therapeutic Exercise, Transfers Treatment Duration: Jul 13, 2016 Visits Per Week: 10-11 Minutes/Day (M-F): 60-90 Minutes/Day (Sat/Porter): 15-30 Safety Risks/Education Patient Education: Transfer Techniques, Safety Issues Teaching Recipient: Patient Teaching Methods: Discussion Response to Teaching: Verbalize Understanding Time/GCodes Time In: 1058 Time Out: 1121 Total Billed Treatment Time: 23 Total Billed Treatment visit EX 10 GT 13 GINI ACEVES PT Jun 27, 2016 11:21
[2016-06-27 18:50] VITALS: BP 116/57
[2016-06-27] MEDS: SIMvastatin 20 MG (ZOCOR) TAB PO SCH (19:58)
[2016-06-27] MEDS: AMITRIPTYLINE 10 MG (ELAVIL) TAB PO SCH (19:58)
[2016-06-28] MEDS: HYDROcodone/APAP 5 MG/325 MG (LORTAB) TAB PO PRN ×2 (01:47→19:53)
[2016-06-28 04:01] VITALS: BP 116/72
[2016-06-28] MEDS: MULTIVIT W/MINERALS TAB (THERAGRAN M) PO SCH (06:24)
[2016-06-28] MEDS: OMEGA 3 (FISH OIL) 1000 MG CAP PO SCH (08:40)
[2016-06-28] MEDS: LOSARTAN 50 MG (COZAAR) TAB PO SCH (08:40)
[2016-06-28] MEDS: ASPIRIN E.C. 81 MG (ECOTRIN) TAB PO SCH (08:40)
[2016-06-28] MEDS: ENOXAPARIN 40 MG/0.4 ML (LOVENOX) SYR SC SCH (08:40)
[2016-06-28] MEDS: VITAMIN D3 1,000 UNITS (CHOLECALCIFEROL) TABLET PO SCH (08:41)
[2016-06-28] MEDS: SERTRALINE 50 MG (ZOLOFT) TABLET PO SCH (08:41)
[2016-06-28] MEDS: GABAPENTIN 100 MG (NEURONTIN) CAP PO SCH ×3 (08:41→19:53)
[2016-06-28] MEDS: GLUCOSAMINE PO SCH ×2 (08:42→19:54)
[2016-06-28] MEDS: CHONDROITIN PO SCH ×2 (08:42→19:54)
[2016-06-28] MEDS: DOCUSATE SODIUM 100 MG (COLACE) CAP PO SCH ×2 (08:43→19:53)
[2016-06-28] MEDS: DICLOFENAC 1% GEL 100 GM (VOLTAREN) TUBE TOP SCH ×4 (08:45→19:55)
[2016-06-28 18:13] VITALS: BP 131/74
[2016-06-28] MEDS: SIMvastatin 20 MG (ZOCOR) TAB PO SCH (19:54)
[2016-06-28] MEDS: AMITRIPTYLINE 10 MG (ELAVIL) TAB PO SCH (19:54)
[2016-06-28] MEDS: ACETAMINOPHEN 500 MG TAB (TYLENOL) PO PRN (21:12)
[2016-06-29 05:45] VITALS: BP 130/68
[2016-06-29] MEDS: MULTIVIT W/MINERALS TAB (THERAGRAN M) PO SCH (06:14)
--- NOTE | 2016-06-29 08:15 | Physical Therapy Daily Note ---
PT Daily Note-Current Subjective Pt. states she is doing well . States however that she has had some discomfort in her incisional area ans will be checked by today to see if she has an incisional infection. Pt. is ready to do therapy and wants a written illustrated guide to follow in her down time Mental Status Patient Orientation: Normal For Age Transfers Functional [place] Measure 0=Not Assessed/NA 4=Minimal Assistance 1=Total Assistance 5=Supervision or Setup 2=Maximal Assistance 6=Modified [place] 3=Moderate Assistance 7=Complete IndependenceIRFPAI Quality Coding Scale 6 Independent with activity with or without an assistive device 5 Patient requires set up or clean up by helper. Patient completes activity by themselves 4 Supervision or touching assist (CGA). [place] provide cues , steadying assist 3 The helper provides less than half the effort to complete the activity 2 The helper provides more than half the effort to complete the activity 1 Dependent. The helper does all the effort to complete an activity 7 Patient refused to complete or attempt activity 9 The patient did not perform the activity before the current illness or injury 88 Not attempted due to Medical conditions or safety concerns Transfers (B, C, W/C) (FIM): 6 Scootin Rollin Supine to/from Sit: 6 Sit to/from Stand: 6 Bed to/from Chair: 6 needs cues only to use hands as sit to stand and stand to sit Gait Training Does the Patient Walk?: Yes Gait (FIM): 6 Distance (FIM): 3=150 ft (250x2) Gait Level of Assist: 6 Gait Persons Needed: 0 Gait Assistive Device: FWW worked a grea deal on equal step length and the need to lay down flat in bed during the day for the sake of hip extension to feed into equal step length etc Stair Training Stair Training: Handrails/: 2 handrails Stairs (FIM): 5 #of Steps: 8 Stairs: Pattern: Step to Level of Assist: 5 needs cues for sequence at times Exercises Supine Ex: Ankle pumps, Quad Set, Rolling, Glut sets, Heel Slides, Short Arc Quads, Scooting, Straight leg raise (w assist), Hip abd/add Supine Reps: 12 Seated Therapy Exercises: Ankle pumps, Sit to stand, Long arc quads, Hip abd/ add Seated Reps: 12 Standing: Hip Abduction, Hamstring curls, Heel/toe raises, Mini squats Standing Reps: 12 NuStep Minutes: 10 NuStep Workload: 2 Assessment Current Status: Excellent Progress near being up graded to up ad hua PT Short Term Goals Short Term Goals Time Frame: Jun 29, 2016 Gait (FIM): 2 (met 06/27/16) Gait Distance Comment: 50' Gait Level of Assist: 4 Gait Assistive Device: FWW Wheelchair (FIM): 4 Wheelchair Distance: 150' Wheelchair Level of Assist: 4 (cga) PT Milk House Worker Goals Milk House Worker Goals PT [facility] Goals Time Frame: Jul 13, 2016 Transfers (B,C,W/C) (FIM): 5 Sit to Lying (QC): 4 Lying-Sitting on Side/Bed(QC): 4 Sit to Stand (QC): 4 Rollin Roll Left to Right (QC): 4 Chair/Kjg-iq-Vxgeu Xfer(QC): 4 Car Transfer (QC): 4 Does the Patient Walk: Yes Gait (FIM): 5 Distance: 150' Walk 10 feet (QC): 4 Walk 10ft-Uneven Surface(QC): 4 Walk 50ft with 2 Turns (QC): 4 Walk 150 ft (QC): 4 Gait Level of Assist: 5 Gait Assistive Device: FWW Wheelchair (FIM): 6 Distance: 150' Wheel 50 feet with 2 turns (QC: 6 Stairs (FIM): 2 # of Steps: 4 1 Step (curb) (QC): 4 4 Steps (QC): 4 12 Steps (QC): 88 Stairs Level Of Assist: 4 (CGA) Picking up an Object (QC): 88 PT Plan Treatment/Plan Treatment Plan: Continue Plan of Care Treatment Plan: Bed Mobility, Education, Functional Activity Anup, Functional Strength, Group Therapy, Gait, Safety, Therapeutic Exercise, Transfers Treatment Duration: Jul 13, 2016 Visits Per Week: 10-11 Minutes/Day (M-F): 60-90 Minutes/Day (Sat/Porter): 15-30 Safety Risks/Education Patient Education: Gait Training, Transfer Techniques, Steps, Correct Positioning, W/C Management, Disease Process, Safety Issues Teaching Recipient: Patient Teaching Methods: Demonstration, Discussion Response to Teaching: Verbalize Understanding, Return Demonstration, Reinforcement Needed Time/GCodes Time In: 715 Time Out: 815 Total Billed Treatment Time: 60 Total Billed Treatment 1,FA15,GT20,EX25 G Codes Necessary: BRITTON Pfeiffer MOVIE PRODUCER Jun 29, 2016 08:15
--- NOTE | 2016-06-29 08:28 | Progress Note-Hospitalist ---
Progress Note Progress Notes/Assess & Plan Date Seen 06/29/16 Diagonsis/Assessment & Plan Patient Interview: Pt has been ambulating. Physical exam was stable. Pt states that she is no longer taking bowel meds because she is having regular BMs. Pt is still taking breathing treatments. DC planned for near future AFVSS, [place], O x 3 RRR, CTAB only subtle coarseness No edema Assessment: acute right hip fracture s/p repair with debility Hypertension Coarse breath sounds much improved on Nebs Anxiety Plan: DC home soon Continue breathing treatments while in-pt STEWART RASHEED DO Jun 29, 2016 08:27
[2016-06-29] MEDS: LOSARTAN 50 MG (COZAAR) TAB PO SCH (08:42)
[2016-06-29] MEDS: GABAPENTIN 100 MG (NEURONTIN) CAP PO SCH ×3 (08:42→20:32)
[2016-06-29] MEDS: SERTRALINE 50 MG (ZOLOFT) TABLET PO SCH (08:42)
[2016-06-29] MEDS: ASPIRIN E.C. 81 MG (ECOTRIN) TAB PO SCH (08:42)
[2016-06-29] MEDS: VITAMIN D3 1,000 UNITS (CHOLECALCIFEROL) TABLET PO SCH (08:42)
[2016-06-29] MEDS: ENOXAPARIN 40 MG/0.4 ML (LOVENOX) SYR SC SCH (08:42)
[2016-06-29] MEDS: OMEGA 3 (FISH OIL) 1000 MG CAP PO SCH (08:42)
[2016-06-29] MEDS: CHONDROITIN PO SCH ×2 (08:45→20:32)
[2016-06-29] MEDS: GLUCOSAMINE PO SCH ×2 (08:45→20:32)
[2016-06-29] MEDS: DOCUSATE SODIUM 100 MG (COLACE) CAP PO SCH ×2 (08:45→20:32)
[2016-06-29] MEDS: DICLOFENAC 1% GEL 100 GM (VOLTAREN) TUBE TOP SCH ×4 (08:46→20:33)
[2016-06-29] MEDS: HYDROcodone/APAP 5 MG/325 MG (LORTAB) TAB PO PRN (09:04)
--- NOTE | 2016-06-29 11:46 | Physical Therapy Daily Note ---
PT Daily Note-Current Subjective Happy to have HEP, understands all that she reads. Pt. states that yesterday she felt some discomfort in her right hip, she felt was incisional.Pt. stats that discomfort is gone today and she feels perhaps she sat in one place too long yesterday. This SHIPPING WEIGHER observed incision site Appearance right hip incision observed, steri strips entact and no redness or swelling Transfers Functional [place] Measure 0=Not Assessed/NA 4=Minimal Assistance 1=Total Assistance 5=Supervision or Setup 2=Maximal Assistance 6=Modified [place] 3=Moderate Assistance 7=Complete IndependenceIRFPAI Quality Coding Scale 6 Independent with activity with or without an assistive device 5 Patient requires set up or clean up by helper. Patient completes activity by themselves 4 Supervision or touching assist (CGA). [place] provide cues , steadying assist 3 The helper provides less than half the effort to complete the activity 2 The helper provides more than half the effort to complete the activity 1 Dependent. The helper does all the effort to complete an activity 7 Patient refused to complete or attempt activity 9 The patient did not perform the activity before the current illness or injury 88 Not attempted due to Medical conditions or safety concerns Exercises Supine Ex: Ankle pumps, Quad Set, Glut sets, Heel Slides, Short Arc Quads, Hip abd/add Supine Reps: 5 pt. was given written illustrated exercise program, pt. demonstrated that she could do all the exercises per program with good technique Assessment Current Status: Good Progress PT Short Term Goals Short Term Goals Time Frame: Jun 29, 2016 Gait (FIM): 2 (met 06/27/16) Gait Distance Comment: 50' Gait Level of Assist: 4 Gait Assistive Device: FWW Wheelchair (FIM): 4 Wheelchair Distance: 150' Wheelchair Level of Assist: 4 (cga) PT Applications Engineering Manager Goals Penitentiary Goals PT Penitentiary Goals Time Frame: Jul 13, 2016 Transfers (B,C,W/C) (FIM): 5 Sit to Lying (QC): 4 Lying-Sitting on Side/Bed(QC): 4 Sit to Stand (QC): 4 Rollin Roll Left to Right (QC): 4 Chair/Qmo-uc-Gymzx Xfer(QC): 4 Car Transfer (QC): 4 Does the Patient Walk: Yes Gait (FIM): 5 Distance: 150' Walk 10 feet (QC): 4 Walk 10ft-Uneven Surface(QC): 4 Walk 50ft with 2 Turns (QC): 4 Walk 150 ft (QC): 4 Gait Level of Assist: 5 Gait Assistive Device: FWW Wheelchair (FIM): 6 Distance: 150' Wheel 50 feet with 2 turns (QC: 6 Stairs (FIM): 2 # of Steps: 4 1 Step (curb) (QC): 4 4 Steps (QC): 4 12 Steps (QC): 88 Stairs Level Of Assist: 4 (CGA) Picking up an Object (QC): 88 PT Plan Treatment/Plan Treatment Plan: Continue Plan of Care Treatment Plan: Bed Mobility, Education, Functional Activity Anup, Functional Strength, Group Therapy, Gait, Safety, Therapeutic Exercise, Transfers Treatment Duration: Jul 13, 2016 Visits Per Week: 10-11 Minutes/Day (M-F): 60-90 Minutes/Day (Sat/Porter): 15-30 Safety Risks/Education Patient Education: Issued Written HEP Teaching Recipient: Patient Teaching Methods: Demonstration, Discussion Response to Teaching: Verbalize Understanding, Return Demonstration, Reinforcement Needed Time/GCodes Time In: 1130 Time Out: 1150 Total Billed Treatment Time: 20 Total Billed Treatment 1,EX20m G Codes Necessary: BRITTON Pfefifer SHIPPING WEIGHER Jun 29, 2016 11:46
--- NOTE | 2016-06-29 13:44 | Occupational Ther Daily Note ---
OT Current Status-Daily Note Subjective Pt sitting in chair, agrees to treatment. Pt reports 7/10 right hip pain, RN provided pain medication Mental Status/Objective Functional [place] Measure 0=Not Assessed/NA 4=Minimal Assistance 1=Total Assistance 5=Supervision or Setup 2=Maximal Assistance 6=Modified [place] 3=Moderate Assistance 7=Complete [place] ADL-Treatment Pt sit to stand with modified independence. Pt retrieved clothing from closet with SBA using FWW for balance. Gait to restroom with FWW, no LOB noted. Toilet transfer completed with SBA. Pt able to perform toileting hygiene and clothing management with SBA. Pt doffed clothing with SBA, uses dressing stick to doff socks and pants. Transfer to walk in shower with skilled cues for safety. Pt able to wash/dry all areas with SBA. Pt uses long handled sponge to wash lower legs and feet. Don bra and shirt with set up. Pt donned underwear and pants with SBA using dressing stick to start over feet. Stood with supervision for balance during pant hike. Don socks with set up using sock aid. Pt combed hair with modified independence while seated. Increased time for ADL tasks. Functional [place] Measure 0=Not Assessed/NA 4=Minimal Assistance 1=Total Assistance 5=Supervision or Setup 2=Maximal Assistance 6=Modified [place] 3=Moderate Assistance 7=Complete IndependenceIRFPAI Quality Coding Scale 6 Independent with activity with or without an assistive device 5 Patient requires set up or clean up by helper. Patient completes activity by themselves 4 Supervision or touching assist (CGA). [place] provide cues , steadying assist 3 The helper provides less than half the effort to complete the activity 2 The helper provides more than half the effort to complete the activity 1 Dependent. The helper does all the effort to complete an activity 7 Patient refused to complete or attempt activity 9 The patient did not perform the activity before the current illness or injury 88 Not attempted due to Medical conditions or safety concerns Grooming (FIM): 6 Bathing (FIM): 5 Upper Body (FIM): 5 Lower Body Dressing (FIM): 5 Toileting (FIM): 5 Toilet/Commode Transfer (FIM): 5 Shower Transfer(FIM): 5 Other Treatment Pt completed graded clothespin activity with bilateral hands to increase radio engineering teacher/ pinch strength needed for ADLs. Pt transferred to EOB and completed sit to supine with SBA. Pt in bed with needs met after session. OT Short Term Goals Short Term Goals Time Frame: Jun 29, 2016 Bathing(FIM): 4 (met-06/26/16) Lower Body Dressing(FIM): 3 (met-06/26/16) Toileting(FIM): 3 (met-06/26/16) Tub Transfer(FIM): 4 (CGA) Additional Short Term Goals: 1-Demonstrate ADL Tasks, 2-Verbalize Understanding , 3-ImproveStrength/Anup 1=Demonstrate adherence to instructed precautions during ADL tasks. 2=Patient will verbalize/demonstrate understanding of assistive devices/ modifications for ADL. 3=Patient will improve strength/tolerance for activity to enable patient to perform ADL's. OT Lithographic Proofer Goals Lithographic Proofer Goals Time Frame: Jul 13, 2016 Eating (FIM): 6 Eating (QC): 6 Oral Hygiene (QC): 6 Grooming(FIM): 6 Bathing(FIM): 5 (met-06/26/16) Shower/Bathe Self (QC): 5 Upper Body Dressing(FIM): 6 Upper Body Dressing (QC): 6 Lower Body Dressing(FIM): 5 Lower Body Dressing (QC): 5 On/Off Footwear (QC): 6 Toileting(FIM): 5 (met-06/26/16) Toileting Hygiene (QC): 5 Toilet/Commode Transfer(FIM): 6 Toilet/Commode Transfer (QC): 6 Shower Transfer(FIM): 5 (met-06/26/16) Additional Goals: 1-Demonstrate ADL Tasks, 2-Verbalize Understanding, 3- ImproveStrength/Anup 1=Demonstrate adherence to instructed precautions during ADL tasks. 2=Patient will verbalize/demonstrate understanding of assistive devices/ modifications for ADL. 3=Patient will improve strength/tolerance for activity to enable patient to perform ADL's. OT Education/Plan Problem List/Assessment Pt to benefit from skilled OT intervention for ADL training, transfers, strengthening, and adaptive equipment education to maximize level of function and allow safe discharge. Discharge Recommendations Plan/Recommendations: Continue POC Treatment Plan/Plan of Care Patient would benefit from OT for education, treatment and training to promote independence in ADL's, mobility, safety and/or upper extremity function for ADL' s. Plan of Care: ADL Retraining, Functional Mobility, Group Exercise/Act as Ind, UE Funct Exercise/Act Treatment Duration: Jul 13, 2016 Visits Per Week: 10-11 Minutes/Day (M-F): 60-90 Minutes/Day (Sat/Porter): PRN Agreement: Yes Rehab Potential: Fair Time/GCodes Start Time: 09:00 Stop Time: 10:00 Total Time Billed (hr/min): 60 Billed Treatment Time 1 visit, ADLx3(50minutes), EX(10minutes) SHAWN WHITEHEAD OT Jun 29, 2016 13:44
--- NOTE | 2016-06-29 15:13 | Therapy Group Daily Note ---
Therapy Daily Group Note Patient Education Topic Other List Below (transfer techniques, transfer equipment, utilizing theraband) Exercises LE Seated Exercise, UE Exercise Other/Notes Pt. attended group PT OT session. Pt. ambulated SBA to/from group. Pt. was very friendly, big smile and joined in all conversation well. Education topic focused on transfer techniques including sup to sit to stand as well as rolling and utilizing TRF equipment. Pt. was assisted to use theraband for Upper and lower extremity seated exercises. Pt. added to conversation about fears and how to conquer them. Pt. was SBAto room after group Start Time: 13:00 Stop Time: 14:20 Total Billed Treatment Time: 80 Total Billed Treatment 1,GRP BRITTON GALLARDO FRENCH WEAVER Jun 29, 2016 15:13
[2016-06-29] MEDS: ACETAMINOPHEN 500 MG TAB (TYLENOL) PO PRN ×2 (15:50→20:36)
[2016-06-29 18:00] VITALS: BP 114/68
--- NOTE | 2016-06-29 19:08 | PM & R (SOAP) Progress Note ---
Subjective Subjective/Events-last exam Patient was seen in her room this evening Patient Modified Independent for transfers Objective Exam Last Set of Vital Signs Vital Signs Date Time Temp Pulse Resp B/P Pulse Ox O2 Delivery O2 Flow Rate FiO2 06/29/16 09:00 Room Air 06/29/16 05:45 98.4 79 16 130/68 99 Capillary Refill : Less Than 3 Seconds I&O Intake and Output 06/29/16 00:00 Intake Total 1430 ml Output Total 1 ml Balance 1429 ml Intake Oral 1430 ml Stool Total 1 ml # Voids 7 # Bowel Movements 1 General: Alert, Oriented X3, Cooperative, No Acute Distress HEENT: Atraumatic, PERRLA, EOMI, Mucous Memb Moist/[place] Neck: Supple, No JVD Lungs: Other (course breath sounds left base) Heart: Regular Rate Abdomen: Normal Bowel Sounds, Soft, No Tenderness Extremities: Other (trace edema rt ankle) Neuro: Other (decreased strength rt hip) Assessment/Plan Assessment rt hip frx s/p repair Ortho Postop anemia DJD rt knee with pain improved with injection HTN controlled DVT prophylaxis on Lovenox SQ Hyponatremia improved Plan Continue PT/OT Pain management Continue Current meds. Hyponatremia resolved.-fluid restriction d/cd Team Conference to be held 07-01-16 Proabable discharge by end of week STACEY DUMONT MD Jun 29, 2016 19:08
[2016-06-29] MEDS: SIMvastatin 20 MG (ZOCOR) TAB PO SCH (20:32)
[2016-06-29] MEDS: AMITRIPTYLINE 10 MG (ELAVIL) TAB PO SCH (20:32)
[2016-06-30] MEDS: HYDROcodone/APAP 5 MG/325 MG (LORTAB) TAB PO PRN ×2 (05:41→20:09)
[2016-06-30] MEDS: MULTIVIT W/MINERALS TAB (THERAGRAN M) PO SCH (05:41)
[2016-06-30 05:43] VITALS: BP 134/79
--- NOTE | 2016-06-30 08:22 | Physical Therapy Daily Note ---
PT Daily Note-Current Subjective Pt. states she has had night time pain in her right knee. States this is not a new problem, asks that Voltaren cream be applied. This was done per nurse ok. Pt. has no c/o pain today. Pain Numeric Pain Scale: 0-No Pain Mental Status Patient Orientation: Normal For Age Transfers Functional [place] Measure 0=Not Assessed/NA 4=Minimal Assistance 1=Total Assistance 5=Supervision or Setup 2=Maximal Assistance 6=Modified [place] 3=Moderate Assistance 7=Complete IndependenceIRFPAI Quality Coding Scale 6 Independent with activity with or without an assistive device 5 Patient requires set up or clean up by helper. Patient completes activity by themselves 4 Supervision or touching assist (CGA). [place] provide cues , steadying assist 3 The helper provides less than half the effort to complete the activity 2 The helper provides more than half the effort to complete the activity 1 Dependent. The helper does all the effort to complete an activity 7 Patient refused to complete or attempt activity 9 The patient did not perform the activity before the current illness or injury 88 Not attempted due to Medical conditions or safety concerns Transfers (B, C, W/C) (FIM): 6 Scootin Rollin Roll Left to Right (QC): 6 Supine to/from Sit: 6 Sit to/from Stand: 6 Sit to Lying (QC): 6 Sit to Stand (QC): 6 Chair/Xnu-ov-Wuquv Xfer(QC): 6 Bed to/from Chair: 6 simulated car transfer in gym using bolsters and step stools pt. TRFs psuedo SBA Gait Training Does the Patient Walk?: Yes Gait (FIM): 6 Distance (FIM): 3=150 ft (250x2) Walk 10 feet (QC): 5 Gait Level of Assist: 6 Gait Persons Needed: 0 Gait Assistive Device: FWW continues with uneven step length but improved, slight toe in and cues to align this more nuetral Wheelchair Training Does the Pt Use a Wheelchair?: No Stair Training Stair Training: Handrails/: 2 handrails Stairs (FIM): 5 #of Steps: 8 Stairs: Pattern: Step to Level of Assist: 5 household exception Exercises Standing: Hip Abduction, Hamstring curls, Heel/toe raises, 3 way Ex=Flex, Abd, Ext, Sit to Stand Standing Reps: 15 Treatments see psuedo car TRFs, reviewed HEP as well as review of THR precautions Assessment Current Status: Excellent Progress PT Short Term Goals Short Term Goals Time Frame: Jun 29, 2016 Gait (FIM): 2 (met 06/27/16) Gait Distance Comment: 50' Gait Level of Assist: 4 Gait Assistive Device: FWW Wheelchair (FIM): 4 Wheelchair Distance: 150' Wheelchair Level of Assist: 4 (cga) PT Engineer Assistant Goals Residential Goals PT Residential Goals Time Frame: Jul 13, 2016 Transfers (B,C,W/C) (FIM): 5 Sit to Lying (QC): 4 Lying-Sitting on Side/Bed(QC): 4 Sit to Stand (QC): 4 Rollin Roll Left to Right (QC): 4 Chair/Mih-ir-Owdol Xfer(QC): 4 Car Transfer (QC): 4 Does the Patient Walk: Yes Gait (FIM): 5 Distance: 150' Walk 10 feet (QC): 4 Walk 10ft-Uneven Surface(QC): 4 Walk 50ft with 2 Turns (QC): 4 Walk 150 ft (QC): 4 Gait Level of Assist: 5 Gait Assistive Device: FWW Wheelchair (FIM): 6 Distance: 150' Wheel 50 feet with 2 turns (QC: 6 Stairs (FIM): 2 # of Steps: 4 1 Step (curb) (QC): 4 4 Steps (QC): 4 12 Steps (QC): 88 Stairs Level Of Assist: 4 (CGA) Picking up an Object (QC): 88 PT Plan Treatment/Plan Treatment Plan: Continue Plan of Care Treatment Plan: Bed Mobility, Education, Functional Activity Anup, Functional Strength, Group Therapy, Gait, Safety, Therapeutic Exercise, Transfers Treatment Duration: Jul 13, 2016 Visits Per Week: 10-11 Minutes/Day (M-F): 60-90 Minutes/Day (Sat/Porter): 15-30 Safety Risks/Education Patient Education: Gait Training, Transfer Techniques, Steps, Issued Written HEP, Correct Positioning, Disease Process, Safety Issues Teaching Recipient: Patient Teaching Methods: Demonstration, Discussion Response to Teaching: Verbalize Understanding, Return Demonstration, Reinforcement Needed Time/GCodes Time In: 715 Time Out: 815 Total Billed Treatment Time: 60 Total Billed Treatment 1,GT20m,FA15, EX25m G Codes Necessary: BRITTON Pfeiffer PROGRAM MANAGEMENT MANAGER Jun 30, 2016 08:22
[2016-06-30] MEDS: LOSARTAN 50 MG (COZAAR) TAB PO SCH (08:30)
[2016-06-30] MEDS: OMEGA 3 (FISH OIL) 1000 MG CAP PO SCH (08:30)
[2016-06-30] MEDS: GABAPENTIN 100 MG (NEURONTIN) CAP PO SCH ×3 (08:30→20:09)
[2016-06-30] MEDS: DOCUSATE SODIUM 100 MG (COLACE) CAP PO SCH ×2 (08:30→20:09)
[2016-06-30] MEDS: SERTRALINE 50 MG (ZOLOFT) TABLET PO SCH (08:31)
[2016-06-30] MEDS: VITAMIN D3 1,000 UNITS (CHOLECALCIFEROL) TABLET PO SCH (08:31)
[2016-06-30] MEDS: ENOXAPARIN 40 MG/0.4 ML (LOVENOX) SYR SC SCH (08:31)
[2016-06-30] MEDS: ASPIRIN E.C. 81 MG (ECOTRIN) TAB PO SCH (08:31)
[2016-06-30] MEDS: DICLOFENAC 1% GEL 100 GM (VOLTAREN) TUBE TOP SCH ×4 (09:38→20:11)
[2016-06-30] MEDS: CHONDROITIN PO SCH ×2 (09:38→20:10)
[2016-06-30] MEDS: GLUCOSAMINE PO SCH ×2 (09:38→20:10)
[2016-06-30] MEDS: ACETAMINOPHEN 500 MG TAB (TYLENOL) PO PRN (10:04)
--- NOTE | 2016-06-30 12:17 | PM & R (SOAP) Progress Note ---
Subjective Subjective/Events-last exam Patient was seen in her room this AM Requests aRX for Voltaran gel upon discharge -will so order Patient Modified Independent for transfers Objective Exam Last Set of Vital Signs Vital Signs Date Time Temp Pulse Resp B/P Pulse Ox O2 Delivery O2 Flow Rate FiO2 06/30/16 05:43 97.0 95 18 134/79 98 Room Air Capillary Refill : Less Than 3 Seconds I&O Intake and Output 06/30/16 00:00 Intake Total 2750 ml Balance 2750 ml Intake Oral 2750 ml # Voids 12 # Bowel Movements 5 General: Alert, Oriented X3, Cooperative, No Acute Distress HEENT: Atraumatic, PERRLA, EOMI, Mucous Memb Moist/[place] Neck: Supple, No JVD Lungs: Other (course breath sounds left base) Heart: Regular Rate Abdomen: Normal Bowel Sounds, Soft, No Tenderness Extremities: Other (trace edema rt ankle) Neuro: Other (decreased strength rt hip) Assessment/Plan Assessment rt femoral neck frx s/p repair Ortho DR Couch06/18/16 with bipolar hemiarthroplasty [facility] as per operative report with CT being more specific -subcapital Postop anemia DJD rt knee with pain improved with injection HTN controlled DVT prophylaxis on Lovenox SQ Hyponatremia improved Plan Continue PT/OT Pain management Continue Current meds. Hyponatremia resolved.-fluid restriction d/cd Team Conference to be held tomorrow 07-01-16 Probable discharge by end of week Diagnosis clarified STACEY DUMONT MD Jun 30, 2016 12:17
--- NOTE | 2016-06-30 12:54 | Occupational Ther Daily Note ---
OT Current Status-Daily Note Subjective Pt in bed, agrees to treatment. Pt states she will be going home with family support. Mental Status/Objective Functional [place] Measure 0=Not Assessed/NA 4=Minimal Assistance 1=Total Assistance 5=Supervision or Setup 2=Maximal Assistance 6=Modified [place] 3=Moderate Assistance 7=Complete [place] ADL-Treatment Pt declined bathing this morning, requests to use restroom and get dressed. Supine to sit with modified independence. Sit to stand with modified independence. Gait to restroom with FWW, no LOB noted. Toilet transfer completed with modified independence. Pt able to complete toileting hygiene and clothing management with modified independence. Stood at sink to brush teeth, comb hair, and wash face with modified independence. Pt retrieved clothing from closet using FWW for balance. Don shirt with modified independence. Pt required assist to don TEOFILO hose. Don pants with modified independence using dressing stick to start pants over feet. Stood with good balance for pant hike. Pt donned socks without assistance using socks aid. Don slip-on shoes using dressing stick. Pt states she will be using a tub/shower combo at home. Instruction provided regarding safe transfer using shower chair. Pt demonstrated ability to perform transfer with SBA and skilled cues for technique. Pt sitting in chair with needs met after session. Functional [place] Measure 0=Not Assessed/NA 4=Minimal Assistance 1=Total Assistance 5=Supervision or Setup 2=Maximal Assistance 6=Modified [place] 3=Moderate Assistance 7=Complete IndependenceIRFPAI Quality Coding Scale 6 Independent with activity with or without an assistive device 5 Patient requires set up or clean up by helper. Patient completes activity by themselves 4 Supervision or touching assist (CGA). [place] provide cues , steadying assist 3 The helper provides less than half the effort to complete the activity 2 The helper provides more than half the effort to complete the activity 1 Dependent. The helper does all the effort to complete an activity 7 Patient refused to complete or attempt activity 9 The patient did not perform the activity before the current illness or injury 88 Not attempted due to Medical conditions or safety concerns Grooming (FIM): 6 Upper Body (FIM): 6 Lower Body Dressing (FIM): 5 Toileting (FIM): 6 Toilet/Commode Transfer (FIM): 6 OT Short Term Goals Short Term Goals Time Frame: Jun 29, 2016 Bathing(FIM): 4 (met-06/26/16) Lower Body Dressing(FIM): 3 (met-06/26/16) Toileting(FIM): 3 (met-06/26/16) Tub Transfer(FIM): 4 (CGA) Additional Short Term Goals: 1-Demonstrate ADL Tasks, 2-Verbalize Understanding , 3-ImproveStrength/Anup 1=Demonstrate adherence to instructed precautions during ADL tasks. 2=Patient will verbalize/demonstrate understanding of assistive devices/ modifications for ADL. 3=Patient will improve strength/tolerance for activity to enable patient to perform ADL's. OT Receptionist Secretary Goals Alf Goals Time Frame: Jul 13, 2016 Eating (FIM): 6 Eating (QC): 6 Oral Hygiene (QC): 6 Grooming(FIM): 6 Bathing(FIM): 5 (met-06/26/16) Shower/Bathe Self (QC): 5 Upper Body Dressing(FIM): 6 Upper Body Dressing (QC): 6 Lower Body Dressing(FIM): 5 Lower Body Dressing (QC): 5 On/Off Footwear (QC): 6 Toileting(FIM): 5 (met-06/26/16) Toileting Hygiene (QC): 5 Toilet/Commode Transfer(FIM): 6 Toilet/Commode Transfer (QC): 6 Shower Transfer(FIM): 5 (met-06/26/16) Additional Goals: 1-Demonstrate ADL Tasks, 2-Verbalize Understanding, 3- ImproveStrength/Anup 1=Demonstrate adherence to instructed precautions during ADL tasks. 2=Patient will verbalize/demonstrate understanding of assistive devices/ modifications for ADL. 3=Patient will improve strength/tolerance for activity to enable patient to perform ADL's. OT Education/Plan Problem List/Assessment Pt to benefit from skilled OT intervention for ADL training, transfers, strengthening, and adaptive equipment education to maximize level of function and allow safe discharge. Discharge Recommendations Plan/Recommendations: Continue POC Treatment Plan/Plan of Care Patient would benefit from OT for education, treatment and training to promote independence in ADL's, mobility, safety and/or upper extremity function for ADL' s. Plan of Care: ADL Retraining, Functional Mobility, Group Exercise/Act as Ind, UE Funct Exercise/Act Treatment Duration: Jul 13, 2016 Visits Per Week: 10-11 Minutes/Day (M-F): 60-90 Minutes/Day (Sat/Porter): PRN Agreement: Yes Rehab Potential: Fair Time/GCodes Start Time: 10:00 Stop Time: 11:00 Total Time Billed (hr/min): 60 Billed Treatment Time 1 visit, ADLx4(60minutes) SHAWN WHITEHEAD OT Jun 30, 2016 12:54
--- NOTE | 2016-06-30 14:51 | Occupational Ther Daily Note ---
OT Current Status-Daily Note Subjective Pt sitting in chair, agrees to treatment. Mental Status/Objective Functional [place] Measure 0=Not Assessed/NA 4=Minimal Assistance 1=Total Assistance 5=Supervision or Setup 2=Maximal Assistance 6=Modified [place] 3=Moderate Assistance 7=Complete [place] ADL-Treatment Functional [place] Measure 0=Not Assessed/NA 4=Minimal Assistance 1=Total Assistance 5=Supervision or Setup 2=Maximal Assistance 6=Modified [place] 3=Moderate Assistance 7=Complete IndependenceIRFPAI Quality Coding Scale 6 Independent with activity with or without an assistive device 5 Patient requires set up or clean up by helper. Patient completes activity by themselves 4 Supervision or touching assist (CGA). [place] provide cues , steadying assist 3 The helper provides less than half the effort to complete the activity 2 The helper provides more than half the effort to complete the activity 1 Dependent. The helper does all the effort to complete an activity 7 Patient refused to complete or attempt activity 9 The patient did not perform the activity before the current illness or injury 88 Not attempted due to Medical conditions or safety concerns Other Treatment Pt sit to stand with modified independence. Pt stood with good balance while RN changed hip dressing. Gait to therapy gym with FWW, no LOB noted. Pt performed bilateral UE exercises to increase strength needed for ADLs and transfers. Pt performed shoulder flexion, forward press, biceps curls, and wrist flex/ext with dowel brea x15 reps. Graded clothespin activity with bilateral hands to increase eye care professional/pinch strength. Pt returned to room, transferred to chair with modified independence. Pt sitting in chair with needs met after session. OT Short Term Goals Short Term Goals Time Frame: Jun 29, 2016 Bathing(FIM): 4 (met-06/26/16) Lower Body Dressing(FIM): 3 (met-06/26/16) Toileting(FIM): 3 (met-06/26/16) Tub Transfer(FIM): 4 (CGA) Additional Short Term Goals: 1-Demonstrate ADL Tasks, 2-Verbalize Understanding , 3-ImproveStrength/Anup 1=Demonstrate adherence to instructed precautions during ADL tasks. 2=Patient will verbalize/demonstrate understanding of assistive devices/ modifications for ADL. 3=Patient will improve strength/tolerance for activity to enable patient to perform ADL's. OT Nursing Home Goals Ceramic Maker Demonstrator Goals Time Frame: Jul 13, 2016 Eating (FIM): 6 Eating (QC): 6 Oral Hygiene (QC): 6 Grooming(FIM): 6 Bathing(FIM): 5 (met-06/26/16) Shower/Bathe Self (QC): 5 Upper Body Dressing(FIM): 6 Upper Body Dressing (QC): 6 Lower Body Dressing(FIM): 5 Lower Body Dressing (QC): 5 On/Off Footwear (QC): 6 Toileting(FIM): 5 (met-06/26/16) Toileting Hygiene (QC): 5 Toilet/Commode Transfer(FIM): 6 Toilet/Commode Transfer (QC): 6 Shower Transfer(FIM): 5 (met-06/26/16) Additional Goals: 1-Demonstrate ADL Tasks, 2-Verbalize Understanding, 3- ImproveStrength/Anup 1=Demonstrate adherence to instructed precautions during ADL tasks. 2=Patient will verbalize/demonstrate understanding of assistive devices/ modifications for ADL. 3=Patient will improve strength/tolerance for activity to enable patient to perform ADL's. OT Education/Plan Problem List/Assessment Pt to benefit from skilled OT intervention for ADL training, transfers, strengthening, and adaptive equipment education to maximize level of function and allow safe discharge. Discharge Recommendations Plan/Recommendations: Continue POC Treatment Plan/Plan of Care Patient would benefit from OT for education, treatment and training to promote independence in ADL's, mobility, safety and/or upper extremity function for ADL' s. Plan of Care: ADL Retraining, Functional Mobility, Group Exercise/Act as Ind, UE Funct Exercise/Act Treatment Duration: Jul 13, 2016 Visits Per Week: 10-11 Minutes/Day (M-F): 60-90 Minutes/Day (Sat/Porter): PRN Agreement: Yes Rehab Potential: Fair Time/GCodes Start Time: 13:30 Stop Time: 14:00 Total Time Billed (hr/min): 30 Billed Treatment Time 1 visit, EXx2(30minutes) SHAWN WHITEHEAD OT Jun 30, 2016 14:51
--- NOTE | 2016-06-30 15:16 | Physical Therapy Daily Note ---
PT Daily Note-Current Subjective Agrees to Rx. Pain Numeric Pain Scale: 0-No Pain Mental Status Patient Orientation: Normal For Age Transfers Functional [place] Measure 0=Not Assessed/NA 4=Minimal Assistance 1=Total Assistance 5=Supervision or Setup 2=Maximal Assistance 6=Modified [place] 3=Moderate Assistance 7=Complete IndependenceIRFPAI Quality Coding Scale 6 Independent with activity with or without an assistive device 5 Patient requires set up or clean up by helper. Patient completes activity by themselves 4 Supervision or touching assist (CGA). [place] provide cues , steadying assist 3 The helper provides less than half the effort to complete the activity 2 The helper provides more than half the effort to complete the activity 1 Dependent. The helper does all the effort to complete an activity 7 Patient refused to complete or attempt activity 9 The patient did not perform the activity before the current illness or injury 88 Not attempted due to Medical conditions or safety concerns all TRFs Mod I Gait Training Gait Assistive Device: FWW up ad hua now, 150 ft x 2 , no LOB, Stair Training Stair Training: Handrails/: 2 handrails Stairs (FIM): 5 #of Steps: 12 Stairs: Pattern: Step to Level of Assist: 5 Exercises NuStep Minutes: 10 NuStep Workload: 3 Assessment Current Status: Excellent Progress progressed to up ad hua status PT Short Term Goals Short Term Goals Time Frame: Jun 29, 2016 Gait (FIM): 2 (met 06/27/16) Gait Distance Comment: 50' Gait Level of Assist: 4 Gait Assistive Device: FWW Wheelchair (FIM): 4 Wheelchair Distance: 150' Wheelchair Level of Assist: 4 (cga) PT Surveyor Instrument Assistant Goals Surveyor Instrument Assistant Goals PT Surveyor Instrument Assistant Goals Time Frame: Jul 13, 2016 Transfers (B,C,W/C) (FIM): 5 Sit to Lying (QC): 4 Lying-Sitting on Side/Bed(QC): 4 Sit to Stand (QC): 4 Rollin Roll Left to Right (QC): 4 Chair/Jqi-ut-Gefck Xfer(QC): 4 Car Transfer (QC): 4 Does the Patient Walk: Yes Gait (FIM): 5 Distance: 150' Walk 10 feet (QC): 4 Walk 10ft-Uneven Surface(QC): 4 Walk 50ft with 2 Turns (QC): 4 Walk 150 ft (QC): 4 Gait Level of Assist: 5 Gait Assistive Device: FWW Wheelchair (FIM): 6 Distance: 150' Wheel 50 feet with 2 turns (QC: 6 Stairs (FIM): 2 # of Steps: 4 1 Step (curb) (QC): 4 4 Steps (QC): 4 12 Steps (QC): 88 Stairs Level Of Assist: 4 (CGA) Picking up an Object (QC): 88 PT Plan Treatment/Plan Treatment Plan: Continue Plan of Care Treatment Plan: Bed Mobility, Education, Functional Activity Anup, Functional Strength, Group Therapy, Gait, Safety, Therapeutic Exercise, Transfers Treatment Duration: Jul 13, 2016 Visits Per Week: 10-11 Minutes/Day (M-F): 60-90 Minutes/Day (Sat/Porter): 15-30 Safety Risks/Education Patient Education: Gait Training, Transfer Techniques, Steps Time/GCodes Time In: 1440 Time Out: 1510 Total Billed Treatment Time: 30 Total Billed Treatment 1,FA20,EX10 G Codes Necessary: BRITTON Pfeiffer COMMUNICATION INSTRUCTOR Jun 30, 2016 15:16
--- NOTE | 2016-06-30 15:21 | Progress Note (SOAP) ---
Subjective Subjective/Events-last exam Patient doing well today. Denies any hip or knee pain. Objective Exam Vital Signs Date Time Temp Pulse Resp B/P Pulse Ox O2 Delivery O2 Flow Rate FiO2 06/30/16 05:43 97.0 95 18 134/79 98 Room Air 06/29/16 21:00 Room Air 06/29/16 18:00 98.0 92 22 114/68 96 Room Air I & O 06/30/16 07:00 Intake Total 2050 ml Balance 2050 ml Capillary Refill : Less Than 3 Seconds General Appearance: No Apparent Distress WD/WN Extremity: Normal Capillary Refill Normal Inspection Normal Range of Motion No Pedal Edema Neurologic/Psychiatric: Alert Oriented x3 No Motor/Sensory Deficits Normal Mood/Affect Skin: Normal Color Other comments Incision dry clean and intact. Assessment/Plan Assessment/Plan Assess & Plan/Chief Complaint 1. right knee osteoarthritis pain. Injected with steroid last week and doing better with no pain. 2. right hip hemiarthroplasty. She is doing very well with her hip and is scheduled to go home on . She will follow up with Dr. Couch on 07 July. Diagnosis/Problems: Clinical Quality Measures DVT/VTE Risk/Contraindication: Risk Factor Score Per Nursin RFS Level Per Nursing on Admit: 4+=Very High IRA MILLER Jun 30, 2016 15:21
[2016-06-30 18:23] VITALS: BP 121/79
[2016-06-30] MEDS: SIMvastatin 20 MG (ZOCOR) TAB PO SCH (20:09)
[2016-06-30] MEDS: AMITRIPTYLINE 10 MG (ELAVIL) TAB PO SCH (20:09)
[2016-07-01] MEDS: HYDROcodone/APAP 5 MG/325 MG (LORTAB) TAB PO PRN ×3 (05:33→21:04)
[2016-07-01 06:00] VITALS: BP 155/76
[2016-07-01] MEDS: MULTIVIT W/MINERALS TAB (THERAGRAN M) PO SCH (06:17)
--- NOTE | 2016-07-01 08:15 | Physical Therapy Daily Note ---
PT Daily Note-Current Subjective Pt. agreed to Rx. Feels ready to DC. Pain Numeric Pain Scale: 0-No Pain Mental Status Patient Orientation: Normal For Age Transfers Functional [place] Measure 0=Not Assessed/NA 4=Minimal Assistance 1=Total Assistance 5=Supervision or Setup 2=Maximal Assistance 6=Modified [place] 3=Moderate Assistance 7=Complete IndependenceIRFPAI Quality Coding Scale 6 Independent with activity with or without an assistive device 5 Patient requires set up or clean up by helper. Patient completes activity by themselves 4 Supervision or touching assist (CGA). [place] provide cues , steadying assist 3 The helper provides less than half the effort to complete the activity 2 The helper provides more than half the effort to complete the activity 1 Dependent. The helper does all the effort to complete an activity 7 Patient refused to complete or attempt activity 9 The patient did not perform the activity before the current illness or injury 88 Not attempted due to Medical conditions or safety concerns Transfers (B, C, W/C) (FIM): 6 Scootin Rollin Roll Left to Right (QC): 6 Supine to/from Sit: 6 Sit to/from Stand: 6 Sit to Lying (QC): 6 Sit to Stand (QC): 6 Chair/Vbb-mo-Izbsw Xfer(QC): 6 Bed to/from Chair: 6 Car Transfer (QC): 6 Gait Training Does the Patient Walk?: Yes Gait (FIM): 6 Distance (FIM): 3=150 ft Walk 10 feet (QC): 6 Walk 50 ft with 2 Turns(QC): 6 Walk 150 ft (QC): 6 Walking 10ft/uneven surface-QC: 6 Gait Level of Assist: 6 Gait Persons Needed: 6 Gait Assistive Device: FWW Wheelchair Training Does the Pt Use a Wheelchair?: No Stair Training Stair Training: Handrails/: 2 handrails Stairs (FIM): 6 #of Steps: 12 1 Step (curb) (QC): 6 4 Steps (QC): 6 12 Steps (QC): 6 Stairs: Pattern: Step to Level of Assist: 6 Exercises Supine Ex: Ankle pumps, Quad Set, Rolling, Glut sets, Heel Slides, Short Arc Quads, Scooting, Straight leg raise, Hip abd/add Supine Reps: 15 Standing: Hip Abduction, Hamstring curls, Heel/toe raises, Marching, Mini squats Standing Reps: 15 Assessment Current Status: Excellent Progress PT Short Term Goals Short Term Goals Time Frame: Jun 29, 2016 Gait (FIM): 2 (met 06/27/16) Gait Distance Comment: 50' Gait Level of Assist: 4 Gait Assistive Device: FWW Wheelchair (FIM): 4 Wheelchair Distance: 150' Wheelchair Level of Assist: 4 (cga) PT Intermediate Goals Intermediate Goals PT Intermediate Goals Time Frame: Jul 13, 2016 Transfers (B,C,W/C) (FIM): 5 Sit to Lying (QC): 4 Lying-Sitting on Side/Bed(QC): 4 Sit to Stand (QC): 4 Rollin Roll Left to Right (QC): 4 Chair/Jrr-ob-Knlxd Xfer(QC): 4 Car Transfer (QC): 4 Does the Patient Walk: Yes Gait (FIM): 5 Distance: 150' Walk 10 feet (QC): 4 Walk 10ft-Uneven Surface(QC): 4 Walk 50ft with 2 Turns (QC): 4 Walk 150 ft (QC): 4 Gait Level of Assist: 5 Gait Assistive Device: FWW Wheelchair (FIM): 6 Distance: 150' Wheel 50 feet with 2 turns (QC: 6 Stairs (FIM): 2 # of Steps: 4 1 Step (curb) (QC): 4 4 Steps (QC): 4 12 Steps (QC): 88 Stairs Level Of Assist: 4 (CGA) Picking up an Object (QC): 88 PT Plan Treatment/Plan Treatment Plan: Continue Plan of Care Treatment Plan: Bed Mobility, Education, Functional Activity Anup, Functional Strength, Group Therapy, Gait, Safety, Therapeutic Exercise, Transfers Treatment Duration: Jul 13, 2016 Visits Per Week: 10-11 Minutes/Day (M-F): 60-90 Minutes/Day (Sat/Porter): 15-30 Safety Risks/Education Patient Education: Gait Training, Transfer Techniques, Steps, Correct Positioning Teaching Recipient: Patient Teaching Methods: Demonstration, Discussion Response to Teaching: Verbalize Understanding, Return Demonstration, Reinforcement Needed Time/GCodes Time In: 715 Time Out: 815 Total Billed Treatment Time: 60 Total Billed Treatment 1,FA30m,EX30m G Codes Necessary: BRITTON Pfeiffer FUSE CUP EXPANDER Jul 01, 2016 08:15
[2016-07-01] MEDS: LOSARTAN 50 MG (COZAAR) TAB PO SCH (08:41)
[2016-07-01] MEDS: GABAPENTIN 100 MG (NEURONTIN) CAP PO SCH ×3 (08:41→21:03)
[2016-07-01] MEDS: DOCUSATE SODIUM 100 MG (COLACE) CAP PO SCH ×2 (08:41→21:04)
[2016-07-01] MEDS: VITAMIN D3 1,000 UNITS (CHOLECALCIFEROL) TABLET PO SCH (08:41)
[2016-07-01] MEDS: ASPIRIN E.C. 81 MG (ECOTRIN) TAB PO SCH (08:41)
[2016-07-01] MEDS: OMEGA 3 (FISH OIL) 1000 MG CAP PO SCH (08:41)
[2016-07-01] MEDS: SERTRALINE 50 MG (ZOLOFT) TABLET PO SCH (08:41)
[2016-07-01] MEDS: ENOXAPARIN 40 MG/0.4 ML (LOVENOX) SYR SC SCH (08:42)
--- NOTE | 2016-07-01 08:48 | PM & R (SOAP) Progress Note ---
Subjective Subjective/Events-last exam Patient was seen in her room this AM Has progressed well Patient Modified Independent for transfers. Objective Exam Last Set of Vital Signs Vital Signs Date Time Temp Pulse Resp B/P Pulse Ox O2 Delivery O2 Flow Rate FiO2 07/01/16 06:00 96.7 84 22 155/76 96 Room Air Capillary Refill : Less Than 3 Seconds I&O Intake and Output 07/01/16 00:00 Intake Total 1350 ml Balance 1350 ml Intake Oral 1350 ml # Voids 9 General: Alert, Oriented X3, Cooperative, No Acute Distress HEENT: Atraumatic, PERRLA, EOMI, Mucous Memb Moist/[place] Neck: Supple, No JVD Lungs: Other (course breath sounds left base) Heart: Regular Rate Abdomen: Normal Bowel Sounds, Soft, No Tenderness Extremities: Other (trace edema rt ankle) Neuro: Other (decreased strength rt hip) Assessment/Plan Assessment rt femoral neck frx s/p repair Ortho DR Couch06/18/16 with bipolar hemiarthroplasty [facility] as per operative report with CT being more specific -subcapital Postop anemia DJD rt knee with pain improved with injection HTN controlled DVT prophylaxis on Lovenox SQ Hyponatremia improved Plan Continue PT/OT Pain management Continue Current meds.-Meds reviewed, Hyponatremia resolved.-fluid restriction d/cd Team Conference to be held later today Discharge set tentatively for [id number] to home with family and [facility] Diagnosis clarified STACEY DUMONT MD Jul 01, 2016 08:48
[2016-07-01] MEDS ORDERED: GABA-486 PO (08:54)
[2016-07-01] MEDS ORDERED: HYDR-3812 PO (08:54)
[2016-07-01] MEDS ORDERED: DICL100G18 TOP (08:54)
[2016-07-01] MEDS: CHONDROITIN PO SCH ×2 (09:40→21:05)
[2016-07-01] MEDS: DICLOFENAC 1% GEL 100 GM (VOLTAREN) TUBE TOP SCH ×4 (09:40→21:04)
[2016-07-01] MEDS: GLUCOSAMINE PO SCH ×2 (09:40→21:05)
[2016-07-01] MEDS: ACETAMINOPHEN 500 MG TAB (TYLENOL) PO PRN (09:53)
--- NOTE | 2016-07-01 11:47 | Occupational Ther Daily Note ---
OT Current Status-Daily Note Subjective Pt sitting in chair, agrees to treatment. Plan is for pt to d/c home tomorrow. Mental Status/Objective Functional [place] Measure 0=Not Assessed/NA 4=Minimal Assistance 1=Total Assistance 5=Supervision or Setup 2=Maximal Assistance 6=Modified [place] 3=Moderate Assistance 7=Complete [place] ADL-Treatment Pt has already retrieved clothing from closet in preparation for shower. Gait to restroom with FWW. Toilet transfer completed with modified independence. Pt able to manage hygiene and clothing with modified independence. [place] clothing without assistance. Transfer to walk in shower with modified independence using grab bars for balance and safety. Pt able to wash/dry all areas with modified independence. Uses long handled sponge to wash lower legs and feet. Don bra and pullover shirt with modified independence. Assist required to don TEOFILO hose. Pt used dressing stick to start underwear and pants over feet. Stood with good balance for pant hike. Don socks with modified independence using sock aid. Pt donned slip on shoes using dressing stick. Grooming tasks completed with modified independence while standing at sink. Pt states she already completed denture/oral care without assistance. Pt returned dirty clothing to closet without LOB. Pt transferred to chair with modified independence. Plan is for pt to d/c home tomorrow. Pt states she will be getting a hip kit for home. Pt has no questions or concerns at this time. Sitting with needs met after session. Functional [place] Measure 0=Not Assessed/NA 4=Minimal Assistance 1=Total Assistance 5=Supervision or Setup 2=Maximal Assistance 6=Modified [place] 3=Moderate Assistance 7=Complete IndependenceIRFPAI Quality Coding Scale 6 Independent with activity with or without an assistive device 5 Patient requires set up or clean up by helper. Patient completes activity by themselves 4 Supervision or touching assist (CGA). [place] provide cues , steadying assist 3 The helper provides less than half the effort to complete the activity 2 The helper provides more than half the effort to complete the activity 1 Dependent. The helper does all the effort to complete an activity 7 Patient refused to complete or attempt activity 9 The patient did not perform the activity before the current illness or injury 88 Not attempted due to Medical conditions or safety concerns Eating (FIM): 6 (Pt reports managing containers, cutting food, and feeding self independently) Eating (QC): 6 Grooming (FIM): 6 Oral Hygiene (QC): 6 Toileting Hygiene (QC): 6 Bathing (FIM): 6 Upper Body (FIM): 6 Upper Body Dressing (QC): 6 Lower Body Dressing (FIM): 5 (set up for TEOFILO hose) Lower Body Dressing (QC): 5 On/Off Footwear (QC): 6 Toileting (FIM): 6 Toilet/Commode Transfer (FIM): 6 Toilet Transfer (QC): 6 Shower Transfer(FIM): 6 Shower/Bathe Self (QC): 6 OT Short Term Goals Short Term Goals Time Frame: Jun 29, 2016 Bathing(FIM): 4 (met-06/26/16) Lower Body Dressing(FIM): 3 (met-06/26/16) Toileting(FIM): 3 (met-06/26/16) Tub Transfer(FIM): 4 (CGA) Additional Short Term Goals: 1-Demonstrate ADL Tasks, 2-Verbalize Understanding , 3-ImproveStrength/Anup 1=Demonstrate adherence to instructed precautions during ADL tasks. 2=Patient will verbalize/demonstrate understanding of assistive devices/ modifications for ADL. 3=Patient will improve strength/tolerance for activity to enable patient to perform ADL's. OT Finisher Accordion Goals Finisher Accordion Goals Time Frame: Jul 13, 2016 Eating (FIM): 6 (met 07/01/16) Eating (QC): 6 (6-met 07/01/16) Oral Hygiene (QC): 6 (6-met 07/01/16) Grooming(FIM): 6 (met 07/01/16) Bathing(FIM): 5 (met-06/26/16) Shower/Bathe Self (QC): 5 (6-exceeded 07/01/16) Upper Body Dressing(FIM): 6 (met 07/01/16) Upper Body Dressing (QC): 6 (6-met 07/01/16) Lower Body Dressing(FIM): 5 (met 07/01/16- set up for TEOFILO hose) Lower Body Dressing (QC): 5 (5-met 07/01/16) On/Off Footwear (QC): 6 (6-met 07/01/16) Toileting(FIM): 5 (met-06/26/16) Toileting Hygiene (QC): 5 (6-exceeded 07/01/16) Toilet/Commode Transfer(FIM): 6 (met ) Toilet/Commode Transfer (QC): 6 (6-met 07/01/16) Shower Transfer(FIM): 5 (met-06/26/16) Additional Goals: 1-Demonstrate ADL Tasks, 2-Verbalize Understanding, 3- ImproveStrength/Anup 1=Demonstrate adherence to instructed precautions during ADL tasks. 2=Patient will verbalize/demonstrate understanding of assistive devices/ modifications for ADL. 3=Patient will improve strength/tolerance for activity to enable patient to perform ADL's. OT Education/Plan Problem List/Assessment Pt to benefit from skilled OT intervention for ADL training, transfers, strengthening, and adaptive equipment education to maximize level of function and allow safe discharge. Discharge Recommendations Plan/Recommendations: Continue POC Treatment Plan/Plan of Care Patient would benefit from OT for education, treatment and training to promote independence in ADL's, mobility, safety and/or upper extremity function for ADL' s. Plan of Care: ADL Retraining, Functional Mobility, Group Exercise/Act as Ind, UE Funct Exercise/Act Treatment Duration: Jul 13, 2016 Visits Per Week: 10-11 Minutes/Day (M-F): 60-90 Minutes/Day (Sat/Porter): PRN Agreement: Yes Rehab Potential: Fair Time/GCodes Start Time: 09:00 Stop Time: 10:00 Total Time Billed (hr/min): 60 Billed Treatment Time 1 visit, ADLx4(60minutes) SHAWN WHITEHEAD OT Jul 01, 2016 11:47
--- NOTE | 2016-07-01 15:10 | Therapy Group Daily Note ---
Therapy Daily Group Note Patient Education Topic Exercises, Other List Below (education on arthritis, benefits of using parafin bath, different uses for built up utensils)) Exercises Stretching, UE Exercise Other/Notes Pt participated socially by introducing self and describing what she likes to do to help her relax. Topic of discussion was arthritis, carpal tunnel and the benefits of using a paraffin bath, different types of AE for arthritis. Pt was able to place both hands in the paraffin bath. Pt then completed nerve glide exercise. Pt ambulated self to room. Pt in w/c, call light in hand. All needs met. Start Time: 13:00 Stop Time: 14:10 Total Billed Treatment Time: 70 Total Billed Treatment 1-GRP GINI DELONG Jul 01, 2016 15:10
[2016-07-01 18:38] VITALS: BP 112/60
[2016-07-01] MEDS: AMITRIPTYLINE 10 MG (ELAVIL) TAB PO SCH (21:03)
[2016-07-01] MEDS: SIMvastatin 20 MG (ZOCOR) TAB PO SCH (21:04)
[2016-07-02] MEDS: HYDROcodone/APAP 5 MG/325 MG (LORTAB) TAB PO PRN ×3 (05:13→16:50)
[2016-07-02] MEDS: MULTIVIT W/MINERALS TAB (THERAGRAN M) PO SCH (05:16)
[2016-07-02 06:00] VITALS: BP 126/70
--- NOTE | 2016-07-02 08:16 | PM & R (SOAP) Progress Note ---
Subjective Subjective/Events-last exam Patient was seen in her room this AM Allset for discharge today Has progressed well Objective Exam Last Set of Vital Signs Vital Signs Date Time Temp Pulse Resp B/P Pulse Ox O2 Delivery O2 Flow Rate FiO2 07/02/16 06:00 96.8 86 20 126/70 97 Room Air Capillary Refill : Less Than 3 Seconds I&O Intake and Output 07/02/16 00:00 Intake Total 1875 ml Balance 1875 ml Intake Oral 1875 ml # Voids 8 # Bowel Movements 2 General: Alert, Oriented X3, Cooperative, No Acute Distress HEENT: Atraumatic, PERRLA, EOMI, Mucous Memb Moist/[place] Neck: Supple, No JVD Lungs: Other (course breath sounds left base) Heart: Regular Rate Abdomen: Normal Bowel Sounds, Soft, No Tenderness Extremities: Other (trace edema rt ankle) Neuro: Other (decreased strength rt hip) Assessment/Plan Assessment rt femoral neck frx s/p repair Ortho DR Couch06/18/16 with bipolar hemiarthroplasty [facility] as per operative report with CT being more specific -subcapital Postop anemia DJD rt knee with pain improved with injection HTN controlled DVT prophylaxis on Lovenox SQ Hyponatremia improved Plan Discharge today to home with family and HHC F/U with PCP and orthopedics See orders Team Conference held yesterday-See report for full functional update and POC STACEY DUMONT MD Jul 02, 2016 08:16
--- NOTE | 2016-07-02 08:20 | Therapy Team Discharge Summary ---
Therapy Discharge Summary Discharge Recommendations Date of Discharge Therapy D/C Recommendations: Home w/ Family Support Physical Therapy Patient came to rehab after a left hip fracture. Upon evaluation patient performed bed mobility with min/mod A and transfers with mod assist, ambulated 20' with a rolling walker with min assist, and could propel a wheelchair 150' with min assist. Patient has been performing bed mobility and transfer training , balance and endurance training, functional strengthening, gait training, stair training, education. 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 Now, patient performs bed mobility and transfers with mod I, ambulates 150' with a rolling walker with mod I, and can go up and down 12 steps using 2 handrails with mod I. Patient is being discharged from this facility today and will be discharged from PT at this time. PT Travel Physical Therapist Goals Travel Physical Therapist Goals PT Fpc Goals Time Frame: Jul 13, 2016 Transfers (B,C,W/C) (FIM): 5 Roll Left to Right (QC): 4 Sit to Lying (QC): 4 Lying-Sitting on Side/Bed(QC): 4 Sit to Stand (QC): 4 Chair/Btm-it-Tyzho Xfer(QC): 4 Car Transfer (QC): 4 Does the Patient Walk: Yes Gait (FIM): 5 Distance: 150' Walk 10 feet (QC): 4 Walk 10ft-Uneven Surface(QC): 4 Walk 50ft with 2 Turns (QC): 4 Walk 150 ft (QC): 4 Gait Level of Assist: 5 Gait Assistive Device: FWW Wheelchair (FIM): 6 Distance: 150' Wheel 50 feet with 2 turns (QC: 6 Stairs (FIM): 2 # of Steps: 4 1 Step (curb) (QC): 4 4 Steps (QC): 4 12 Steps (QC): 88 Stairs Level Of Assist: 4 (CGA) Picking up an Object (QC): 88 OT Travel Physical Therapist Goals Travel Physical Therapist Goals Time Frame: Jul 13, 2016 Eating (FIM): 6 (met 07/01/16) Eating (QC): 6 (6-met 07/01/16) Oral Hygiene (QC): 6 (6-met 07/01/16) Grooming(FIM): 6 (met 07/01/16) Bathing(FIM): 5 (met-06/26/16) Shower/Bathe Self (QC): 5 (6-exceeded 07/01/16) Upper Body Dressing(FIM): 6 (met 07/01/16) Upper Body Dressing (QC): 6 (6-met 07/01/16) Lower Body Dressing(FIM): 5 (met 07/01/16- set up for TEOFILO hose) Lower Body Dressing (QC): 5 (5-met 07/01/16) On/Off Footwear (QC): 6 (6-met 07/01/16) Toileting(FIM): 5 (met-06/26/16) Toileting Hygiene (QC): 5 (6-exceeded 07/01/16) Toilet/Commode Transfer(FIM): 6 (met ) Toilet/Commode Transfer (QC): 6 (6-met 07/01/16) Shower Transfer(FIM): 5 (met-06/26/16) Additional Goals: 1-Demonstrate ADL Tasks, 2-Verbalize Understanding, 3- ImproveStrength/Anup 1=Demonstrate adherence to instructed precautions during ADL tasks. 2=Patient will verbalize/demonstrate understanding of assistive devices/ modifications for ADL. 3=Patient will improve strength/tolerance for activity to enable patient to perform ADL's. ROSA AVERY PT Jul 02, 2016 08:19
[2016-07-02] MEDS: LOSARTAN 50 MG (COZAAR) TAB PO SCH (08:26)
[2016-07-02] MEDS: GABAPENTIN 100 MG (NEURONTIN) CAP PO SCH ×2 (08:26→13:09)
[2016-07-02] MEDS: ASPIRIN E.C. 81 MG (ECOTRIN) TAB PO SCH (08:26)
[2016-07-02] MEDS: OMEGA 3 (FISH OIL) 1000 MG CAP PO SCH (08:26)
[2016-07-02] MEDS: VITAMIN D3 1,000 UNITS (CHOLECALCIFEROL) TABLET PO SCH (08:26)
[2016-07-02] MEDS: DOCUSATE SODIUM 100 MG (COLACE) CAP PO SCH (08:26)
[2016-07-02] MEDS: ENOXAPARIN 40 MG/0.4 ML (LOVENOX) SYR SC SCH (08:26)
[2016-07-02] MEDS: DICLOFENAC 1% GEL 100 GM (VOLTAREN) TUBE TOP SCH ×2 (08:27→13:00)
[2016-07-02] MEDS: CHONDROITIN PO SCH (08:27)
[2016-07-02] MEDS: GLUCOSAMINE PO SCH (08:27)
[2016-07-02] MEDS: SERTRALINE 50 MG (ZOLOFT) TABLET PO SCH (08:32)
--- NOTE | 2016-07-02 12:40 | Therapy Team Discharge Summary ---
Therapy Discharge Summary Discharge Recommendations Date of Discharge Therapy D/C Recommendations: Home w/ Family Support Occupational Therapy Pt. has been seen by occupational therapy to increase overall strength and independence with daily tasks. Pt. has met all goals. Pt. is able to bathe/ dress/toilet self with Mod I. Requires Set up for TEOFILO Hose. Pt. plans to discharge home with family assist as needed. Pt. has needed equipment. No further OT warranted at this time. PT Assisted Goals Business Analyst Project Manager Goals PT Assisted Goals Time Frame: Jul 13, 2016 Transfers (B,C,W/C) (FIM): 5 Roll Left to Right (QC): 4 Sit to Lying (QC): 4 Lying-Sitting on Side/Bed(QC): 4 Sit to Stand (QC): 4 Chair/Sgl-ry-[place] Xfer(QC): 4 Car Transfer (QC): 4 Does the Patient Walk: Yes Gait (FIM): 5 Distance: 150' Walk 10 feet (QC): 4 Walk 10ft-Uneven Surface(QC): 4 Walk 50ft with 2 Turns (QC): 4 Walk 150 ft (QC): 4 Gait Level of Assist: 5 Gait Assistive Device: FWW Wheelchair (FIM): 6 Distance: 150' Wheel 50 feet with 2 turns (QC: 6 Stairs (FIM): 2 # of Steps: 4 1 Step (curb) (QC): 4 4 Steps (QC): 4 12 Steps (QC): 88 Stairs Level Of Assist: 4 (CGA) Picking up an Object (QC): 88 OT Business Analyst Project Manager Goals Business Analyst Project Manager Goals Time Frame: Jul 13, 2016 Eating (FIM): 6 (met 07/01/16) Eating (QC): 6 (6-met 07/01/16) Oral Hygiene (QC): 6 (6-met 07/01/16) Grooming(FIM): 6 (met 07/01/16) Bathing(FIM): 5 (met-06/26/16) Shower/Bathe Self (QC): 5 (6-exceeded 07/01/16) Upper Body Dressing(FIM): 6 (met 07/01/16) Upper Body Dressing (QC): 6 (6-met 07/01/16) Lower Body Dressing(FIM): 5 (met 07/01/16- set up for TEOFILO hose) Lower Body Dressing (QC): 5 (5-met 07/01/16) On/Off Footwear (QC): 6 (6-met 07/01/16) Toileting(FIM): 5 (met-06/26/16) Toileting Hygiene (QC): 5 (6-exceeded 07/01/16) Toilet/Commode Transfer(FIM): 6 (met ) Toilet/Commode Transfer (QC): 6 (6-met 07/01/16) Shower Transfer(FIM): 5 (met-06/26/16) Additional Goals: 1-Demonstrate ADL Tasks, 2-Verbalize Understanding, 3- ImproveStrength/Anup 1=Demonstrate adherence to instructed precautions during ADL tasks. 2=Patient will verbalize/demonstrate understanding of assistive devices/ modifications for ADL. 3=Patient will improve strength/tolerance for activity to enable patient to perform ADL's. JJ DURAND OT Jul 02, 2016 12:40
[2016-07-02 17:46] VITALS: BP 126/70
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
== END 2016-07-02 17:00 | disposition home health service (06) | DRG 560 ==
PROVIDERS: ADMIT Physical Medicine & Rehabilitation; ATTEND Physical Medicine & Rehabilitation
PROC: 3E0U33Z Introduction of Anti-inflammatory into Joints, Percutaneous Approach (ICD-10-PCS; principal; 2016-06-25)
DX: Z47.1 Aftercare following joint replacement surgery (principal); S72.011D Unspecified intracapsular fracture of right femur, subsequent encounter for closed fracture with routine healing; M17.11 Unilateral primary osteoarthritis, right knee; I10 Essential (primary) hypertension; F41.9 Anxiety disorder, unspecified; E87.1 Hypo-osmolality and hyponatremia; D64.9 Anemia, unspecified; M54.16 Radiculopathy, lumbar region
CPT/HCPCS: 36415; 80053; 84132; 85025

== ENCOUNTER 2016-08-14 10:46 | Outpatient (RCR) | payer OTHER, MEDICARE ==
--- OUTSIDE RECORDS SUMMARY | 2016-07-20 09:43 | XMS REPORT | Continuity of Care Document ---
Author Author [facility] Organization [facility] Address Unknown Phone Unavailable Care Team Providers Care Vial Gauger Name Role Phone SHARLENE RUDOLPH DO PCP Insurance Providers Payer Name Policy Number Subscriber Name Relationship [employer] [id number] Charla Holland 20 Self / Same As Patient Advance Directives Directive Response Recorded Date/Time Advance Directives No 02/19/15 8:21am Health Care Power of Reheater Helper No 02/19/15 8:21am Organ Donor Yes 02/19/15 [...] Discharge/Depart Date Attending Provider Registered Clinic [facility] 02/06/16 7:25am BIJU ROJAS MD Registered Clinic [facility] 01/28/16 10:29am BIJU ROJAS MD Discharged Recurring [facility] 11/26/15 10:42am 11:59pm BIJU ROJAS MD
[~2016-08-14 10:46] MED LIST changes: +DICL100G18 TOP; +GABA-486 PO
== END 2016-08-14 14:48 | disposition home or self-care (01) ==
PROVIDERS: ATTEND Orthopaedic Surgery
DX: Z47.1 Aftercare following joint replacement surgery (principal); Z96.641 Presence of right artificial hip joint

== ENCOUNTER 2017-01-11 09:47 | Outpatient (RCR) | payer OTHER, MEDICARE | END 2017-01-11 12:26 | disposition home or self-care (01) | PROVIDERS: ATTEND Orthopaedic Surgery | DX: M70.61 Trochanteric bursitis, right hip (principal); Z96.641 Presence of right artificial hip joint ==

== ENCOUNTER 2017-02-09 08:42 | Outpatient (RCR) | payer MEDICARE ==
[2016-11-17 10:27] LABS: BASOPHILS # (AUTO) 0.1 10^3/uL (0.0-0.1); BASOPHILS % (AUTO) 1 % (0-10); EOSINOPHILS # (AUTO) 0.3 10^3/uL (0.0-0.3); EOSINOPHILS % (AUTO) 3 % (0-10); LYMPHOCYTES % (AUTO) 24 % (12-44); MEAN CORPUSCULAR HEMOGLOBIN 31 PG (25-34); MEAN CORPUSCULAR HGB CONC 33 G/DL (32-36); MEAN CORPUSCULAR VOLUME 93 FL (80-99); MEAN PLATELET VOLUME 9.8 FL (7.4-10.4); MONOCYTES # (AUTO) 0.8 X 10^3 (0.0-1.0); MONOCYTES % (AUTO) 9 % (0-12); NEUTROPHILS # (AUTO) 5.4 X 10^3 (1.8-7.8); NEUTROPHILS % (AUTO) 63 % (42-75); PLATELET COUNT 203 10^3/uL (130-400); RED BLOOD COUNT 4.75 10^6/uL (4.35-5.85); RED CELL DISTRIBUTION WIDTH 13.7 % (10.0-14.5); WHITE BLOOD COUNT 8.5 10^3/uL (4.3-11.0)
[2016-11-17 10:49] LABS: ALANINE AMINOTRANSFERASE 17 U/L (0-55); ALBUMIN 4.2 GM/DL (3.2-4.5); ANION GAP 7 MMOL/L (5-14); ASPARTATE AMINO TRANSFERASE 16 U/L (5-34); BILIRUBIN,TOTAL 0.5 MG/DL (0.1-1.0); BLOOD UREA NITROGEN 13 MG/DL (7-18); BUN/CREATININE RATIO 18 (0-20); CALCIUM 9.6 MG/DL (8.5-10.1); CARBON DIOXIDE 31 MMOL/L (21-32); CHLORIDE 106 MMOL/L (98-107); CREATININE SERUM 0.71 MG/DL (0.60-1.30); GFR ESTIMATED > 60; GLUCOSE 87 MG/DL (70-105); SODIUM 144 MMOL/L (135-145); TOTAL PROTEIN 6.3 GM/DL (6.4-8.2)
== END 2017-02-15 | disposition home or self-care (01) ==
LOC: ONC 08:42
PROVIDERS: ATTEND Internal Medicine Hematology & Oncology
DX: Z08 Encounter for follow-up examination after completed treatment for malignant neoplasm (principal); Z85.3 Personal history of malignant neoplasm of breast; I10 Essential (primary) hypertension; F41.9 Anxiety disorder, unspecified; Z79.899 Other long term (current) drug therapy; Z92.3 Personal history of irradiation
CPT/HCPCS: 36415; 80053; 85025; 86300; 99213

== ENCOUNTER → 2017-02-09 | Outpatient (CLI) | payer MEDICARE, OTHER ==
[2017-02-09 09:02] LABS: BASOPHILS # (AUTO) 0.2 10^3/uL (0.0-0.1); BASOPHILS % (AUTO) 2 % (0-10); EOSINOPHILS # (AUTO) 0.3 10^3/uL (0.0-0.3); EOSINOPHILS % (AUTO) 3 % (0-10); LYMPHOCYTES # (AUTO) 2.1 X 10^3 (1.0-4.0); LYMPHOCYTES % (AUTO) 21 % (12-44); MEAN CORPUSCULAR HEMOGLOBIN 31 PG (25-34); MEAN CORPUSCULAR HGB CONC 33 G/DL (32-36); MEAN CORPUSCULAR VOLUME 93 FL (80-99); MEAN PLATELET VOLUME 9.8 FL (7.4-10.4); MONOCYTES # (AUTO) 0.9 X 10^3 (0.0-1.0); MONOCYTES % (AUTO) 9 % (0-12); NEUTROPHILS # (AUTO) 6.6 X 10^3 (1.8-7.8); NEUTROPHILS % (AUTO) 65 % (42-75); PLATELET COUNT 217 10^3/uL (130-400); RED BLOOD COUNT 4.56 10^6/uL (4.35-5.85); RED CELL DISTRIBUTION WIDTH 13.2 % (10.0-14.5); WHITE BLOOD COUNT 10.1 10^3/uL (4.3-11.0)
[2017-02-09 09:26] LABS: ALANINE AMINOTRANSFERASE 16 U/L (0-55); ANION GAP 10 MMOL/L (5-14); ASPARTATE AMINO TRANSFERASE 16 U/L (5-34); BILIRUBIN,TOTAL 0.5 MG/DL (0.1-1.0); BLOOD UREA NITROGEN 13 MG/DL (7-18); BUN/CREATININE RATIO 17; CALCIUM 9.8 MG/DL (8.5-10.1); CARBON DIOXIDE 26 MMOL/L (21-32); CHLORIDE 107 MMOL/L (98-107); CREATININE SERUM 0.76 MG/DL (0.60-1.30); GFR ESTIMATED > 60; GLUCOSE 90 MG/DL (70-105); POTASSIUM 4.1 MMOL/L (3.6-5.0); SODIUM 143 MMOL/L (135-145); TOTAL PROTEIN 6.6 GM/DL (6.4-8.2)
--- NOTE | 2017-02-09 12:44 | Diagnostic Imaging Report ---
INDICATION: Breast cancer. Comparison made to prior examination 01/28/2016; 01/14/2015; 01/12/2014. FINDINGS: There is a moderate amount of residual fibroglandular tissue bilaterally. There are stable post therapeutic changes in the left breast. There are vascular calcifications and a few benign-type calcifications. There is no dominant mass, spiculated lesion, or suspicious calcifications identified. Skin, nipples, and axilla are unremarkable. IMPRESSION: Category 2 benign. ACR BI-RADS Category 2: Benign findings. Result letter will be mailed to the patient. Note: At least 10% of breast cancer is not imaged by mammography. Dictated by: Dictated on workstation # [id number]
== END ==
LOC: RAD 07:55
PROVIDERS: ATTEND Internal Medicine Hematology & Oncology
DX: Z85.3 Personal history of malignant neoplasm of breast (principal); Z87.898 Personal history of other specified conditions
CPT/HCPCS: 36415; 77066; 80053; 85025; 86300

== ENCOUNTER 2017-04-08 10:45 | Outpatient (RCR) | payer MEDICARE, OTHER | END 2017-05-19 14:13 | disposition home or self-care (01) | PROVIDERS: ATTEND Orthopaedic Surgery | DX: M70.71 Other bursitis of hip, right hip (principal) ==

== ENCOUNTER → 2017-08-10 | Outpatient (CLI) | payer MEDICARE ==
[~2017-08-10] MED LIST changes: +ACHD5005 PO; -HYDR-3812 PO
--- NOTE | 2017-08-10 16:16 | Diagnostic Imaging Report ---
INDICATION: Hip pain. AP view of the pelvis is obtained with coned AP and lateral views of the right hip. FINDINGS: Note is made of posterior lumbar spinal fusion. There is right hip hemiarthroplasty. No fracture is identified. There is mild degenerative change within the left sacroiliac joint and within the pubic symphysis. IMPRESSION: No acute abnormality is identified. There has been previous surgery in the lumbar spine and right hip without evidence of complication. Dictated by: Dictated on workstation # [id number]
--- NOTE | 2017-08-10 17:53 | Diagnostic Imaging Report ---
PROCEDURE: MRI lumbar spine. TECHNIQUE: Multiplanar, multisequence MRI of the lumbar spine was performed without contrast. INDICATION: Low back pain. Patient has had prior lumbar spine surgery. COMPARISON: Correlation is made with prior MRI of the lumbar spine from 10/10/2015. FINDINGS: Alignment is normal. There are postop changes of L4 decompression laminectomy as well as L3-4 posterior instrumented fusion. There are vertical stabilization rods and bipedicular screws transfixing the L3-4 level. Vertebral body heights are maintained. No acute compression fracture or geographic marrow lesion is seen. There is generalized degenerative disc disease with disc space narrowing and desiccation, similar to prior exam. The conus is unremarkable at the L1 level. T12-L1: Hypertrophic facet changes and ligamentous thickening are present. There is trefoil configuration of the thecal sac. There is moderate bilateral neural foraminal stenosis. The appearance is similar to prior exam. L1-2: Significant hypertrophic facet changes are noted with ligamentous thickening and broad-based disc/osteophyte complex. This does produce moderate trefoil stenosis to the canal. No significant neural foraminal stenosis is seen. L2-3: Central canal is patent. Neural foramina appear patent. L3-4: Central canal is widely patent. No neural foraminal stenosis is seen. L4-5: No significant central canal or neural foraminal stenosis is seen. L5-S1: Central canal is widely patent. There is aejw-hc-vynjhdwh bilateral neural foraminal stenosis due to broad-based disc/osteophyte complex. IMPRESSION: Postop changes to the lumbar spine, as described with L3-4 posterior instrumented fusion. There is multilevel central canal and neural foraminal stenosis, described level by level above. Overall appearance is very similar to prior examination from 10/10/2015. Dictated by: Dictated on workstation # [id number]
== END ==
LOC: RAD 15:22
PROVIDERS: ATTEND Internal Medicine
DX: M48.05 Spinal stenosis, thoracolumbar region (principal); M48.07 Spinal stenosis, lumbosacral region; M25.551 Pain in right hip; Z98.1 Arthrodesis status
CPT/HCPCS: 72148

== ENCOUNTER → 2017-11-16 | Outpatient (CLI) | payer MEDICARE | LOC: ONC 12:59 | PROVIDERS: ATTEND Internal Medicine Hematology & Oncology | DX: Z08 Encounter for follow-up examination after completed treatment for malignant neoplasm (principal); Z85.3 Personal history of malignant neoplasm of breast; R97.8 Other abnormal tumor markers; I10 Essential (primary) hypertension; F41.9 Anxiety disorder, unspecified; Z90.710 Acquired absence of both cervix and uterus; Z92.3 Personal history of irradiation; Z79.82 Long term (current) use of aspirin; Z79.899 Other long term (current) drug therapy | CPT/HCPCS: 99213 ==

== ENCOUNTER → 2018-02-10 | Outpatient (CLI) | payer MEDICARE ==
[~2018-02-10] MED LIST changes: -LOSA100T28 PO; +LOSA100T8 PO; -LOSA50TA36 PO; +LOSA50TA7 PO
--- NOTE | 2018-02-10 11:49 | Diagnostic Imaging Report ---
INDICATION: Routine screening. Comparison is made with prior mammograms from 02/09/2017 and 01/28/2016. 2-D and 3-D bilateral screening mammography was performed with CAD. The current study was also evaluated with a Computer Aided Detection (CAD) system. FINDINGS: Post-therapeutic changes of left breast are again noted. Benign parenchymal and vascular calcifications appear to be stable. No new mass or malignant-appearing microcalcifications are seen. The axillae are unremarkable. IMPRESSION: No mammographic features suspicious for malignancy are identified. ACR BI-RADS Category 2: Benign findings. Result letter will be mailed to the patient. Note: At least 10% of breast cancer is not imaged by mammography. Dictated by: Dictated on workstation # [id number]
== END ==
LOC: RAD 09:32
PROVIDERS: ATTEND Internal Medicine Hematology & Oncology
DX: Z12.31 Encounter for screening mammogram for malignant neoplasm of breast (principal)
CPT/HCPCS: 77067

== ENCOUNTER 2018-03-10 09:44 | Outpatient (RCR) | payer MEDICARE ==
[2018-03-10 09:54] LABS: BASOPHILS # (AUTO) 0.2 10^3/uL (0.0-0.1); BASOPHILS % (AUTO) 3 % (0-10); EOSINOPHILS # (AUTO) 0.6 10^3/uL (0.0-0.3); EOSINOPHILS % (AUTO) 8 % (0-10); HEMATOCRIT 40 % (35-52); HEMOGLOBIN 13.8 G/DL (11.5-16.0); LYMPHOCYTES # (AUTO) 2.1 X 10^3 (1.0-4.0); LYMPHOCYTES % (AUTO) 28 % (12-44); MEAN CORPUSCULAR HEMOGLOBIN 32 PG (25-34); MEAN CORPUSCULAR HGB CONC 34 G/DL (32-36); MEAN CORPUSCULAR VOLUME 94 FL (80-99); MEAN PLATELET VOLUME 9.7 FL (7.4-10.4); MONOCYTES # (AUTO) 0.7 X 10^3 (0.0-1.0); MONOCYTES % (AUTO) 9 % (0-12); NEUTROPHILS # (AUTO) 3.9 X 10^3 (1.8-7.8); NEUTROPHILS % (AUTO) 53 % (42-75); PLATELET COUNT 235 10^3/uL (130-400); RED BLOOD COUNT 4.26 10^6/uL (4.35-5.85); RED CELL DISTRIBUTION WIDTH 13.1 % (10.0-14.5); WHITE BLOOD COUNT 7.5 10^3/uL (4.3-11.0)
[2018-03-10 10:17] LABS: ALANINE AMINOTRANSFERASE 17 U/L (0-55); ALBUMIN 4.2 GM/DL (3.2-4.5); ALKALINE PHOSPHATASE 85 U/L (40-136); BILIRUBIN,TOTAL 0.4 MG/DL (0.1-1.0); BUN/CREATININE RATIO 13; CALCIUM 9.7 MG/DL (8.5-10.1); CARBON DIOXIDE 25 MMOL/L (21-32); CHLORIDE 107 MMOL/L (98-107); CREATININE SERUM 0.71 MG/DL (0.60-1.30); GFR ESTIMATED > 60; GLUCOSE 87 MG/DL (70-105); POTASSIUM 3.9 MMOL/L (3.6-5.0); SODIUM 142 MMOL/L (135-145); TOTAL PROTEIN 6.8 GM/DL (6.4-8.2)
== END 2018-06-08 | disposition home or self-care (01) ==
LOC: ONC 09:44
PROVIDERS: ATTEND Internal Medicine Hematology & Oncology
DX: Z08 Encounter for follow-up examination after completed treatment for malignant neoplasm (principal); Z85.3 Personal history of malignant neoplasm of breast; R97.8 Other abnormal tumor markers; I10 Essential (primary) hypertension; F41.9 Anxiety disorder, unspecified; Z90.710 Acquired absence of both cervix and uterus; Z92.3 Personal history of irradiation; Z79.82 Long term (current) use of aspirin; Z79.899 Other long term (current) drug therapy
CPT/HCPCS: 36415; 80053; 85025; 99213

== ENCOUNTER → 2018-09-14 | Outpatient (CLI) | payer MEDICARE ==
[~2018-09-14] MED LIST changes: +LOSA100T57 PO; -LOSA100T8 PO; +LOSA50TA63 PO; -LOSA50TA7 PO
--- NOTE | 2018-09-14 14:25 | Diagnostic Imaging Report ---
PROCEDURE: MRI right joint lower extremity without contrast. TECHNIQUE: Multiplanar, multisequence non contrast-enhanced MRI of the right lower extremity was accomplished. INDICATION: Right knee pain and recent fall. FINDINGS: The anterior cruciate and posterior cruciate ligaments are intact. Both the superficial and deep components of the medial collateral ligament are intact. Biceps femoris, fibular collateral and iliotibial band are intact. There is three-compartment osteoarthritic change. There is marked degenerative maceration of both anterior and posterior horns of the lateral meniscus. There are some degenerative maceration and tearing of the posterior horn of the medial meniscus. Quadriceps tendon and patellar tendons are intact. There is a small knee joint effusion. There is loss of articular cartilage in the patella with some minimal underlying marrow edema. There is loss of articular cartilage as well in the lateral knee joint compartment where there is some subchondral sclerosis and marginal osteophytosis. There is small amount of underlying marrow edema. There are no other focal soft tissue abnormalities. IMPRESSION: 1. Three-compartment osteoarthritic change most severe in the patellofemoral joint and lateral knee joint compartment. 2. Degenerative maceration of both the medial and lateral meniscus as described. 3. Small knee joint effusion. Dictated by: Dictated on workstation # [id number]
== END ==
LOC: RAD 11:53
PROVIDERS: ATTEND Internal Medicine
DX: M17.11 Unilateral primary osteoarthritis, right knee (principal); M23.303 Other meniscus derangements, unspecified medial meniscus, right knee; M23.300 Other meniscus derangements, unspecified lateral meniscus, right knee; I10 Essential (primary) hypertension
CPT/HCPCS: 73721

== ENCOUNTER 2018-11-10 10:30 | Outpatient (RCR) | payer MEDICARE | END 2018-11-10 11:19 | disposition home or self-care (01) | PROVIDERS: ATTEND Nurse Practitioner | DX: M22.41 Chondromalacia patellae, right knee (principal) ==

== ENCOUNTER → 2019-02-27 | Outpatient (CLI) | payer MEDICARE ==
--- NOTE | 2019-02-27 12:40 | Diagnostic Imaging Report ---
INDICATION: Routine screening. COMPARISON: Comparison is made with prior mammograms from 02/10/2018 and 02/09/2017. TECHNIQUE: 2-D and 3-D bilateral screening mammography was performed. The current study was also evaluated with a Computer Aided Detection (CAD) system. 3-D tomosynthesis was also performed and reviewed. FINDINGS: Scattered fibroglandular densities are noted bilaterally. Post-therapeutic changes in the left breast are again noted and appear stable. There are calcifications in the posterior central right breast, which may be increasing. Additional views are recommended. No discrete mass is seen. The axillae are unremarkable. IMPRESSION: Right breast calcifications, slightly increased since last year's exam. Additional views are recommended. ACR BI-RADS Category 0: Incomplete. (Needs additional imaging evaluation). Result letter will be mailed to the patient. Note: At least 10% of breast cancer is not imaged by mammography. Dictated by: Dictated on workstation # [id number]
== END ==
LOC: RAD 10:05
PROVIDERS: ATTEND Internal Medicine Hematology & Oncology
DX: Z12.31 Encounter for screening mammogram for malignant neoplasm of breast (principal); R92.1 Mammographic calcification found on diagnostic imaging of breast
CPT/HCPCS: 77067

== ENCOUNTER → 2019-03-03 | Outpatient (CLI) | payer MEDICARE ==
--- NOTE | 2019-03-03 18:54 | Diagnostic Imaging Report ---
INDICATION: Right breast calcifications. Patient presents for additional views. COMPARISON: Correlation is made with recent screening study from 02/27/2019 as well as prior mammograms from 02/10/2018 and 02/09/2017. EXAMINATION: Unilateral right 2D and 3D diagnostic mammography was performed including magnification CC and ML views as well as conventional 90 degree lateral views. FINDINGS: Additional views show a cluster of microcalcifications in the mid posterior depth right breast at the nipple line on both the ML and CC views. These calcifications are indeterminant. There is some mild pleomorphism present. No soft tissue mass is seen. IMPRESSION: Increasing cluster of microcalcifications in the central right breast. Tissue sampling would be recommended. These would be amenable to stereotactic biopsy. ACR BI-RADS Category 4: Suspicious abnormality. Result letter will be mailed to the patient. Note: At least 10% of breast cancer is not imaged by mammography. Dictated on workstation # [id number]
== END ==
LOC: RAD 12:29
PROVIDERS: ATTEND Internal Medicine Hematology & Oncology
DX: R92.0 Mammographic microcalcification found on diagnostic imaging of breast (principal)

== ENCOUNTER 2019-03-22 13:45 | Outpatient (RCR) | payer MEDICARE ==
[2019-02-27 11:04] LABS: BASOPHILS # (AUTO) 0.1 10^3/uL (0.0-0.1); BASOPHILS % (AUTO) 1 % (0-10); EOSINOPHILS # (AUTO) 0.2 10^3/uL (0.0-0.3); EOSINOPHILS % (AUTO) 3 % (0-10); HEMATOCRIT 40 % (35-52); HEMOGLOBIN 13.3 G/DL (11.5-16.0); LYMPHOCYTES # (AUTO) 2.2 X 10^3 (1.0-4.0); LYMPHOCYTES % (AUTO) 25 % (12-44); MEAN CORPUSCULAR HEMOGLOBIN 32 PG (25-34); MEAN CORPUSCULAR HGB CONC 33 G/DL (32-36); MEAN CORPUSCULAR VOLUME 97 FL (80-99); MEAN PLATELET VOLUME 9.8 FL (7.4-10.4); MONOCYTES # (AUTO) 0.8 X 10^3 (0.0-1.0); MONOCYTES % (AUTO) 9 % (0-12); NEUTROPHILS # (AUTO) 5.6 X 10^3 (1.8-7.8); NEUTROPHILS % (AUTO) 62 % (42-75); PLATELET COUNT 193 10^3/uL (130-400); RED CELL DISTRIBUTION WIDTH 12.9 % (10.0-14.5)
[2019-02-27 11:24] LABS: ALANINE AMINOTRANSFERASE 16 U/L (0-55); ALBUMIN 4.2 GM/DL (3.2-4.5); ALKALINE PHOSPHATASE 83 U/L (40-136); BILIRUBIN,TOTAL 0.4 MG/DL (0.1-1.0); BUN/CREATININE RATIO 17; CALCIUM 9.6 MG/DL (8.5-10.1); CARBON DIOXIDE 27 MMOL/L (21-32); CHLORIDE 108 MMOL/L (98-107); CREATININE SERUM 0.69 MG/DL (0.60-1.30); GFR ESTIMATED > 60; GLUCOSE 89 MG/DL (70-105); SODIUM 142 MMOL/L (135-145); TOTAL PROTEIN 6.6 GM/DL (6.4-8.2)
== END 2019-05-28 | disposition home or self-care (01) ==
LOC: ONC 13:45
PROVIDERS: ATTEND Internal Medicine Hematology & Oncology
DX: Z08 Encounter for follow-up examination after completed treatment for malignant neoplasm (principal); Z85.3 Personal history of malignant neoplasm of breast; R97.8 Other abnormal tumor markers; I10 Essential (primary) hypertension; F41.9 Anxiety disorder, unspecified; Z90.710 Acquired absence of both cervix and uterus; Z92.3 Personal history of irradiation; Z79.82 Long term (current) use of aspirin; Z79.899 Other long term (current) drug therapy
CPT/HCPCS: 36415; 80053; 85025; 99213

== ENCOUNTER → 2019-07-25 | Outpatient (CLI) | payer MEDICARE ==
--- NOTE | 2019-07-25 12:55 | Diagnostic Imaging Report ---
INDICATION: Cough, ductal carcinoma in situ right breast FINDINGS: Heart size is normal. There is some chronic bibasilar interstitial infiltrates. No pleural effusion or pneumothorax. Mediastinum is unremarkable. IMPRESSION: Chronic appearing bibasilar interstitial infiltrates otherwise unremarkable. Dictated by: Dictated on workstation # [id number]
== END ==
LOC: RAD 12:05
PROVIDERS: ATTEND Internal Medicine
DX: D05.11 Intraductal carcinoma in situ of right breast (principal); R05 Cough
CPT/HCPCS: 71046

== ENCOUNTER 2020-04-01 14:25 | Outpatient (RCR) | payer MEDICARE ==
[~2020-04-01 14:25] MED LIST changes: +ASPI-1238 PO; -ASPI-983 PO
[2020-04-01 14:46] LABS: BASOPHILS # (AUTO) 0.1 10^3/uL (0.0-0.1); BASOPHILS % (AUTO) 1 % (0-10); EOSINOPHILS # (AUTO) 0.2 10^3/uL (0.0-0.3); EOSINOPHILS % (AUTO) 2 % (0-10); HEMATOCRIT 41 % (35-52); HEMOGLOBIN 13.5 g/dL (11.5-16.0); LYMPHOCYTES # (AUTO) 2.1 10^3/uL (1.0-4.0); LYMPHOCYTES % (AUTO) 23 % (12-44); MEAN CORPUSCULAR HEMOGLOBIN 32 pg (25-34); MEAN CORPUSCULAR HGB CONC 33 g/dL (32-36); MEAN CORPUSCULAR VOLUME 97 fL (80-99); MEAN PLATELET VOLUME 9.4 fL (9.0-12.2); MONOCYTES # (AUTO) 0.7 10^3/uL (0.0-1.0); MONOCYTES % (AUTO) 7 % (0-12); NEUTROPHILS # (AUTO) 6.2 10^3/uL (1.8-7.8); NEUTROPHILS % (AUTO) 67 % (42-75); PLATELET COUNT 211 10^3/uL (130-400); WHITE BLOOD COUNT 9.2 10^3/uL (4.3-11.0)
[2020-04-01 15:05] LABS: ALBUMIN 4.3 GM/DL (3.2-4.5); BILIRUBIN,TOTAL 0.4 MG/DL (0.1-1.0); CALCIUM 9.6 MG/DL (8.5-10.1); POTASSIUM 3.9 MMOL/L (3.6-5.0)
== END 2020-06-30 | disposition still patient (30) ==
LOC: ONC 14:25
PROVIDERS: ATTEND Internal Medicine Hematology & Oncology
DX: D05.11 Intraductal carcinoma in situ of right breast (principal); Z98.890 Other specified postprocedural states; Z92.3 Personal history of irradiation
CPT/HCPCS: 80053; 85025; G0463; 99213

== ENCOUNTER 2020-09-30 13:02 | Outpatient (RCR) | payer MEDICARE ==
[~2020-09-30 13:02] MED LIST changes: -AMIT10TA6 PO; +AMT10T PO; +SERT-413 PO; -SERT50TA9 PO
[2020-09-30 14:19] LABS: BASOPHILS # (AUTO) 0.2 10^3/uL (0.0-0.1); BASOPHILS % (AUTO) 2 % (0-10); EOSINOPHILS # (AUTO) 0.3 10^3/uL (0.0-0.3); EOSINOPHILS % (AUTO) 3 % (0-10); HEMATOCRIT 42 % (35-52); HEMOGLOBIN 13.9 g/dL (11.5-16.0); LYMPHOCYTES # (AUTO) 2.3 10^3/uL (1.0-4.0); LYMPHOCYTES % (AUTO) 22 % (12-44); MEAN CORPUSCULAR HEMOGLOBIN 33 pg (25-34); MEAN CORPUSCULAR HGB CONC 33 g/dL (32-36); MEAN CORPUSCULAR VOLUME 100 fL (80-99); MEAN PLATELET VOLUME 9.4 fL (9.0-12.2); MONOCYTES # (AUTO) 0.7 10^3/uL (0.0-1.0); MONOCYTES % (AUTO) 7 % (0-12); NEUTROPHILS # (AUTO) 6.9 10^3/uL (1.8-7.8); NEUTROPHILS % (AUTO) 67 % (42-75); PLATELET COUNT 227 10^3/uL (130-400); WHITE BLOOD COUNT 10.3 10^3/uL (4.3-11.0)
[2020-09-30 14:41] LABS: ALANINE AMINOTRANSFERASE 14 U/L (0-55); ALBUMIN 4.3 GM/DL (3.2-4.5); ALKALINE PHOSPHATASE 93 U/L (40-136); BILIRUBIN,TOTAL 0.3 MG/DL (0.1-1.0); BUN/CREATININE RATIO 27; CALCIUM 9.7 MG/DL (8.5-10.1); CARBON DIOXIDE 27 MMOL/L (21-32); CHLORIDE 105 MMOL/L (98-107); CREATININE SERUM 0.74 MG/DL (0.60-1.30); GFR ESTIMATED > 60; GLUCOSE 98 MG/DL (70-105); POTASSIUM 3.8 MMOL/L (3.6-5.0); SODIUM 142 MMOL/L (135-145)
== END 2020-12-29 | disposition home or self-care (01) ==
LOC: ONC 13:02
PROVIDERS: ATTEND Internal Medicine Hematology & Oncology
DX: D05.11 Intraductal carcinoma in situ of right breast (principal); I10 Essential (primary) hypertension; F41.9 Anxiety disorder, unspecified; Z98.890 Other specified postprocedural states; Z92.3 Personal history of irradiation; Z85.3 Personal history of malignant neoplasm of breast; Z90.12 Acquired absence of left breast and nipple
CPT/HCPCS: 80053; 85025; G0463; 99213

== ENCOUNTER → 2020-12-12 | Outpatient (CLI) | payer MEDICARE ==
--- NOTE | 2020-12-12 18:03 | Diagnostic Imaging Report ---
INDICATION: Interstitial fibrosis PA and lateral chest obtained at 0322 p.m. and compared to 07/25/2019. Heart is normal in size. Mediastinal silhouette is unremarkable. There is an unchanged elevation of the left hemidiaphragm. There are mild chronic appearing increased basilar markings which are similar to the prior study. There is no pneumothorax or pleural fluid. IMPRESSION: Mild chronic appearing increased interstitial markings in the lung bases, similar to the prior study. No new abnormality. Dictated by: Dictated on workstation # [id number]
== END ==
LOC: RAD 14:58
PROVIDERS: ATTEND Internal Medicine
DX: J84.10 Pulmonary fibrosis, unspecified (principal)
CPT/HCPCS: 71046

== ENCOUNTER → 2021-03-18 | Outpatient (CLI) | payer MEDICARE ==
--- NOTE | 2021-03-18 17:40 | Diagnostic Imaging Report ---
INDICATION: Routine screening. COMPARISON is made with prior mammograms from 03/05/2020 and 02/27/2019. 2-D and 3-D bilateral screening mammography was performed with CAD. Both breasts are heterogeneously dense, limiting the sensitivity of mammography. Post therapeutic changes of the left breast are again noted. No recurrent mass is identified. There are benign calcifications in both breasts. No definite malignant appearing microcalcifications are seen. Axillae are unremarkable. IMPRESSION: BI-RADS Category 2 No mammographic features suspicious for malignancy are identified. ACR BI-RADS Category 2: Benign findings. Result letter will be mailed to the patient. Note: At least 10% of breast cancer is not imaged by mammography. Dictated by: Dictated on workstation # [id number]
== END ==
LOC: RAD 11:15
PROVIDERS: ATTEND Internal Medicine Hematology & Oncology
DX: Z12.31 Encounter for screening mammogram for malignant neoplasm of breast (principal)
CPT/HCPCS: 77063; 77067

== ENCOUNTER → 2021-04-08 | Outpatient (CLI) | payer MEDICARE ==
[2021-04-08 13:24] LABS: BASOPHILS # (AUTO) 0.1 10^3/uL (0.0-0.1); BASOPHILS % (AUTO) 1 % (0-10); EOSINOPHILS # (AUTO) 0.3 10^3/uL (0.0-0.3); EOSINOPHILS % (AUTO) 3 % (0-10); HEMATOCRIT 39 % (35-52); HEMOGLOBIN 12.7 g/dL (11.5-16.0); LYMPHOCYTES % (AUTO) 21 % (12-44); MEAN CORPUSCULAR HEMOGLOBIN 32 pg (25-34); MEAN CORPUSCULAR HGB CONC 33 g/dL (32-36); MEAN CORPUSCULAR VOLUME 97 fL (80-99); MEAN PLATELET VOLUME 9.5 fL (9.0-12.2); MONOCYTES # (AUTO) 0.7 10^3/uL (0.0-1.0); MONOCYTES % (AUTO) 7 % (0-12); NEUTROPHILS # (AUTO) 6.6 10^3/uL (1.8-7.8); NEUTROPHILS % (AUTO) 68 % (42-75); PLATELET COUNT 196 10^3/uL (130-400); WHITE BLOOD COUNT 9.7 10^3/uL (4.3-11.0)
[2021-04-08 13:40] LABS: ALBUMIN 3.8 GM/DL (3.2-4.5); BILIRUBIN,TOTAL 0.4 MG/DL (0.1-1.0); CALCIUM 8.8 MG/DL (8.5-10.1); CREATININE SERUM 0.67 MG/DL (0.60-1.30); POTASSIUM 3.8 MMOL/L (3.6-5.0); TOTAL PROTEIN 6.1 GM/DL (6.4-8.2)
== END ==
LOC: EDSTATUS 12:56 → ONC 12:57
PROVIDERS: ATTEND Internal Medicine Hematology & Oncology
DX: D05.11 Intraductal carcinoma in situ of right breast (principal); I10 Essential (primary) hypertension; Z92.3 Personal history of irradiation; Z85.3 Personal history of malignant neoplasm of breast; Z90.12 Acquired absence of left breast and nipple; Z78.0 Asymptomatic menopausal state
CPT/HCPCS: 80053; 85025; G0463; 99213

== ENCOUNTER → 2021-04-22 | Outpatient (CLI) | payer MEDICARE ==
--- NOTE | 2021-04-22 14:35 | Diagnostic Imaging Report ---
INDICATION: Postmenopausal screening COMPARISON: 08/17/2012 FINDINGS: AP Spine L1-L4: [BMD (g/cm2): na`] [T-Score: na] [Z-Score: na] [BMD Previous: na] [BMD % Change: na] LT Hip Neck: [BMD (g/cm2): 0.829] [T-Score: -1.5] [Z-Score: 0.9] LT Hip Total: [BMD (g/cm2):0.893] [T-Score:-0.9] [Z-Score: 1.3] [BMD Previous: 0.926] [BMD % Change: -3.6] RT Hip Neck: [BMD (g/cm2):na] [T-Score:na] [Z-Score:na] RT Hip Total: [BMD (g/cm2):na] [T-score:na] [Z-Score:na] [BMD Previous:na] [BMD % Change:na] *Indicates significant change from prior examination based on 95% confidence level. World Health Organization criteria for BMD interpretation classify patients as Normal (T-score at or above -1.0), Osteopenic (T-score between -1.0 and -2.5) or Osteoporotic (T-score at or below -2.5). LIMITATIONS AND MODIFICATION: None. FRACTURE RISK (FRAX SCORE): The ten year probability of (%): Major Osteoporotic Fracture: [13.8] Hip Fracture: [3.7] IMPRESSION: 1. Osteopenia (Low bone mass). 2. No significant change in bone mineral density since prior examination. 3. See below National Osteoporosis Foundation guidelines on when to potentially initiate pharmacologic therapy. Based on the National Osteoporosis Foundation Guidelines, pharmacologic treatment should be initiated in any of the following, unless clinical conditions suggest otherwise: * Any patient with prior fragility fracture of the hip or vertebrae. A spine fracture indicates 5X risk for subsequent spine fracture and 2X risk for subsequent hip fracture. * Osteoporosis (T-score <-2.5). * Postmenopausal women and men age 50 and older with low bone mass/osteopenia (T-score between -1.0 and -2.5) by DXA and 10-year major osteoporotic fracture greater than 20% or a 10-year probability of hip fracture greater than 3%. These fracture risks are supplied above in the FRAX score, if applicable. * Clinician judgement and/or patient preferences may indicate treatment for people with 10-year fracture probabilities above or below these levels. Dictated by: Dictated on workstation # [id number]
== END ==
LOC: RAD 13:30
PROVIDERS: ATTEND Internal Medicine Hematology & Oncology
DX: Z13.820 Encounter for screening for osteoporosis (principal); M85.80 Other specified disorders of bone density and structure, unspecified site; Z78.0 Asymptomatic menopausal state; Z85.3 Personal history of malignant neoplasm of breast
CPT/HCPCS: 77080

== ENCOUNTER → 2021-06-11 | Outpatient (CLI) | payer MEDICARE ==
[~2021-06-11] MED LIST changes: +DICY20TA PO; -DICY20TA10 PO
--- NOTE | 2021-06-11 12:51 | Diagnostic Imaging Report ---
INDICATION: Facial trauma. 4 views of the facial bones do not show any appreciable fractures. The patient is edentulous. Paranasal sinuses are clear. IMPRESSION: Negative facial bones. Dictated by: Dictated on workstation # [id number]
== END ==
LOC: RAD 11:57
PROVIDERS: ATTEND Internal Medicine
DX: S00.83XA Contusion of other part of head, initial encounter (principal); X58.XXXA Exposure to other specified factors, initial encounter
CPT/HCPCS: 70150